=== PATIENT | female | born 1990 | race Caucasian/White ===

== ENCOUNTER 2025-05-03 18:35 | Inpatient (IN) | payer OTHER, MEDICAID, SELFPAY ==
[2025-05-03 18:35] VITALS: BP 118/84; PULSE 99; RESP 18; TEMP 36.9; O2SAT 100; BMI 19.2
--- NOTE | 2025-05-03 19:13 | EX.ED.SAOD ---
HPI History of Present Illness Chief Complaint: Substance Abuse Detail of Chief Complaint: Requesting detox Informant: patient Narrative Narrative: Patient presents to the emergency department requesting detox from opiates. Patient states that she normally goes to a methadone clinic and missed her appointment yesterday. She normally takes 125 mg daily. Patient also over the last several days has been using heroin. Currently feeling chills and sweats. Denies any other complaints. She does not drink alcohol. Patient also states she recently used cocaine. [facility] Medical History (Updated 05/03/25 @ 20:[address] Ángel Smith, DO) Tobacco use Polysubstance abuse Medical History no medical history Allergy/AdvReac Type Severity Reaction Status Date / Time No Known Allergies Allergy Verified 05/03/25 18:38 Surgical History no surgical history Social History Smoking Status: Current every day smoker tobacco type: cigarettes ROS ROS ED Review of Systems ROS Unobtainable: other Constitutional Constitutional ED: Reports chills, lethargy and sweats; Denies fever(s) or weight loss Eyes Eyes: Denies blurry vision, change in vision or diplopia ENT ENT ED: Denies rhinorrhea or sore throat Cardiovascular Cardiovascular: Denies chest pain, orthopnea or racing heartbeat Respiratory/Chest Respiratory/Chest: Denies cough, dyspnea, dyspnea on exertion, orthopnea or sputum Gastrointestinal Gastrointestinal: Denies abdominal pain, diarrhea, nausea or vomiting Genitourinary Genitourinary ED: Denies dysuria, hematuria or urinary frequency Musculoskeletal Musculoskeletal: Denies arthralgias, back pain, myalgias or neck pain Integumentary Denies abscess, Abrasions or rash Neurologic Neurologic: Denies headache(s) or weakness Psychiatric Psychiatric: Denies anxiety, depression or suicidal thoughts Endocrine Endocrinology: Denies polydipsia, polyphagia or polyuria Hematologic/Lymphatic Hematologic/Lymphatic: Denies easy bleeding, easy bruising or lymphadenopathy Allergic/Immunologic Allergic/Immunologic ED: Denies mouth swelling, tongue swelling or urticaria EXAM Physical Exam Const Vital Signs: 05/03/25 18:35 05/03/25 19:35 Temperature 98.4 F Temperature Source Oral Pulse Rate 99 80 Respiratory Rate 18 Blood Pressure 118/84 H 130/87 H Blood Pressure Mean 95 101 Pulse Ox 100 Oxygen Delivery Method Room Air Positive well nourished and well developed General Appearance ED: well developed and NAD HEENT Reports TM's clear and moist mucous membranes normocephalic and atraumatic; Negative for trauma or tenderness Tympanic Membrane ED: Yes TM's clear Eyes PERRL and EOMs intact bilaterally General Eye ED: Negative for pale conjunctiva or scleral icterus Neck no lymphadenopathy, supple and no JVD General: Negative for tenderness Chest Wall inspection of chest normal and palpation of chest normal Chest: Negative for tenderness Resp normal respiratory effort and clear to auscultation bilaterally Effort and Inspection: Negative for respiratory distress or pain with movement Auscultation: Negative for rhonchi, wheezes or diminished lung sounds Cardio regular rate, regular rhythm, S1 normal heart sound, S2 normal heart sound and no murmurs Peripheral Pulses: pulses 2+ throughout GI normal to inspection, nondistended, normoactive bowel sounds, soft to palpation, non-tender, non-distended and no masses Back/Spine no CVA tenderness and no thoracic nor lumbar tenderness Extremity normal to inspection General Extremety ED: Negative for edema General Extremity: Negative for edema Neuro oriented x3, CN's II-XII intact bilaterally, no sensory deficits noted and gait normal Sensorium / Orientation: awake, alert, oriented to person, oriented to place and oriented to time Motor Exam: strength 5/5 throughout and strength abnormal Psych mental status grossly normal Skin no rashes or lesions noted and no wounds MDM MDM MDM Narrative Medical decision making narrative: Patient presents requesting detox from opiates. She has been using methadone from a clinic but also states that she has used heroin. Patient also admits to using cocaine. Patient had basic labs CBC with differential count of 13.0 with hemoglobin 14 and platelet count of 221. Chemistries unremarkable. LFTs were normal. Toxicology screen positive for methadone as well as fentanyl and cocaine. Alcohol was negative. Serum test was negative. Case discussed with hospitalist will evaluate patient for admission Lab Data Attestation: I reviewed the patient's lab results. Labs: Laboratory Results - last 24 hr 05/03/25 19:00 WBC 13.0 H RBC 4.67 Hgb 14.0 Hct 40.6 MCV 86.9 MCH 30.0 MCHC 34.5 RDW Std Deviation 38.2 RDW Coeff of Evangelista 11.9 Plt Count 221 MPV 11.2 Immature Gran % (Auto) 0.300 Neut % (Auto) 87.6 H Lymph % (Auto) 7.7 L [place] % (Auto) 4.1 Eos % (Auto) 0.0 Baso % (Auto) 0.3 Absolute Neuts (auto) 11.4 H Absolute Lymphs (auto) 1.00 Nucleated RBC % 0 Sodium 138 Potassium 3.8 Chloride 103 Carbon Dioxide 19.1 L Anion Gap 15 BUN 8 Creatinine 0.70 Estim Creat Clear Calc 80.83 Est GFR (MDRD) Non-Af 115 BUN/Creatinine Ratio 12.1 Glucose 128 H Calcium 9.9 Total Bilirubin 0.49 AST 21 ALT 18 Alkaline Phosphatase 66 Total Protein 7.6 Albumin 4.6 Globulin 2.9 Albumin/Globulin Ratio 1.6 Serum , Qual NEGATIVE Urine Opiates Screen NEGATIVE U Buprenorphine Qual NEGATIVE Ur Oxycodone Screen NEGATIVE Urine Methadone Screen PRESUMPTIVE POSITIVE Urine Fentanyl Screen PRESUMPTIVE POSITIVE Ur Barbiturates Screen NEGATIVE Ur Phencyclidine Scrn NEGATIVE Ur Amphetamines Screen NEGATIVE U Benzodiazepines Scrn NEGATIVE Urine Cocaine Screen PRESUMPTIVE POSITIVE U Cannabinoids Screen NEGATIVE Ethyl Alcohol < 10.1 Discharge Plan Triage Chief Complaint: Substance Abuse ED Provider: Ángel Smith Dx/Rx/DC Orders Clinical Impression: Opiate withdrawal, Admitted to substance misuse detoxification center Primary Care Provider: Barb Love NP Referrals: Barb Love SUPERVISOR DRAWING, SUPERVISOR DRAWING-C [Primary Care Provider] - Print Language: Cymraes Disposition Disposition: Acute Care Hospital [facility]
[2025-05-03 19:21] LABS: Hematocrit 40.6 % (37-47); Hemoglobin 14.0 g/dL (12.0-15.0); Immature Granulocytes Count 0.040 X10^3/uL (0.0-0.0); Mean Corp Hgb Conc 34.5 g/dL (32-36); Mean Corpuscular Volume 86.9 fL (81-99); Mean Platelet Vol. 11.2 fl (6.2-12.0); NRBC Flagged by Analyzer 0 % (0-5); Platelet Count 221 K/mm3 (150-450); RBC Distribution Width CV 11.9 % (11.6-14.6); RBC Distribution Width SD 38.2 fl (35.1-43.9); Red Blood Count 4.67 M/mm3 (4.2-5.4); White Blood Count 13.0 K/mm3 (4.4-11.0)
--- OUTSIDE RECORDS SUMMARY | 2025-05-03 19:25 | XMS RPT_ITS | CCD ---
Author Organization [facility] Informat [facility] Partnership [facility] Care Team Providers Care Freight Engineer Name Role Phone MARIAJOSE EDMONDSON Admitting Unavailable MARIAJOSE EDMONDSON Attending Unavailable MARIAJOSE EDMONDSON Attending Unavailable No, Physician Primary Care Provider UnavailAlba Still Unavailable NO, PHYSICIAN Primary Care Unavailable DIANNA SANFORD JR. Attending Unav ailable DIANNA SANFORD JR. Admitting Unav ailable NO, PHYSICIAN Primary Care Unavailable ABDI TELLO Attending Un available ABDI TELLO Admitting Un available NO, PHYSICIAN Primary Care Unavailable MICHAEL BROOKS Attending Unavailable MICHAEL BROOKS Admitting Unavailable NO, PHYSICIAN Primary Care Unavailable MARTY APPLE Attending Unavailable NO, PHYSICIAN Primary Care Unavailable ABDI TELLO Attending Un available ABDI TELLO Admitting Un available GONZALO HWANG Admitting Unav ailable GONZALO HWANG Referring Unav ailable NO, PHYSICIAN Primary Care Unavailable Required, No Pcp Unavailable Unavailable Omar Elliott Unavailable [place] garcia Unavailable Unavailable LexiSHEELA Attending SHEELA Garnica Attending Alley valladares NO, PHYSICIAN Primary Care Unavailable Medications Current Medications Medication Drug Class(es) Dates Sig (Normalized) Sig (Original) brompheniramine maleate 0.4 mg/ml / dextromethorphan hydrobromide 2 mg/ml / pseudoephedrine hydrochloride 6 mg/ml oral solution (5 sources) alpha-Adrenergic Agonist, Uncompetitive H-minmrs-K-aspartat e Receptor Antagonist, Sigma-1 Agonist Start: 05-31-2021 take 5 mL by mouth four times daily brompheniramine/p seudoephedrine/de xtromethorphan [id number]-[id number]-[id number]/5 mL oral syrup ; 5 milliliter(s) orally 4 times a day Quantity: 200 Refills: 0 Ordered: 20-Jun-2021 Omar Elliott Start: 20-Jun-2021 Status: Other Generic Substitution Allowed Comments: May cause drowsiness. Alcohol may intensify this effect. Use care when operating dangerous machinery.Obtain medical advice before taking any non-prescription drugs as some may affect the action of this medication. Comment on above: May cause drowsiness . Alcohol may intensify this effect. Use care when operating dangerous machinery.Obtain medical advice before taking any non-prescription drugs as some may affect the action of this medication. buPROPion (4 sources) Aminoketone Wellbutrin Quantity: 0 Refills: 0 Ordered: 31-May-2021 Leigh Tierney Generic Substitution Allowed Wellbutrin Quant ity: 0 Refills: 0 Ordered: 31-May-2021 Leigh Lopez Generic Substitution Allowed cefuroxime 250 mg oral tablet (3 sources) Cephalosporin Antibacterial Start: 10-30-2022 End: 11-05-2022 take 1 tablet by mouth twice daily at mealtime cefuroxime 250 mg oral tablet ; 1 tab(s) orally 2 times a day Quantity: 14 Refills: 0 Ordered: 30-Oct-2022 Omar Elliott Start: 30-Oct-2022 End: 05-Nov-2022 Generic Substitution Allowed Comments: Finish all this medication unless otherwise directed by prescriber.Medication should be taken with plenty of water.Take with food or milk. Start: 06-20-2021 End: 06-26-2021 take 1 tablet by mouth twice daily at mealtime cefuroxime 250 mg oral tablet ; 1 tab(s) orally 2 times a day Quantity: 14 Refills: 0 Ordered: 20-Jun-2021 Omar Elliott Start: 20-Jun-2021 End: 26-Jun-2021 Status: Other Generic Substitution Allowed Comments: Finish all this medication unless otherwise directed by prescriber.Medication should be taken with plenty of water.Take with food or milk. Comment on above: Finish all this medi cation unless otherwise directed by prescriber.Medication should be taken with plenty of water.Take with food or milk. cephalexin 500 mg oral capsule (1 source) Cephalosporin Antibacterial Start: End: take 1 capsule by mouth four times daily cephALEXin (KEFLEX) 500 MG capsule Take 1 (one) capsule (500 mg total) by mouth 4 (four) times a day for 7 days . 28 capsule 0 10/21/2019 10/28/2019 Active gabapentin (4 sources) Anti-epileptic Agent gabapentin Quantity: 0 Refills: 0 Ordered: 31-May-2021 Leigh Tierney Generic Substitution Allowed gabapentin Quant ity: 0 Refills: 0 Ordered: 31-May-2021 Leigh Lopez Generic Substitution Allowed 24 hr nicotine 0.292 mg/hr transdermal system (1 source) Cholinergic Nicotinic Agonist Start: 11-06-2019 End: 12-06-2019 nicotine (NICODERM CQ) 7 mg/[address] 1 (one) patch on the skin daily Do NOT smoke while using this patch . 28 patch 0 11/06/2019 12/06/2019 Active nitrofurantoin, macrocrystals 25 mg / nitrofurantoin, monohydrate 75 mg oral capsule (1 source) Nitrofuran Antibacterial Start: 03-07-2019 End: 03-14-2019 take 1 capsule by mouth twice daily nitrofurantoin, macrocrystal-mon ohydrate, (MACROBID) 100 MG capsule Take 1 (one) capsule (100 mg total) by mouth 2 (two) times a day for 14 doses . 14 capsule 0 03/07/2019 03/14/2019 Active Completed/Discontinued Medications Medication Drug Class(es) Dates Sig (Normalized) Sig (Original) aspirin 325 mg oral tablet (3 sources) Platelet Aggregation Inhibitor, Nonsteroidal Anti-inflammatory Drug Start: 05-31-2021 End: 06-29-2021 take 1 tablet by mouth once daily at bedtime aspirin 325 mg oral tablet ; 1 tab(s) orally once a day (at bedtime) Quantity: 30 Refills: 0 Ordered: 31-May-2021 Omar Elliott Start: 31-May-2021 End: 29-Jun-2021 Status: Other Generic Substitution Allowed Comments: Take with food or milk. Comment on above: Take with food or mi lk. Medrol Dosepak 4 mg oral tablet (3 sources) Start: 05-31-2021 Medrol Dosepak 4 mg oral tablet ; 1 kit orally once a day Quantity: 1 Refills: 0 Ordered: 31-May-2021 Lexi Omar Start: 31-May-2021 Status: Other Generic Substitution Allowed Comments: It is very important that you take or use this exactly as directed. Do not skip doses or discontinue unless directed by your doctor.Obtain medical advice before taking any non-prescription drugs as some may affect the action of this medication.Take with food or milk. Start: 05-31-2021 Medrol Dosepak 4 mg oral tablet ; 1 kit orally once a day Quantity: 1 Refills: 0 Ordered: 31-May-2021 Omar Elliott Start: 31-May-2021 Generic Substitution Allowed Comments: It is very important that you take or use this exactly as directed. Do not skip doses or discontinue unless directed by your doctor.Obtain medical advice before taking any non-prescription drugs as some may affect the action of this medication.Take with food or milk. Comment on above: It is very important that you take or use this exactly as directed. Do not skip doses or discontinue unless directed by your doctor.Obtain medical advice before taking any non-prescription drugs as some may affect the action of this medication.Take with food or milk. phenazopyridine hydrochloride 200 mg oral tablet (2 sources) Start: End: take 1 tablet by mouth three times daily as needed for pain phenazopyridine (PYRIDIUM) 200 MG tablet Take 1 (one) tablet (200 mg total) by mouth 3 (three) times a day as needed for pain . 9 tablet 0 03/07/2019 09/19/2019 Discontinued promethazine hydrochloride 25 mg oral tablet (2 sources) Phenothiazine Start: End: promethazine (PHENERGAN) tablet 25 mg Start: 11-06-2019 End: 11-11-2019 take 25 mg rectal route every six hours as needed promethazine (Phenergan) 25 MG suppository Insert 1 (one) suppository (25 mg total) into the rectum every 6 (six) hours as needed for nausea . 20 each 0 11/06/2019 11/11/2019 Active zinc sulfate 220 mg oral tablet (3 sources) Start: 05-31-2021 End: 06-29-2021 take 1 tablet by mouth once daily at mealtime zinc sulfate 220 mg oral tablet ; 1 tab(s) orally once a day Quantity: 30 Refills: 0 Ordered: 31-May-2021 Omar Elliott Start: 31-May-2021 End: 29-Jun-2021 Status: Other Generic Substitution Allowed Comments: Take with food or milk. Comment on above: Take with food or mi lk. Problems Problem Classification Problem Date Documented Da te Episodic/Chronic Abdominal pain (1 source) Abdominal pain in ; Translations: [Abdominal pain during in first trimester] Episodic Conditions associated with dizziness or vertigo (1 source) Lightheadedness; Translations: [Lightheadedness] Episodic Diseases of white blood cells (1 source) Elevated white blood cell count, unspecified; Translations: [Elevated white blood cell count, unspecified] Onset: 10-12-2018 Chronic Essential hypertension (1 source) Hypertensive disorder; Translations: [Hypertension, unspecified type] Chronic Genitourinary symptoms and ill-defined conditions (2 sources) Dysuria; Translations: [Frequency of micturition] Onset: 10-30-2022 Episodic Immunizations and screening for infectious disease (1 source) Patient encounter status; Translations: [Special screening examination for other specified viral diseases] 07-07-2021 Episodic Inflammatory diseases of female pelvic organs (1 source) Salpingitis and oophoritis, unspecified; Translations: [Salpingitis and oophoritis, unspecified] Onset: 10-13-2018 Episodic Influenza (1 source) Influenza Onset: 06-11-2024 Episodic Nausea and vomiting (2 sources) Nausea and vomiting; Translations: [Nausea] Onset: 10-30-2022 Episodic Noninfectious gastroenteritis (1 source) Gastroenteritis; Translations: [Gastroenteritis] Episodic Other ear and sense organ disorders (1 source) Otalgia, right ear; Translations: [Otalgia, right ear] Onset: 10-06-2022 Episodic Other and delivery including normal (1 source) First trimester ; Translations: [Less than 8 weeks gestation of ] Episodic Other upper respiratory disease (1 source) Nasal congestion; Translations: [Nasal congestion] Onset: 10-06-2022 Episodic Other upper respiratory infections (4 sources) Acute pharyngitis; Translations: [Acute upper respiratory infection] Onset: 10-30-2022 07-07-2021 Episodic Otitis media and related conditions (1 source) Other specified disorders of Eustachian tube, right ear; Translations: [Other specified disorders of Eustachian tube, right ear] Onset: 10-06-2022 Episodic Unclassified (2 sources) MOORE, FEVER 05-31-2021 Comment on above: MOORE, FEVER Unclassified (2 sources) COLD SX 10-30-2022 Comment on above: COLD SX Urinary tract infections (3 sources) Acute urinary tract infection; Translations: [Acute cystitis without hematuria] Onset: 10-30-2022 Episodic Urinary tract infections (2 sources) Urinary tract infections 06-20-2021 Comment on above: SORE THROAT AND POSS IBLE UTI Viral infection (3 sources) Disease caused by 2019-nCoV 07-07-2021 Comment on above: COVID LIKE SX Results Test Name Value Interpretation Reference Range Facility COVID-19/INFLUENZA A,B MOLEC ULARon 06-11-2024 SARS-CoV-2 (COVID-19) Ab IA Ql SARS-COV-2 (KATE) Detected INFLUENZA A (KATE) Not Detected INFLUENZA B (KATE) Not Detected Abnormal Not Detected [facility] Comment on above: Performed By: #### L [id number] #### [facility] [address], [place] [address] Maxi Brian M.D. [id number] Provider Note - ED v3on Provider Note - ED v3 Provider Note: Chart Review: HISTORY OF PRESENTING ILLNESS FELISA is a 32 year old Female and was seen by me at 30-Oct-2022 11:04. Additional Details: 2 complaints: 1) dysuria: Patient has complaints of increased frequency, pain with urination, mild nausea and pelvic abdominal discomfort, she denies any new sexual encounters, denies any back pain, notable fever or vaginal discharge/bleeding. She denies being chance of . 2) URI symptoms: Patient's children are also suffering from similar symptoms, patient denies any fever, she denies any exertional dyspnea, sore throat but she does endorse some mild congestion and subtle NPNB cough. Triage Information: Most recent Vital Sign Value Date PAST MEDICAL HISTORY ALLERGIES/INTOLERANC ES: No Known Allergies HEALTH HISTORY: No documented data. OUTPATIENT MEDICATIONS: Home Medications Review Status for Reconciliation: Complete Med Status: Patient Currently Takes Medications Drug Name: gabapentin Instructions: null Drug Name: Wellbutrin Instructions: null Drug Name: cefuroxime 250 mg oral tablet Instructions: 1 tab(s) orally 2 times a day SIGNIFICANT EVENTS: Past Surgical History Description:OPEN HEART SURGERY. REVIEW OF SYSTEMS CONSTITUTIONAL: Negative for: chills, fever and malaise ENMTNose: POSITIVE for: congestion RESPIRATORY: POSITIVE for: cough GENITOURINARY: POSITIVE for: dysuria, frequency and urgency; PHYSICAL EXAM CONSTITUTIONAL: Well appearing, well nourished, awake, alert, oriented to person, place, time/situation and in no apparent distress. HENMT: Head Examination: atraumatic Face: no signs of abnormality Ear: - BILATERAL TM's CLEAR Nose: INFLAMMATION Mouth: normal mouth inspection Throat: normal pharynx EYES: Clear bilaterally, pupils equal, round and reactive to light. CARDIOVASCULAR: Normal rate, regular rhythm. Heart sounds S1, S2. No murmurs, rubs or gallops. PMI non-displaced. RESPIRATORY: Breath sounds clear and equal bilaterally. GASTROINTESTINAL: Abdominal Exam: soft, nondistended and no organomegaly Masses: no mass on examination Bowel Sounds Detail: Bowel Sounds: normal Abdominal Tenderness: non-tender (Negative McBurney point tenderness, negative psoas sign negative Rovsing sign, negative CVA tenderness.) Abdominal Guarding: no guarding Rebound: no rebound tenderness GENITOURINARY: deferred MUSCULOSKELETAL: Spine appears normal, UE/LE range of motion is not limited, no muscle or joint tenderness. NEUROLOGICAL: Alert and oriented, no focal deficits, no motor or sensory deficits. SKIN: Skin normal color for race, warm, dry and intact. No evidence of trauma. HEME/LYMPH: No adenopathy or splenomegaly. No cervical, supraclavicular or inguinal lymphadenopathy. CRITICAL CARE RESULTS: Recent Lab Results: Nitrate positive [id number] urinalysis will be sent for culture and sensitivity. VITAL SIGNS: T PRBP SpO2O2(LPM) %FiO2 Method 30-Oct-2022 11:15:[id number] /78 95RA MDM MDM/ED COURSE: 1) acute cystitis with nitrate positive urine: Patient be treated empirically with Ceftin will await C&S, and call patient with results when available. Encouraged to push fluids 2) URI symptoms: Patient be treated supportively, encouraged to push fluids take [id number] medications as needed she agrees plan of care she was discharged with note for work.Discussed Findings with: patient Data Reviewed: vital signs Conducted Detailed Discussion with Patient and/or Guardian Regarding: lab results and need for outpatient follow-up DISPOSITION Diagnosis/Annotation : ED Dx Name:Acute cystitis Code:N30.00 Name:URI with cough and congestion Code:J06.9 Disposition: discharged CONSULT CRITICAL CARE TIME Is this a critically ill patient: no Electronic Signatures: Omar Elliott (PAC) (Signed 30-Oct-2022 12:11) Authored: HPI, PMH, ROS, PE, Results/Vital Signs, MDM/ED Course, Clinical Impression, Attestation, Chart Review, Scores Last Updated: 30-Oct-2022 12:11 by Omar Elliott (PAC) [facility] URINE CULTURE,BACTERIALon URINE CULTURE,BACTERIAL PATIENT: FELISA SCHREIBER LOCATION: [facility]#: [id number] : 86 AGE: SEX: F ORDERED BY: OMAR ELLIOTT SOURCE: URINE COLLECTED: 10/30/22 15:39 ANTIBIOTICS AT YOUSIF.: RECEIVED : 10/30/22 23:38 SITE: Clean Catch/Voided R E S U L T S URINE CULTURE,BACTERIAL FINAL 11/01/22 15:17 ISOLATE1 : Escherichia coli >100,000 CFU/ML ____ Organism E coli Antibiotic BP INTRP ____ Ampicillin S Ceftriaxone S Cefazolin S Ciprofloxacin S Nitrofurantoin S Gentamicin S Levofloxacin S Piperc/Tazobact S Trimeth/Sulfa S S=SUSCEPTIBLE I=INTERMEDIATE R=RESISTANT SDD=SUSCEPTIBLE DOSE DEPENDENT NS=NONSUSCEPTIBLE X=REPORTED IN ERROR Normal [facility] Comment on above: Performed By: #### U RIN #### [facility] [id number] [place] [address] Provider Note - ED v3on 09-24 Provider Note - ED v3 Provider Note: Chart Review: HISTORY OF PRESENTING ILLNESS FELISA is a 32 year old Female and was seen by me at 06-Oct-2022 10:13 for a chief complaint of sinus congestion/pain. The historian is the patient. Triage Information: Most recent Vital Sign Value Date Presenting Symptoms: congestion and earache.Located in the right and ear(s) area. Quality is aching and pressure. Context is Unknown. day(s). The timing is gradual onset and constant. Modifying factors: Better with OTC medication.Pertinent history is none related to reason for visit. PAST MEDICAL HISTORY CURRENT OR FORMER SUBSTANCE USE: Tobacco/Nicotine Use: never smoker ALLERGIES/INTOLERANC ES: No Known Allergies HEALTH HISTORY: No documented data. OUTPATIENT MEDICATIONS: Home Medications Review Status for Reconciliation: Complete Med Status: Patient Currently Takes Medications Drug Name: gabapentin Instructions: null Drug Name: Wellbutrin Instructions: null Drug Name: brompheniramine/pseu doephedrine/dextrome thorphan 4gn-[id number]-79fh/5 mL oral syrup Instructions: 5 milliliter(s) orally 4 times a day, As Needed -for congestion - for cough Drug Name: fluticasone 50 mcg/inh nasal spray Instructions: 50 microgram(s) in each nostril once a day SIGNIFICANT EVENTS: Past Surgical History Description:OPEN HEART SURGERY. DIRECTOR DISTRIBUTION: Is : no REVIEW OF SYSTEMS CONSTITUTIONAL: Negative for: chills, fever and malaise ENMTEars: POSITIVE for: pain Nose: POSITIVE for: congestion Throat/Neck: Negative for: throat pain PHYSICAL EXAM CONSTITUTIONAL: Well appearing, well nourished, awake, alert, oriented to person, place, time/situation and in no apparent distress. HENMT: Head Examination: atraumatic Face: no signs of abnormality Ear: - LEFT TM CLEAR - RIGHT TM BULGING Nose: normal inspection Mouth: normal mouth inspection Teeth: no visible abnormalities Throat: normal pharynx EYES: Clear bilaterally, pupils equal, round and reactive to light. CARDIOVASCULAR: Normal rate, regular rhythm. RESPIRATORY: Breath sounds clear and equal bilaterally. MUSCULOSKELETAL: Spine appears normal, range of motion is not limited, no muscle or joint tenderness. SKIN: Skin normal color for race, warm, dry and intact. No evidence of trauma. CRITICAL CARE VITAL SIGNS: T PRBP SpO2O2(LPM) %FiO2 Method 06-Oct-2022 10:01:[id number] /72 96RA [facility] MDM/ED COURSE: 1) URI with cough and congestion, and a eustachian tube dysfunction right sided: Supportive care rendered, discussed Valsalva maneuvers, discussed use of prescription meds and 10 mg Decadron provided in the office, patient agrees plan of care we did provide a note for work she was discharged.Different ial Diagnosis: allergic rhinitis, laryngitis, otitis externa, otitis media, pain and pharyngitis Discussed Findings with: patient Data Reviewed: vital signs Conducted Detailed Discussion with Patient and/or Guardian Regarding: need for outpatient follow-up DISPOSITION Diagnosis/Annotation : ED Dx Name:Dysfunction of right eustachian tube Code:H69.81 Name:URI with cough and congestion Code:J06.9 Disposition: discharged CONSULT CRITICAL CARE TIME Is this a critically ill patient: no Electronic Signatures: Omar Elliott (PAC) (Signed 06-Oct-2022 11:18) Authored: HPI, PMH, ROS, PE, Results/Vital Signs, MDM/ED Course, Clinical Impression, Attestation, Chart Review, Scores Last Updated: 06-Oct-2022 11:18 by Omar Elliott (PAC) Normal [facility] COVID-19, MOLECULARon 2019 SARS-COV-2 RNA (ARCELIA) Not Detected Normal Not Detected [facility] Comment on above: Order Comment: Niesha Hwang [phone] Result Comment: This test was performed under the FDA's Emergency Use Authorization (EUA). Testing was performed using the Brenda SARS-CoV-2 assay on the [employer] Brenda 6800 System. This test has not been approved for use in asymptomatic patients and its performance in this patient population has not been evaluated. Negative results do not rule out the presence of SARS-CoV-2/COVID-19. Fact sheets for this EUA can be found at the following links: For Healthcare Providers: https://www.fda.gov/media/558769/download For Patients: https://www.fda.gov/media/999718/download Performed By: #### L [id number] #### [facility] [address] [place] [address] Russ Olson M.D. [id number] [facility] 11-04-2019 Anion gap [Moles/Vol] 11 mmol/L 10 - 20 mmol/L [facility] Calcium [Mass/Vol] 8.8 mg/dL 8.4 - 10. 2 mg/dL [facility] Chloride [Moles/Vol] 104 mmol/L 98 - 108 mmol/L [facility] Creatinine [Mass/Vol] 0.69 mg/dL 0.40 - 1.10 [facility] GFR/1.73 sq M predicted among non-blacks MDRD (S/P/Bld) [Vol rate/Area] The eGFR should be used for monitoring renal function only and not for medication dosing. [facility] GFR/1.73 sq M.predicted CKD-EPI (S/P/Bld) [Vol rate/Area] 116 >=60 mL/min/1.73 m2 [facility] Glucose [Mass/Vol] 75 mg/dL 65 - 99 mg/dL [facility] HCO3 [Moles/Vol] 24 mmol/L 21 - 32 mmol/L [facility] Potassium [Moles/Vol] 3.3 mmol/L Low 3.5 - 5.1 mmol/L [facility] Sodium [Moles/Vol] 136 mmol/L 135 - 145 mmol/L [facility] Urea nitrogen [Mass/Vol] 10 mg/dL 8 - 25 mg/dL [facility] Urea nitrogen/Creatinine [Mass ratio] 14.5 mg/mg [facility] CBC WITH AUTO DIFFERENTIALon 11-04-2019 Basophils (Bld) [#/Vol] 0.05 10*3/uL [facility] Basophils/100 WBC (Bld) 0.6 % [facility] Eosinophils (Bld) [#/Vol] 0.12 10*3/uL [facility] Eosinophils/100 WBC (Bld) 1.4 % [facility] Erythrocyte distribution width (RBC) [Entitic vol] 13.3 % 11.6 - 14.8 % [facility] Hematocrit (Bld) [Volume fraction] 42.0 % 36 - 46 % [facility] Hemoglobin (Bld) [Mass/Vol] 14.4 g/dL 12 - 16 g/dL [facility] Immature granulocytes (Bld) [#/Vol] 0.03 10*3/uL [facility] Immature granulocytes/100 WBC (Bld) 0.30 % [facility] Comment on above: The IG parameter is the percentage of metamyelocytes, myelocytes, and promyelocytes. Lymphocytes (Bld) [#/Vol] 2.24 10*3/uL [facility] Lymphocytes/100 WBC (Bld) 25.7 % [facility] MCH (RBC) [Entitic mass] 31.8 pg 26 - 34 pg [facility] MCHC (RBC) [Mass/Vol] 34.3 g/dL 31 - 37 g/dL [facility] MCV (RBC) [Entitic vol] 92.7 fL 80 - 100 fL [facility] Monocytes (Bld) [#/Vol] 0.66 10*3/uL [facility] Monocytes/100 WBC (Bld) 7.6 % [facility] Neutrophils (Bld) [#/Vol] 5.63 10*3/uL [facility] Neutrophils/100 WBC (Bld) 64.4 % [facility] Nucleated RBC (Bld) [#/Vol] 0.00 10*3/uL [facility] Nucleated RBC/100 WBC (Bld) [Ratio] 0.0 % [facility] Platelet mean volume (Bld) [Entitic vol] 11.1 fL 9 - 15.5 fL [facility] Platelets (Bld) [#/Vol] 196 10*3/uL [facility] RBC (Bld) [#/Vol] 4.53 10*6/uL [facility] eah WBC (Bld) [#/Vol] 8.73 10*3/uL [facility] HCG (QUANTITATIVE)on 020 Beta HCG ( test) Ql (U) Males and non females: <5 mIU/mL Females during : 3-4 weeks 9-130 mIU/mL 4-5 weeks 75-2600 mIU/mL 5-6 weeks 850-20,800 mIU/mL 6-7 weeks 4000-100,200 mIU/mL 7-12 weeks 11,500-289,000 mIU/mL 12-16 weeks 18,300-137,000 mIU/mL 16-29 weeks 1,400-53,000 mIU/mL 29-41 weeks 940-60,000 mIU/mL [facility] HCG Qn 32 m[IU]/mL High [facility] Otheron 11-04-2019 Interpretation and review of laboratory results Abnormal [facility] POC , Urineon 11-04 HCG ( test) Ql (U) Positive Abnormal Negative [facility] [facility] Interpretation and review of laboratory results Abnormal [facility] HCG ( test) Ql (U) Positive Abnormal Negative [facility] Interpretation and review of laboratory results Abnormal [facility] Urinalysis Dipstick, Aut oon 11-04-2019 Bilirubin Ql (U) Negative Negative [facility] Glucose Ql (U) Negative Negative mg/dL [facility] Hemoglobin Ql (U) Negative Negative [facility] Interpretation and review of laboratory results Normal [facility] Ketones Ql (U) Negative Negative mg/dL [facility] Leukocyte esterase Test strip Ql (U) Negative Negative [facility] Nitrite Ql (U) Negative Negative [facility] pH (U) 6.5 [pH] [facility] Protein Ql (U) Negative Negative mg/dL [facility] Specific gravity (U) [Rel density] 1.020 [facility] Urobilinogen Qn (U) 1.0 mg/dL <2.0 [facility] POC , Urineon 10-21 Beta HCG ( test) Ql (U) Dilute urine specimens, as indicated by a low specific gravity (<1.010) may not contain printing sales representative levels of hCG. If is still suspected, a serum test or repeat urine test using a first morning urine specimen should be considered. [facility] HCG ( test) Ql (U) Negative Negative [facility] Interpretation and review of laboratory results Normal [facility] Urinalysis Dipstick, Aut oon 10-21-2019 Bilirubin Ql (U) Negative Negative [facility] th Glucose Ql (U) Negative Negative mg/dL [facility] Hemoglobin Ql (U) Trace-intact Abnormal Negative [facility] Interpretation and review of laboratory results Abnormal [facility] Ketones Ql (U) Negative Negative mg/dL [facility] Leukocyte esterase Test strip Ql (U) Trace Abnormal Negative [facility] Nitrite Ql (U) Positive Abnormal Negative [facility] pH (U) 6.5 [pH] [facility] Protein Ql (U) Negative Negative mg/dL [facility] Specific gravity (U) [Rel density] 1.025 [facility] Urobilinogen Qn (U) 0.2 mg/dL <2.0 [facility] ECG 12-LEADon 09-19-2019 Abdi Tello MD 09/19/2019 5:50 PM EKG 12-lead Date/Time: 09/19/2019 5:00 PM Performed by: Abdi Tello MD Authorized by: Abdi Tello MD Previous ECG: no previous ECG available Rhythm: sinus rhythm BPM: 82 Conduction: conduction normal ST Segments: ST segments normal QRS axis: normal T Waves: T waves normal Other: no other findings Clinical impression: normal ECG [facility] POC , Urineon 09-19 Beta HCG ( test) Ql (U) Dilute urine specimens, as indicated by a low specific gravity (<1.010) may not contain printing sales representative levels of hCG. If is still suspected, a serum test or repeat urine test using a first morning urine specimen should be considered. [facility] HCG ( test) Ql (U) Negative Negative [facility] Interpretation and review of laboratory results Normal [facility] Rapid Strep Aon 09-19-20 19 Interpretation and review of laboratory results Normal [facility] S. pyogenes Ag Ql (Throat) Negative Negative [facility] POC Urinalysis Dipstick, Aut oon 09-19-2019 Bilirubin Ql (U) Negative Negative [facility] Glucose Ql (U) Negative Negative mg/dL [facility] Hemoglobin Ql (U) Negative Negative [facility] Interpretation and review of laboratory results Normal [facility] Ketones Ql (U) Negative Negative mg/dL [facility] Leukocyte esterase Test strip Ql (U) Negative Negative [facility] Nitrite Ql (U) Negative Negative [facility] pH (U) 5.5 [pH] [facility] Protein Ql (U) Negative Negative mg/dL [facility] Specific gravity (U) [Rel density] 1.020 [facility] Urobilinogen Qn (U) 0.2 mg/dL <2.0 [facility] ealt BMPon 03-07-2019 Anion gap molar conc 12 mmol/L 10 - 20 mmol/L [facility] Calcium mass conc 8.8 mg/dL 8.4 - 10.2 mg/dL [facility] Chloride molar conc 105 mmol/L 98 - 108 mmol/L [facility] Creatinine mass conc 0.86 mg/dL 0.4 - 1.1 mg/dL [facility] GFR/1.73 sq M predicted among non-blacks MDRD vol rate/area (S/P/Bld) The eGFR should be used for monitoring renal function only and not for medication dosing. [facility] GFR/1.73 sq M.predicted CKD-EPI vol rate/area (S/P/Bld) 91 >=60 mL/min/1.73 m2 [facility] Glucose mass conc 83 mg/dL 65 - 99 mg/dL [facility] HCO3 molar conc 25 mmol/L 21 - 32 mmol/L [facility] Potassium molar conc 3.5 mmol/L 3.5 - 5.1 mmol/L [facility] Sodium molar conc 138 mmol/L 135 - 145 mmol/L [facility] Urea nitrogen mass conc 10 mg/dL 8 - 25 mg/dL [facility] Urea nitrogen/Creatinine mass ratio 11.6 mg/mg [facility] CBC WITH AUTO DIFFERENTIALon 03-07-2019 Basophils #/vol (Bld) 0.03 10*3/uL [facility] Basophils/100 WBC (Bld) 0.3 % [facility] Eosinophils #/vol (Bld) 0.03 10*3/uL [facility] Eosinophils/100 WBC (Bld) 0.3 % [facility] Erythrocyte distribution width Entitic volume (RBC) 11.8 % 11.6 - 14.8 % [facility] Hematocrit Volume Fraction (Bld) 37.7 % 36 - 46 % [facility] Hemoglobin mass conc (Bld) 12.8 g/dL 12 - 16 g/dL [facility] Immature granulocytes #/vol (Bld) 0.02 10*3/uL [facility] Immature granulocytes/100 WBC (Bld) 0.20 % [facility] Comment on above: The IG parameter is the percentage of metamyelocytes, myelocytes, and promyelocytes. Interpretation and review of laboratory results Abnormal [facility] Lymphocytes #/vol (Bld) 1.35 10*3/uL [facility] Lymphocytes/100 WBC (Bld) 13.3 % [facility] MCH Entitic mass (RBC) 30.0 pg 26 - 34 pg [facility] MCHC mass conc (RBC) 34.0 g/dL 31 - 37 g/dL [facility] MCV Entitic volume (RBC) 88.5 fL 80 - 100 fL [facility] Monocytes #/vol (Bld) 0.93 10*3/uL High [facility] Monocytes/100 WBC (Bld) 9.1 % [facility] Neutrophils #/vol (Bld) 7.81 10*3/uL High [facility] Neutrophils/100 WBC (Bld) 76.8 % [facility] Platelet mean volume Entitic volume (Bld) 11.0 fL 9 - 15.5 fL [facility] Platelets #/vol (Bld) 231 10*3/uL [facility] RBC #/vol (Bld) 4.26 10*6/uL [facility] WBC #/vol (Bld) 10.17 10*3/uL [facility] alth Hepatic Function Panel (LFT) on 03-07-2019 Albumin mass conc 3.8 g/dL 3.2 - 5.2 g/dL [facility] ALP enzyme act/vol 71 U/L 40 - 140 U/L [facility] ALT enzyme act/vol 16 U/L 14 - 65 U/L [facility] ealt AST enzyme act/vol 14 U/L 0 - 45 U/L [facility] alth Bilirubin mass conc 0.7 mg/dL 0 - 1.3 mg/dL [facility] Bilirubin.conjugate d mass conc 0.1 mg/dL 0 - 0.4 mg/dL [facility] Protein mass conc 8.0 g/dL 6 - 8 g/dL [facility] Otheron 03-07-2019 Interpretation and review of laboratory results Normal [facility] URINALYSISon 03-07-2019 Bacteria Auto Ql (U) Many Abnormal None Seen /hpf [facility] Bilirubin Ql (U) Negative Negative [facility] th Clarity Refractometry automated Nom (U) Cloudy Abnormal Clear [facility] Color Nom (U) Yellow Colorless, Yellow [facility] Epithelial cells.squamous Auto #/area (Urine sed) 3 [facility] Glucose Automated test strip mass conc (U) Negative Negative mg/dL [facility] Hemoglobin Automated test strip Ql (U) Small Abnormal Negative [facility] Interpretation and review of laboratory results Abnormal [facility] Ketones mass conc (U) Negative Negative mg/dL [facility] Leukocyte esterase Automated test strip Ql (U) Small Abnormal Negative [facility] Mucus Auto #/area (Urine sed) Few Abnormal None Seen, Rare /lpf [facility] Nitrite Automated test strip Ql (U) Positive Abnormal Negative [facility] pH (U) 6.0 [pH] [facility] Protein mass conc (U) Negative Negative mg/dL [facility] RBC Auto #/area (Urine sed) 3 [facility] Specific gravity Relative Density (U) 1.015 [facility] Urobilinogen mass conc (U) <2.0 <2.0 mg/dL [facility] WBC Auto #/area (Urine sed) 60 High [facility] Microscopic examination is performed on all urinalysis samples and only positive findings are reported. The test for blood on the chemical analytic portion of urinalysis may also be positive due to hemoglobinuria and myoglobinuria and if red blood cells are present they are quantified by microscopic examination. [facility] Urine Pregnancyon 03-07-2019 HCG ( test) Ql (U) Negative Negative [facility] Interpretation and review of laboratory results Normal [facility] CNOVon 10-29-2018 CNOV Office Visit ([facility]) FELISA SCHREIBER ([id number]) 1990 F Date Time Provider Department 10/29/18 2:30 PM MARIAJOSE EDMONDSON [facility] During your visit today, we recorded the following information about you: Blood pressure Weight Last Period 112/70 64.4 kg 09/30/18 Mariajose Edmondson MD 10/29/2018 2:49 PM Signed Reason for office visit ; follow up from hospital visit with left PID HPI : Felisa Schreiber is a 28 year old female who presents for problem visit : Was admitted in hospital on 10/12/2018 to 10/14/2018 for Left Tubo-ovarian abscess. Was on IV antibiotics followed 12 days course of ral antibiotics. She is done with antibiotics and denies any pain or abnormal vaginal discharge now. Her chlamydia was positive. PAST MEDICAL HISTORY Diagnosis Date - Heart murmur 1990 REAPIRED WHEN SHE WAS 7 MONTHS OLD - Pelvic inflammatory disease (PID) PAST SURGICAL HISTORY Procedure Laterality Date - HEART SURGERY HX 1988 History reviewed. No pertinent family history. Social History Marital status: Single Spouse name: Years of education: Number of children: Social History Main Topics Smoking status: Never Smoker Smokeless tobacco: Never Used Comment: past smoker Alcohol use: No Drug use: Yes Types: Cocaine Comment: past history of cocaine Sexual activity: Yes Partners with: Male control/protection: None Current Outpatient Prescriptions: doxycycline monohydrate 100 mg tablet take 1 tablet by mouth twice a day for 14 days ibuprofen (MOTRIN) 600 mg tablet Take 1 tablet by mouth every 8 hours as needed for Pain. No current facility-administere d medications for this visit. Allergies As of Date: 10/29/2018 (No Known Allergies) Fully Assessed 10/29/2018 REVIEW OF SYSTEMS Abdomen: No bloating, early satiety, indigestion, or increased flatulence. No abdominal pain, nausea, vomiting, diarrhea, or constipation. Bladder: No dysuria, gross hematuria, urinary frequency, urinary urgency, or incontinence. Breast: No breast lumps, nipple d/c, overlying skin changes, redness or skin retraction. Expanded ROS: N/A Allergies and current medication updated:Yes EXAM: BP 112/70 Wt 142 lb (64.4kg) LMP 09/30/2018 GENERAL: pleasant, female in no apparent distress HEENT: Normocephalic, atraumatic, mucus membranes moist and no lesions NECK: Supple, full range of motion, no adenopathy and thyroid normal DERMATOLOGY: Normal, without lesions, non-icteric and non-hirsute CHEST: Normal inspiratory effort ABDOMEN: soft, non-tender and no masses PELVIC: external genitalia normal, normal Bartholin's glands, urethra, [place]'s glands, no vulvar lesions, no cervical lesions, good vaginal support, physiologic discharge present, normal appearing perineal body and perianal region BIMANUAL: uterus normal size, shape and consistency, no adnexal masses and non-tender NEURO: alert and oriented x3,exam grossly non-focal EXTREMITIES: normal ASSESSMENT AND PLAN: S/p Left Tubo-ovarian abscess s/p treatment Positive chlamydia on 10/12/2018 Plan : 1. Will do test of cure chlamydia in 4 weeks 2. Requested Ultrasound to repeat 2 weeks 3. Reassured 4. Will follow up with results and call her. RGYN as needed Total time spent 25 minutes, more than 50% of time was spent talking face to face. Mariajose Edmondson MD Referring Provider: SELF [200] Allergies As of Date: 10/29/2018 (No Known Allergies) Date Reviewed: 10/29/2018 Reviewed by: Mariajose Edmondson - Fully Assessed Reason for Visit: Hospital Follow Up [177] Cmt: PID Visit Diagnoses:Tubo-ovari an abscess [N70.93] Chlamydial female pelvic inflammatory disease [A56.11] Order(s):GC/CHLAMYDI A DNA DET [SQGCCAMP] Order #: [id number] Prescriptions as of 10/29/2018 Sig: DOXYCYCLINE MONOHYDRATE 100 M* take 1 tablet by mouth twice * IBUPROFEN 600 MG TABLET Take 1 tablet by mouth every * Problem List As Of Date 10/29/2018 Noted Resolved Tubo-ovarian abscess [N70.93] INVALID FOR* Disposition: Return in about 4 weeks (around 11/26/2018), or if symptoms worsen or fail to improve. Follow-up and Disposition History Recorded Encounter Status:Closed by MARIAJOSE EDMONDSON MD on 10/29/18 [facility] PROGRESSon 10-29-2018 Protein mass conc HNO ID: [id number] Author: Mariajose Edmondson Service: (none) Author Type: Physician Type: Progress Notes Filed: 10/29/2018 2:49 PM Note Text: Reason for office visit ; follow up from hospital visit with left PID HPI : Felisa Schreiber is a 28 year old female who presents for problem visit : Was admitted in hospital on 10/12/2018 to 10/14/2018 for Left Tubo-ovarian abscess. Was on IV antibiotics followed 12 days course of ral antibiotics. She is done with antibiotics and denies any pain or abnormal vaginal discharge now. Her chlamydia was positive. PAST MEDICAL HISTORY Diagnosis Date - Heart murmur 1988 REAPIRED WHEN SHE WAS 7 MONTHS OLD - Pelvic inflammatory disease (PID) PAST SURGICAL HISTORY Procedure Laterality Date - HEART SURGERY HX 1988 History reviewed. No pertinent family history. Social History Marital status: Single Spouse name: Years of education: Number of children: Social History Main Topics Smoking status: Never Smoker Smokeless tobacco: Never Used Comment: past smoker Alcohol use: No Drug use: Yes Types: Cocaine Comment: past history of cocaine Sexual activity: Yes Partners with: Male control/protection: None Current Outpatient Prescriptions: doxycycline monohydrate 100 mg tablet take 1 tablet by mouth twice a day for 14 days ibuprofen (MOTRIN) 600 mg tablet Take 1 tablet by mouth every 8 hours as needed for Pain. No current facility-administere d medications for this visit. Allergies As of Date: 10/29/2018 (No Known Allergies) Fully Assessed 10/29/2018 REVIEW OF SYSTEMS Abdomen: No bloating, early satiety, indigestion, or increased flatulence. No abdominal pain, nausea, vomiting, diarrhea, or constipation. Bladder: No dysuria, gross hematuria, urinary frequency, urinary urgency, or incontinence. Breast: No breast lumps, nipple d/c, overlying skin changes, redness or skin retraction. Expanded ROS: N/A Allergies and current medication updated:Yes EXAM: BP 112/70 Wt 142 lb (64.4kg) LMP 09/30/2018 GENERAL: pleasant, female in no apparent distress HEENT: Normocephalic, atraumatic, mucus membranes moist and no lesions NECK: Supple, full range of motion, no adenopathy and thyroid normal DERMATOLOGY: Normal, without lesions, non-icteric and non-hirsute CHEST: Normal inspiratory effort ABDOMEN: soft, non-tender and no masses PELVIC: external genitalia normal, normal Bartholin's glands, urethra, [place]'s glands, no vulvar lesions, no cervical lesions, good vaginal support, physiologic discharge present, normal appearing perineal body and perianal region BIMANUAL: uterus normal size, shape and consistency, no adnexal masses and non-tender NEURO: alert and oriented x3,exam grossly non-focal EXTREMITIES: normal ASSESSMENT AND PLAN: S/p Left Tubo-ovarian abscess s/p treatment Positive chlamydia on 10/12/2018 Plan : 1. Will do test of cure chlamydia in 4 weeks 2. Requested Ultrasound to repeat 2 weeks 3. Reassured 4. Will follow up with results and call her. RGYN as needed Total time spent 25 minutes, more than 50% of time was spent talking face to face. Mariajose Edmondson MD Normal [facility] ALLIED HEALTHon 10-14-2018 ALLIED HEALTH HNO ID: [id number] Author: Sr Gonzalez () Arely Service: Spiritual Care Author Type: [employer] Type: Allied Health Filed: 10/14/2018 2:08 PM Note Text: SPIRITUAL CARE ASSESSMENT SERVICE DATE: 10/14/2018 SERVICE TIME: 1354 TYPE OF VISIT: Introductory Visit. Urgency of Visit: Routine. Visit was with: Patient . INITIAL ASSESSMENT VISIT: Additional Notes: Patient is resting and brief pastoral care introduction visit shared with patient. Pastoral care support and presence provided at bedside. Follow-up Notes: Informed patient of [employer] availability.. For immediate or Emergent need call PBX ([phone]), and ask to page for the Chaplains. For non emergent need call [phone] or submit an [facility] consult. SIGNATURE: Chaplain [place] PATIENT NAME: Felisa Schreiber DATE: October 14, 2018 TIME: 2:05 PM PAGER/CONTACT #: [phone] Normal [facility] CBC and Differentialon 10-14 Abs Baso 0.07 k/uL Normal <0.11 [facility] Comment on above: Performed By: #### C BCDIF ####[facility] [facility] [place] [phone] Abs [place] 0.68 k/uL Normal <0.87 [facility] Comment on above: Performed By: #### C BCDIF ####[facility] [facility], [place] [phone] Abs Neut 5.32 k/uL Normal 1.45-7.50 [facility] Comment on above: Performed By: #### C BCDIF ####[address] [place] [phone] Absolute nRBC <0.01 Normal <0.01 [facility] Comment on above: Performed By: #### C BCDIF ####[address] [place] [phone] Basophils/100 WBC (Bld) 0.9 % Normal [facility] Comment on above: Performed By: #### C BCDIF ####[address] [place] [phone] DTYPE Auto Diff Normal [facility] Comment on above: Performed By: #### C BCDIF ####[address] [place] [phone] Eosinophils #/vol (Bld) 0.19 10*3/uL Normal <0.46 [facility] Comment on above: Performed By: #### C BCDIF ####[address] [place] [phone] Eosinophils/100 WBC (Bld) 2.3 % Normal [facility] Comment on above: Performed By: #### C BCDIF ####[phone] Erythrocyte distribution width Ratio (RBC) 12.0 % Normal 11.5-15.0 [facility] Comment on above: Performed By: #### C BCDIF ####[address] [place] [phone] Hematocrit Volume Fraction (Bld) 42.9 % Normal 36.0-46.0 [facility] Comment on above: Performed By: #### C BCDIF ####[address] [place] [phone] Hemoglobin mass conc (Bld) 14.0 g/dL Normal 11.5-15.5 [facility] Comment on above: Performed By: #### C BCDIF ####[address] [phone] Lymphocytes #/vol (Bld) 1.92 10*3/uL Normal 1.00-4.00 [facility] Comment on above: Performed By: #### C BCDIF ####[address] [phone] Lymphocytes/100 WBC (Bld) 23.5 % Normal [facility] Comment on above: Performed By: #### C BCDIF ####[address] [phone] MCH Entitic mass (RBC) 30.2 pG Normal 26.0-34.0 [facility] Comment on above: Performed By: #### C BCDIF ####[address] [phone] MCHC mass conc (RBC) 32.6 g/dL Normal 30.5-36.0 [facility] Comment on above: Performed By: #### C BCDIF ####[address] [phone] MCV Entitic volume (RBC) 92.5 fL Normal 80.0-100.0 [facility] Comment on above: Performed By: #### C BCDIF ####[address] [phone] Monocytes/100 WBC (Bld) 8.3 % Normal [facility] Comment on above: Performed By: #### C BCDIF ####[address] [phone] Neutrophils/100 WBC (Bld) 65.0 % Normal [facility] Comment on above: Performed By: #### C BCDIF ####[address] [place] [phone] NRBCs 0.0 /100 WBC Normal 0 [facility] Comment on above: Performed By: #### C BCDIF ####[address] [place] [phone] Platelet mean volume Entitic volume (Bld) 11.4 fL Normal 9.0-12.7 [facility] Comment on above: Performed By: #### C BCDIF ####[address] [place] [phone] Platelets #/vol (Bld) 294 10*3/uL Normal 150-400 [facility] Comment on above: Performed By: #### C BCDIF ####[address] [phone] RBC #/vol (Bld) 4.64 10*6/uL Normal 3.90-5.20 [facility] Comment on above: Performed By: #### C BCDIF ####[address] [place] [phone] WBC #/vol (Bld) 8.18 10*3/uL Normal 3.70-11.00 [facility] Comment on above: Performed By: #### C BCDIF ####[address] [place] [phone] HISTORY PHYSICALon 9 HISTORY PHYSICAL HNO ID: [id number] Author: Mariajose Edmondson Service: Gynecology Author Type: Physician Type: HANDP Filed: 10/14/2018 7:46 AM Note Text: HEALTH CARE LIAISON H And P SERVICE DATE: 10/14/2018 SERVICE TIME: 7:38 AM Subjective Chief complaint: LLQ pain History of present illness: Felisa Schreiber is a 28 year old P: 3Caucasian female who I am seeing for admission on Sunday through ER for suspected PID. Her pain started 4 days prior to ER visit on Sunday and it was constant. Denies any abnormal vaginal discharge or Urinary or GI problems. She was started triple antibiotics ampicillin + Gentamycin + Clindamycin. Since admission she is only on motrin, her pain is lot better. She also ceftriaxone 250 mg IM x once and Azithromycin in ER. Blood cultures, GC, chlamydia and Urine cultures : pending. WBC : 12 and Transvaginal US : possible Tubo-ovarian abscess. UCG negative. Trichomonas negative. 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 OBH ; 3 X GYNH : Last pap smear : last year normal. No h/o abnormal pap smears. Mammogram : never had. STD's none. Sexually active BC : none PMH: No past medical history on file. PSH: No past surgical history on file., SOCHx: She reports that she uses drugs, including Cocaine. reports that she currently engages in sexual activity and has had male partners. She reports using the following method of control/protection: None. FHx:No family history on file. ROS: General: negative for malaise, significant weight loss, night sweats and fever HEENT: No changes in hearing or vision, no nose bleeds or other nasal problems., No trouble swallowing Respiratory: Negative for cough, wheezing and shortness of breath Cardiovascular: Negative for chest pain, leg swelling, palpitations, orthopnea GI: Negative for abdominal discomfort, hematochezia, melena, hematemesis, change in bowel habits, diarrhea, constipation, nausea or vomiting. : Negative for dysuria, frequency and incontinence HEALTH CARE LIAISON: Negative for abnormal vaginal bleeding, abnormal vaginal discharge or breast symptoms Musculoskeletal: Negative for joint pain or swelling, back pain, and muscle pain. Psych: Negative for sleep disturbance, mood disorder and recent psychosocial stressors. Hematology: Negative for prolonged bleeding, bruising easily, and swollen nodes. Endocrine: Negative for cold or heat intolerance, polyuria, polydipsia and goiter. Neuro: Negative for lightheadedness, dizziness, tremor, gait imbalance, syncope and seizures.. Allergies: Patient has no known allergies. Meds: Current hospital medications: clindamycin iv piggyback 900 mg in D5W 50 mL (CLEOCIN) 900 mg INTRAVENOUS q 8 H ampicillin 2 g in NaCl 0.9% 100 mL MB+ 2 g INTRAVENOUS q 6 H ibuprofen 600 mg tab(s) (MOTRIN) 600 mg ORAL q 6 H PRN Objective PHYSICAL EXAM Patient Vitals for the past 24 hrs: BP Temp Temp src Pulse Resp SpO2 10/14/18 0600 101/56 36.1 ?C (97 ?F) Oral 74 18 100 % 10/13/18 2118 109/59 36.7 ?C (98 ?F) Oral 84 18 99 % 10/13/18 1200 105/60 36.6 ?C (97.9 ?F) Oral 85 16 100 % General: Patient is a well-developed, well-nourished, female in no acute distress. HEENT: Atraumatic and normocephalic. Extraocular muscles intact. Pupils are equal, round, and reactive to light and accommodation. Sclerae are non-injected, non-icteric. Nasal passages are patent. Throat is without exudate, erythema or tonsillar enlargement. Neck: Supple, without adenopathy or thyromegaly. Breasts: Without skin dimpling, nipple discharge or appreciated masses. Abdomen: Benign except for mild LLQ tenderness , no guarding or rigidity , no rebound, no guarding, no hepatosplenomegaly. 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 Continue triple antibiotics ampicillin + gentamycin and clindamycin 2. Will folow up with cultures 3. Repeat CBC today AM 4. Possible discharge today PM SIGNATURE: Mariajose Edmondson MD PATIENT NAME: Felisa Schreiber DATE: October 14, 2018 TIME: 7:37 AM [facility] NURSING PROGon 10-14-2018 Protein mass conc HNO ID: [id number] Author: Carol (Rn) KENIA Gonzalez Service: (none) Author Type: Registered Nurse Type: Nursing Progress Note Filed: 10/14/2018 6:30 PM Note Text: Nursing Progress Note Patient Name: Felisa Schreiber Patient Location: [place] [id number] -045* Daily Note: 0800: Assumed care of pt. AOx3. C/o left lower quad pain, gets Motrin PRN. Assessment as charted. Will continue to monitor. Will continue to monitor. Call light within reach. 1800: IVL removed. Given prescriptions and discharge instructions. 1817: Discharged home ambulatory. Pt escorted by this RN to ED. She called for her ride and will be picked up in ED. This note was completed by: Carol Gonzalez RN [facility] PLAN OF CAREon 10-14-2018 PLAN OF CARE HNO ID: [id number] Author: Babs Lu (Inbound Ingredient Logistics Specialist) Service: (none) Author Type: Ladle Repairer Type: Plan of Care Filed: 10/14/2018 1:23 PM Note Text: HAND EDGER BEDSIDE DELIVERY SURVEY 1. Patient to use [facility] Bedside Delivery - YES 2. If fax, patient would like us to fax prescriptions to Pharmacy of choice a. Pharmacy: b. Location: c. Phone: 3. Insurance card on file - YES 4. Credit card for payment - N/A No prescriptions yet. Please page upon discharge. [facility] CASE MGT INIT [facility]ES[facility]: [id number] Author: Prince (Rn) KENIA Sargent Service: Care Management Author Type: Registered Nurse Type: Care Mgt Initial Assessment Filed: 10/13/2018 9:02 AM Note Text: CARE MANAGEMENT: ASSESSMENT AND DISCHARGE PLAN SERVICE DATE: 10/13/2018 SERVICE TIME: 0845 PRIMARY CARE PHYSICIAN: No primary care provider on file. Phone: None ADMISSION STATUS: Observation Needs Prior to Discharge: None MEDICAL: Patient/Representati ve Stated Goals: To have reduction in symptoms To return home to life as it was Health Insurance: [place] - Health Issues Impacting Discharge Plan: ovarian abcess Last Admission Date: none Is this Within the Past 30 days? No Advance Directive: Current Advance Directive: None Carpenter Attempted to Assist with AD Completion: Yes Action: Patient Unwilling Health Literacy: 1. How often do you need to have someone help you when you read instructions, pamphlets, or other written material from your doctor or pharmacy? Never - 1 2. How confident are you filling out medical forms by yourself? Extremely - 1 If Patient scores > 3 on either question, the following interventions were put into place: Patient did not score > 3 FUNCTIONAL AND COGNITIVE/BEHAVIORAL PRIOR TO ADMISSION: Baseline Mental Status: Alert AND Oriented, Person, Place , Time and Situation Functional Status: Independent Does Patient Currently Receive Any Community Services or Home Care? None Equipment Prior to Admission: None Has the Patient Been in a Retirement Facility in the Past 30 days? No SOCIAL: Living Arrangement: Home Lives With: Mother and however currently residing [facility] Financial Resources: Unemployed Primary Contact: No emergency contact information on file. Supportive: Yes Other Important Patient Contacts: None Caregiver Assessment: Caregiver is ready, willing and able to meet the patient's needs as recommended by the inter-professional team? No Caregiver Needed Patient's transition needs and plan for meeting these needs: return to rehab Does the patient have an acute stroke diagnosis, or has the patient had a stroke during this admission? No Medication Adherence: I am convinced of the importance of my prescription medication: Agree completely - 0 I worry that my prescription medication will do more harm than good to me Disagree completely - 0 I feel financially burdened by my [id number] expenses for my prescription medication: Disagree completely - 0 Patient is categorized as low risk < 2 Are you interested in bedside delivery of your medications? No Food Concerns: In the Last Month, Have You had Trouble Getting Food? No trouble getting food During the Last Month, Have You Worried Whether Your Food Would Run Out Before You Had Enough Money to Buy More? No Is the Patient Psychosocially Complex? Yes, refer to Social Work. ASSESSMENT AND PLAN: Medical Needs: None Psychosocial Needs: cocaine abuse- declined to discuss other than being in tx with [facility] [phone] with plans to return once cleared FREEDOM OF CHOICE EXPLAINED: Yes 10/13/18-pt Preference: return to rehab POTENTIAL TRANSITION PLANS Rehab Facility Met with pt at bedside. 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 From [facility] [phone] with plans to return once cleared . Provided [facility] Choice and [facility] information. Received checklist How to Best Manage Your Health. No concerns expressed at this time. SIGNATURE: Prince Sargent RN PATIENT NAME: Felisa Schreiber DATE: October 13, 2018 TIME: 8:57 AM PAGER/CONTACT #: [phone] [facility] CBCon 10-13-2018 Absolute nRBC <0.01 Normal <0.01 [facility] Comment on above: Performed By: #### C BC, CMP ####[address] [place] [phone] Erythrocyte distribution width Ratio (RBC) 12.0 % Normal 11.5-15.0 [facility] Comment on above: Performed By: #### C BC, CMP ####[address] [place] [phone] Hematocrit Volume Fraction (Bld) 39.9 % Normal 36.0-46.0 [facility] Comment on above: Performed By: #### C BC, CMP ####[address] [place] [phone] Hemoglobin mass conc (Bld) 13.2 g/dL Normal 11.5-15.5 [facility] Comment on above: Performed By: #### C BC, CMP ####[address] [place] [phone] MCH Entitic mass (RBC) 30.2 pG Normal 26.0-34.0 [facility] Comment on above: Performed By: #### C BC, CMP ####[address] [place] [phone] MCHC mass conc (RBC) 33.1 g/dL Normal 30.5-36.0 [facility] Comment on above: Performed By: #### C BC, CMP ####[address] [place] [phone] MCV Entitic volume (RBC) 91.3 fL Normal 80.0-100.0 [facility] Comment on above: Performed By: #### C BC, CMP ####[address] [place]., [place] [phone] Platelet mean volume Entitic volume (Bld) 11.6 fL Normal 9.0-12.7 [facility] Comment on above: Performed By: #### C BC, CMP ####[address] [place]., [place] [phone] Platelets #/vol (Bld) 304 10*3/uL Normal 150-400 [facility] Comment on above: Performed By: #### C BC, CMP ####[address] [place]., [place] [phone] RBC #/vol (Bld) 4.37 10*6/uL Normal 3.90-5.20 [facility] Comment on above: Performed By: #### C BC, CMP ####[address] [place]., [place] [phone] WBC #/vol (Bld) 9.93 10*3/uL Normal 3.70-11.00 [facility] Comment on above: Performed By: #### C BC, CMP ####[address] [place] [phone] Comp Metabolic Panelon 10-13 Albumin mass conc 4.5 g/dL Normal 4.0-4.9 [facility] Comment on above: Performed By: #### C BC, CMP ####[address] [place]., [place] [phone] ALP enzyme act/vol 66 U/L Normal 34-123 [facility] Comment on above: Performed By: #### C BC, CMP ####[address] [place]., [place] [phone] ALT enzyme act/vol 14 U/L Normal 0-33 [facility] Comment on above: Performed By: #### C BC, CMP ####[address] [place]., [place] [phone] Anion gap molar conc 13 mmol/L Normal 0-15 [facility] Comment on above: Performed By: #### C BC, CMP ####[address] [place]., [place] [phone] AST enzyme act/vol 14 U/L Normal 0-32 [facility] Comment on above: Performed By: #### C BC, CMP ####[address] [place]., [place] [phone] Bilirubin mass conc 0.5 mg/dL Normal 0.2-1.3 [facility] Comment on above: Performed By: #### C BC, CMP ####[address] [place]., [place] [phone] Calcium mass conc 9.8 mg/dL Normal 8.5-10.2 [facility] Comment on above: Performed By: #### C BC, CMP ####[address] [place] [phone] Chloride molar conc 103 mmol/L Normal 98-107 [facility] Comment on above: Performed By: #### C BC, CMP ####[address] [place]., [place] [phone] CO2 molar conc 26 mmol/L Normal 22-29 [facility] Comment on above: Performed By: #### C BC, CMP ####[address] [place]., [place] [phone] Creatinine mass conc 0.67 mg/dL Normal 0.51-0.95 [facility] Comment on above: Performed By: #### C BC, CMP ####[address] [place]., [place] [phone] eGFR- Amer. >60 Normal >60 [facility] Comment on above: Performed By: #### C BC, CMP ####[address] [place] [phone] GFR/1.73 sq M predicted among non-blacks MDRD vol rate/area (S/P/Bld) mL/min/{1.73_m2} Normal >60 [facility] Comment on above: Result Comment: eGFR (Estimated GFR) Units of measure: mL/min/1.73 meters squared eGFR is derived from the 4 variable MDRD equation for glomerular filtration rate (GFR) based on a stable serum creatinine, gender, and age. According to KDOQI guidelines, an eGFR <60 mL/min/1.73m2 is sufficient to diagnose a patient with chronic kidney disease. Performed By: #### C BC, CMP ####[address] [place]., [place] [phone] Glucose mass conc 75 mg/dL Normal 74-99 [facility] Comment on above: Performed By: #### C BC, CMP ####[address] [place]., [place] [phone] Potassium molar conc 4.2 mmol/L Normal 3.4-4.5 [facility] Comment on above: Performed By: #### C BC, CMP ####[address] [place]., [place] [phone] Protein mass conc 8.4 g/dL Normal 6.6-8.7 [facility] Comment on above: Performed By: #### C BC, CMP ####[address] [place]., [place] [phone] Sodium molar conc 142 mmol/L Normal 136-144 [facility] Comment on above: Performed By: #### C BC, CMP ####[address] [place]., [place] [phone] Urea nitrogen mass conc 13 mg/dL Normal 6-20 [facility] Comment on above: Performed By: #### C BC, CMP ####[facility] [facility]., [place] [phone] NURSING PROGon 10-13-2018 Protein mass conc HNO ID: [id number] Author: Reina John (Rn) KENIA Encarnacion Service: (none) Author Type: Registered Nurse Type: Nursing Progress Note Filed: 10/14/2018 8:21 AM Note Text: Nursing Progress Note Patient Name: Felisa Schreiber Patient Location: [place] [address]/[address]* Daily Note:1930 Patient resting in bed,alert and oriented x 3. Independent. 2200 Medicated for pain. 0000 Sleeping,no signs of distress. [address] Edmondson.CBC with diff ordered. This note was completed by: Reina Encarnacion RN Normal [facility] Basic Metabolic Panlon 10-12 Anion gap molar conc 12 mmol/L Normal 0-15 [facility] Comment on above: Performed By: #### C BCDIF, BMP ####[facility] [facility]., [place] [phone] Calcium mass conc 10.1 mg/dL Normal 8.5-10.2 [facility] Comment on above: Performed By: #### C BCDIF, BMP ####[facility] [facility]., [place] [phone] Chloride molar conc 103 mmol/L Normal 98-107 [facility] Comment on above: Performed By: #### C BCDIF, BMP ####[facility] [facility]., [place] [phone] CO2 molar conc 24 mmol/L Normal 22-29 [facility] Comment on above: Performed By: #### C BCDIF, BMP ####[address] [place] [phone] Creatinine mass conc 0.70 mg/dL Normal 0.51-0.95 [facility] Comment on above: Performed By: #### C BCDIF, BMP ####[address] [place] [phone] eGFR- Amer. >60 Normal >60 [facility] Comment on above: Performed By: #### C BCDIF, BMP ####[address] [place] [phone] GFR/1.73 sq M predicted among non-blacks MDRD vol rate/area (S/P/Bld) mL/min/{1.73_m2} Normal >60 [facility] Comment on above: Result Comment: eGFR (Estimated GFR) Units of measure: mL/min/1.73 meters squared eGFR is derived from the 4 variable MDRD equation for glomerular filtration rate (GFR) based on a stable serum creatinine, gender, and age. According to KDOQI guidelines, an eGFR <60 mL/min/1.73m2 is sufficient to diagnose a patient with chronic kidney disease. Performed By: #### C BCDIF, BMP ####[address] [place] [phone] Glucose mass conc 85 mg/dL Normal 74-99 [facility] Comment on above: Performed By: #### C BCDIF, BMP ####[address] [place] [phone] Potassium molar conc 4.5 mmol/L Normal 3.4-4.5 [facility] Comment on above: Performed By: #### C BCDIF, BMP ####[address] [place] [phone] Sodium molar conc 139 mmol/L Normal 136-144 [facility] Comment on above: Performed By: #### C BCDIF, BMP ####[address] [place] [phone] Urea nitrogen mass conc 11 mg/dL Normal 6-20 [facility] Comment on above: Performed By: #### C BCDIF, BMP ####[address] [place] [phone] Blood Cultureon 10-12-2018 Bacteria identified Cx Nom (Bld) Sp. Request/Comment: - The blood culture bottles are underfilled. Adding volume lower or higher than the 8 to 10 mL per bottle, which is the manufacturers recommended volume, may adversely affect the recovery and/or detection of organisms. 10.2 CC Culture Result - No growth 5 days Normal [facility] Comment on above: Performed By: #### B LCUL ####[place] [phone] Bacteria identified Cx Nom (Bld) Sp. Request/Comment: - The blood culture bottles are underfilled. Adding volume lower or higher than the 8 to 10 mL per bottle, which is the manufacturers recommended volume, may adversely affect the recovery and/or detection of organisms. 4.7 CC Culture Result - No growth 5 days [facility] Comment on above: Performed By: #### B LCUL ####[place] [phone] CBC and Differentialon 10-12 Abs Baso 0.06 k/uL Normal <0.11 [facility] Comment on above: Performed By: #### C BCDIF, BMP ####[address] [place] [phone] Abs [place] 0.82 k/uL Normal <0.87 [facility] Comment on above: Performed By: #### C BCDIF, BMP ####[address] [place] [phone] Abs Neut 9.83 k/uL High 1.45-7.50 [facility] Comment on above: Performed By: #### C BCCONNER, BMP ####[address] [phone] Absolute nRBC <0.01 Normal <0.01 [facility] Comment on above: Performed By: #### C BCCYRUSF, BMP ####[address] [phone] Basophils/100 WBC (Bld) 0.5 % Normal [facility] Comment on above: Performed By: #### C BCCONNER, BMP ####[address] [phone] DTYPE Auto Diff Normal [facility] Comment on above: Performed By: #### C BCCYRUSF, BMP ####[address] [place] [phone] Eosinophils #/vol (Bld) 0.13 10*3/uL Normal <0.46 [facility] Comment on above: Performed By: #### C BCCONNER, BMP ####[address] [phone] Eosinophils/100 WBC (Bld) 1.0 % Normal [facility] Comment on above: Performed By: #### C BCCYRUSF, BMP ####[address] [phone] Erythrocyte distribution width Ratio (RBC) 11.9 % Normal 11.5-15.0 [facility] Comment on above: Performed By: #### C BCCYRUSF, BMP ####[address] [phone] Hematocrit Volume Fraction (Bld) 40.3 % Normal 36.0-46.0 [facility] Comment on above: Performed By: #### C NATACHADIF, BMP ####[address] [phone] Hemoglobin mass conc (Bld) 13.1 g/dL Normal 11.5-15.5 [facility] Comment on above: Performed By: #### C BCDIF, BMP ####[address] [place] [phone] Lymphocytes #/vol (Bld) 1.82 10*3/uL Normal 1.00-4.00 [facility] Comment on above: Performed By: #### C BCDIF, BMP ####[address] [phone] Lymphocytes/100 WBC (Bld) 14.4 % Normal [facility] Comment on above: Performed By: #### C BCDIF, BMP ####[address] [phone] MCH Entitic mass (RBC) 29.8 pG Normal 26.0-34.0 [facility] Comment on above: Performed By: #### C BCDIF, BMP ####[address] [phone] MCHC mass conc (RBC) 32.5 g/dL Normal 30.5-36.0 [facility] Comment on above: Performed By: #### C BCDIF, BMP ####[address] [phone] MCV Entitic volume (RBC) 91.6 fL Normal 80.0-100.0 [facility] Comment on above: Performed By: #### C BCDIF, BMP ####[address] [phone] Monocytes/100 WBC (Bld) 6.5 % Normal [facility] Comment on above: Performed By: #### C BCDIF, BMP ####[address] [place] [phone] Neutrophils/100 WBC (Bld) 77.6 % Normal [facility] Comment on above: Performed By: #### C BCDIF, BMP ####[address] [place] [phone] NRBCs 0.0 /100 WBC Normal 0 [facility] Comment on above: Performed By: #### C BCCYRUSF, BMP ####[address] [place] [phone] Platelet mean volume Entitic volume (Bld) 12.7 fL Normal 9.0-12.7 [facility] Comment on above: Performed By: #### C BCCYRUSF, BMP ####[address] [phone] Platelets #/vol (Bld) 269 10*3/uL Normal 150-400 [facility] Comment on above: Result Comment[facility] Performed By: #### C JESSICA, BMP ####[address] [place] [phone] RBC #/vol (Bld) 4.40 10*6/uL Normal 3.90-5.20 [facility] Comment on above: Performed By: #### C BCCYRUSF, BMP ####[address] [place] [phone] WBC #/vol (Bld) 12.66 10*3/uL High 3.70-11.00 [facility] Comment on above: Performed By: #### C BCCONNER, BMP ####[address] [place] [phone] ED NOTEon 10-12-2018 ED NOTE HNO ID: [id number] Author: Dahlia SunPeri Montes De Oca RN Service: (none) Author Type: Registered Nurse Type: ED Notes Filed: 10/12/2018 9:11 PM Note Text: Report given to Arash 440-1 [facility] ED NOTE HNO ID: [id number] Author: Dahlia GrullonRnPeri Montes De Oca RN Service: (none) Author Type: Registered Nurse Type: ED Notes Filed: 10/12/2018 9:11 PM Note Text: Pharmacy sent Clindamycin down to the ED and stated to start that first. [facility] ED NOTE HNO ID: [id number] Author: Dahlia GrullonRnPeri Montes De Oca RN Service: (none) Author Type: Registered Nurse Type: ED Notes Filed: 10/12/2018 5:37 PM Note Text: Pt. To ultrasound. [facility] ED NOTE HNO ID: [id number] Author: Dahlia Montes De Oca RN Service: (none) Author Type: Registered Nurse Type: ED Notes Filed: 10/12/2018 5:38 PM Note Text: PA at bedside performing pelvic exam. [facility] ED NOTE HNO ID: [id number] Author: Carey Hernández LPN Service: (none) Author Type: LICENSED NURSE Type: ED Notes Filed: 10/12/2018 4:58 PM Note Text: Annika PALUMBO at bedside assessing pt. [facility] ED NOTE HNO ID: [id number] Author: Carey Hernández LPN Service: (none) Author Type: LICENSED NURSE Type: ED Notes Filed: 10/12/2018 4:58 PM Note Text: Clean catch urine specimen obtained and sent. [facility] ED NOTE HNO ID: [id number] Author: Carey Hernández LPN Service: (none) Author Type: LICENSED NURSE Type: ED Notes Filed: 10/12/2018 4:49 PM Note Text: Pt. Assisted to restroom in attempt to provide urine specimen. Pt. Having unprotected sex, states chance of . [facility] ED NOTE HNO ID: [id number] Author: Carey Hernández LPN Service: (none) Author Type: LICENSED NURSE Type: ED Notes Filed: 10/12/2018 4:50 PM Note Text: Pt. Arrived via EMS from [facility] for Left Lower Quadrant Abdominal Pain that started 10/08. Pt. States feels nauseous at times. Pt. States received ibproufen yesterday at midnight with no relief. States urinating more frequently, pain increases prior to using bathroom and decreases afterwards. Pt. States no vomiting. Pt. Denies SOB, chest pain. Pt. Ambulated from wheelchair to bed. Pt. AXOx3 and cooperative. Plan of care -Monitor Patient's Vital Signs for changes in condition -Monitor patient for changes in pain -Maintain patient safety and privacy -Provide comfort measures -Call light in place Siderails up, bed in locked and low position [facility] ED NOTE HNO ID: [id number] Author: Last (Medic) Mari Service: (none) Author Type: Nocturnist Physician and Ladle Repairer Type: ED Notes Filed: 10/12/2018 4:42 PM Note Text: Bed: ED-20 Expected date: Expected time: Means of arrival: Comments: [facility] ED PROV NOTEon 10-12-2018 Protein mass conc HNO ID: [id number] Author: Tarsha Jim Service: Emergency Medicine Author Type: Physician Software Installer Type: ED Provider Notes Filed: 10/13/2018 3:12 PM Note Text: ED Provider Note Patient Name: Felisa Schreiber SERVICE DATE: 10/12/18 History Patient presents with: Abdominal Pain Patient comes in with complaints of left lower pelvic pain. She states this started 4 days ago. The pain is constant. She says when she has a full bladder this pain seems to be worse. When she urinates the pain is better but still there. She denies any dysuria. She is urinating a full amount. She is having some vaginal discharge for the last few days. She does have unprotected sex with her fiance she's been with for a while, and he's never given her an STD. She denies any nausea vomiting diarrhea. She said she was a little dizzy yesterday no fever or chills. No change in her appetite. Eating does not affect the pain. She says she took some ibuprofen yesterday. She is in drug treatment at [facility]. She has been there since the . His never had pain like this before. Denies any back pain. No family history of kidney stones no history of kidney stones for her. Nothing else makes the pain worse. Her last period was the beginning of September. No past medical history on file. None/ has had 3 vaginal deliveries No past surgical history on file. none No family history on file. Social History Social History Main Topics - Smoking status: Not on file - Smokeless tobacco: Not on file Comment: past smoker - Alcohol use Not on file - Drug use: Yes Types: Cocaine Comment: past history of cocaine - Sexual activity: Yes Partners: Male control/ protection: None ALLERGIES No Known Allergies Review of Systems Constitutional: Negative for appetite change and fever. HENT: Negative. Respiratory: Negative. Cardiovascular: Negative. Gastrointestinal: Positive for abdominal pain. Negative for diarrhea, nausea and vomiting. Genitourinary: Positive for pelvic pain and vaginal discharge. Negative for difficulty urinating and flank pain. Musculoskeletal: Negative. Skin: Negative. Neurological: Negative. Psychiatric/Behavior al: Negative. Physical Exam BP 97/57 Pulse 87 Temp (Src) 97.5 (Oral) Resp 18 Ht 5' 1 (1.55m) Wt 136 lb (61.7kg) SpO2 100% LMP 09/26/2018 BMI 25.71 kg/(m2). Physical Exam Constitutional: She appears well-developed and well-nourished. No distress. Patient appears in no acute distress she does not look toxic HENT: Head: Normocephalic and atraumatic. Mouth/Throat: Oropharynx is clear and moist. Eyes: Pupils are equal, round, and reactive to light. Conjunctivae and EOM are normal. Neck: Normal range of motion. Neck supple. Cardiovascular: Normal rate, regular rhythm and normal heart sounds. Pulmonary/Chest: Effort normal and breath sounds normal. Abdominal: Soft. There is no tenderness. Abdomen is benign on exam Genitourinary: Pelvic exam was performed with patient supine. There is no rash or tenderness on the right labia. There is no rash or tenderness on the left labia. Uterus is tender. Cervix exhibits motion tenderness and discharge. Cervix exhibits no friability. Right adnexum displays no mass, no tenderness and no fullness. Left adnexum displays tenderness. Left adnexum displays no mass and no fullness. Vaginal discharge found. Nursing note and vitals reviewed. Diagnostic Testing Urine test is negative, Trichomonas prep is negative urinalysis bacteria is present otherwise unremarkable gonorrhea chlamydia cultures are sent Pelvic ultrasound read by the radiologist IMPRESSION: No evidence of ovarian torsion. ?Suspect left tubo-ovarian abscess.Left ovary: 3.4 x 1.9 x 1.3 cm ?Normal sonographic appearance. ? Normal blood flow. ?Adjacent to the left ovary there is tubular fluid containing 6.3 x 1.7 x 1.3 centimeter structure. ? ?Although there is no hyperemia the giles are thick and irregular which is concerning for tubo-ovarian abscess. Pelvis free fluid: Small free fluid in the cul-de-sac CBC is reviewed white count elevated 12.66 otherwise within normal limits urine was sent for culture her chemistries are reviewed and within normal limits ED Labs Ordered and Reviewed URINALYSIS WITH MICROSCOPIC (AK,AV,EU,FV,HL,FRANCOIS,M M,SP) - Abnormal; Notable for the following: Result Value Ref Range Clarity Cloudy (*) Clear Bacteria Present (*) 0 /HPF Crystal SEE COMMENT (*) 0 /HPF All other components within normal limits CBC + AUTO DIFF (AK,AV,EU,FV,HL,FRANCOIS,M M,SP) - Abnormal; Notable for the following: WBC 12.66 (*) 3.70 - 11.00 k/uL Abs Neut (ANC) 9.83 (*) 1.45 - 7.50 k/uL All other components within normal limits HCG URINE - ED(POC) - Normal BASIC METABOLIC PANEL (AK,AV,EU,FV,HL,FRANCOIS,M M,SP) RESERVE BLOOD SPECIMEN GC/CHLAMYDIA DNA DETECTION (AK,AV,EU,FV,HL,FRANCOIS,M M,SP) TRICHOMONAS PREP (AK,AV,EU,FV,HL,FRANCOIS,M M,SP) URINE CULTURE (AK,AV,EU,FV,HL,FRANCOIS,M M,SP) Procedures ED Course / Clinical Impression Patient is given Toradol 30 mg IMIs also given a nicotine patch Clinical Impressions as of Oct 13 1509 Tubo-ovarian abscess Leukocytosis, unspecified type MDM / Disposition / Plan As soon as I got the ultrasound report I spoke to Dr. Smith DIRECTOR DISTRIBUTION on-call I discussed the patient and was decided that once her white blood cell count came back I would give her a call back so we can decide if the patient needed inpatient treatment or outpatient treatment the patient does not look toxic her vital signs are normal she is afebrile. In waiting for the CBC did come back the doctor called back and said go ahead and give her Rocephin 250 IM and Zithromax thousand milligrams by mouth and I will call her back on her cell phone as soon as I get the white count I called the physician back to tell her that the white count was 12.66 because it's elevated she decided to admit her should like me to give her gentamicin and ampicillin and clindamycin. I confirmed the dosages with the pharmacist. Patient is comfortable with staying. I relayed to the DIRECTOR DISTRIBUTION that the patient should not be getting narcotics that she is in drug treatment the patient does not want any. Patient states she is more comfortable with the Toradol she received The patient was ADMITTED TO: Regular nursing floor. Condition at time of disposition: stable SIGNATURE: JR Hernandez) Diandra 10/12/18 211 Mitesh Shelton 10/12/18 2241 Tarsha Toro) Diandra 10/13/18 1512 [facility] GC/Chlamydia Amplifon 2018 Chlamydia Amplif Positive Critically [facility] Comment on above: Result Comment: In l ow prevalence populations, the likelihood of a false positive may be higher than a true positive. Retesting by another method may be appropriate for patients who lack risk factors or clinical signs and symptoms consistent with infection. Performed By: #### G CCT ####[address] [phone] [address] [place], [place] [phone] GC Amplification Negative Normal [facility] Comment on above: Performed By: #### G CCT ####[place] [id number] [place], [place] [phone] [address] [place], [place] [phone] GC/Chlam Amp Source Vaginal Normal [facility] Comment on above: Performed By: #### G CCT ####[facility] [place], [place] [phone] County [facility] [place], [place] [phone] Trichomonas Prepon 9 Trichomonas Prep Smear Result - Negative for Trichomonas vaginalis antigen Normal [facility] Comment on above: Performed By: #### T RICHO #### [facility] [address] [facility] [place] [address] US DOPPLER COMPLETEon 2018 US DOPPLER COMPLETE * * *Final Report* * * DATE OF EXAM: Oct 12 2018 6:20PM MMU [id number] - US DOPPLER COMPLETE / PROCEDURE REASON: Torsion of ovary and ovarian pedicle * * * * Physician Interpretation * * * * EXAMINATION: TRANSVAGINAL AND LIMITED TRANSABDOMINAL PELVIC ULTRASOUND CLINICAL HISTORY: Left pelvic pain and vaginal discharge for 4 days. TECHNIQUE: Sonography of the pelvis was performed by transvaginal and transabdominal (limited) techniques. Images were obtained and stored in a permanent archive. MQ: UFP_1 COMPARISON: None RESULT: Uterus size: 8.6 x 3.8 x 6.4 cm -Orientation: Anteverted -Myometrium: Normal sonographic appearance. -Endometrial echo complex: 0.7 cm -Cervix: normal Right ovary: 2.5 x 1.5 x 3.1 cm Normal sonographic appearance. 2 small cystic structures largest of which measures approximately 1 cm are or follicles. The blood flow is normal. Left ovary: 3.4 x 1.9 x 1.3 cm Normal sonographic appearance. Normal blood flow. Adjacent to the left ovary there is tubular fluid containing 6.3 x 1.7 x 1.3 centimeter structure. Although there is no hyperemia the giles are thick and irregular which is concerning for tubo-ovarian abscess. Pelvis free fluid: Small free fluid in the cul-de-sac IMPRESSION: No evidence of ovarian torsion. Suspect left tubo-ovarian abscess. Telegraph And Teletype Operator: CATRACHITA Transcribe Date/Time: Oct 12 2018 6:27P Dictated by : KUN DRUMMOND MD This examination was interpreted and the report reviewed and electronically signed by: KUN DRUMMOND MD on Oct 12 2018 6:46PM EST [id number] CN [facility] US FEMALE PELVIS TRANSABD LT Don 10-12-2018 US FEMALE PELVIS TRANSABD LTD * * *Final Report* * * DATE OF EXAM: Oct 12 2018 6:20PM MMU [id number] - US FEMALE PELVIS TRANSABD LTD / PROCEDURE REASON: Torsion of ovary and ovarian pedicle * * * * Physician Interpretation * * * * EXAMINATION: TRANSVAGINAL AND LIMITED TRANSABDOMINAL PELVIC ULTRASOUND CLINICAL HISTORY: Left pelvic pain and vaginal discharge for 4 days. TECHNIQUE: Sonography of the pelvis was performed by transvaginal and transabdominal (limited) techniques. Images were obtained and stored in a permanent archive. MQ: UFP_1 COMPARISON: None RESULT: Uterus size: 8.6 x 3.8 x 6.4 cm -Orientation: Anteverted -Myometrium: Normal sonographic appearance. -Endometrial echo complex: 0.7 cm -Cervix: normal Right ovary: 2.5 x 1.5 x 3.1 cm Normal sonographic appearance. 2 small cystic structures largest of which measures approximately 1 cm are or follicles. The blood flow is normal. Left ovary: 3.4 x 1.9 x 1.3 cm Normal sonographic appearance. Normal blood flow. Adjacent to the left ovary there is tubular fluid containing 6.3 x 1.7 x 1.3 centimeter structure. Although there is no hyperemia the giles are thick and irregular which is concerning for tubo-ovarian abscess. Pelvis free fluid: Small free fluid in the cul-de-sac IMPRESSION: No evidence of ovarian torsion. Suspect left tubo-ovarian abscess. Telegraph And Teletype Operator: PSCB Transcribe Date/Time: Oct 12 2018 6:27P Dictated by : KUN DRUMMOND MD This examination was interpreted and the report reviewed and electronically signed by: KUN DRUMMOND MD on Oct 12 2018 6:46PM EST [id number] [facility] FEMALE PELVIS TRANSVAGon 10-12-2018 US FEMALE PELVIS TRANSVAG * * *Final Report* * * DATE OF EXAM: Oct 12 2018 6:20PM MMU [id number] - US FEMALE PELVIS TRANSVAG / PROCEDURE REASON: Torsion of ovary and ovarian pedicle * * * * Physician Interpretation * * * * EXAMINATION: TRANSVAGINAL AND LIMITED TRANSABDOMINAL PELVIC ULTRASOUND CLINICAL HISTORY: Left pelvic pain and vaginal discharge for 4 days. TECHNIQUE: Sonography of the pelvis was performed by transvaginal and transabdominal (limited) techniques. Images were obtained and stored in a permanent archive. MQ: UFP_1 COMPARISON: None RESULT: Uterus size: 8.6 x 3.8 x 6.4 cm -Orientation: Anteverted -Myometrium: Normal sonographic appearance. -Endometrial echo complex: 0.7 cm -Cervix: normal Right ovary: 2.5 x 1.5 x 3.1 cm Normal sonographic appearance. 2 small cystic structures largest of which measures approximately 1 cm are or follicles. The blood flow is normal. Left ovary: 3.4 x 1.9 x 1.3 cm Normal sonographic appearance. Normal blood flow. Adjacent to the left ovary there is tubular fluid containing 6.3 x 1.7 x 1.3 centimeter structure. Although there is no hyperemia the giles are thick and irregular which is concerning for tubo-ovarian abscess. Pelvis free fluid: Small free fluid in the cul-de-sac IMPRESSION: No evidence of ovarian torsion. Suspect left tubo-ovarian abscess. Telegraph And Teletype Operator: [facility] Transcribe Date/Time: Oct 12 2018 6:27P Dictated by : KUN DRUMMOND MD This examination was interpreted and the report reviewed and electronically signed by: KUN DRUMMOND MD on Oct 12 2018 6:46PM EST [id number] CN Normal [facility] Urinalysis with Microscopico n 10-12-2018 Bacteria LM.HPF #/area (Urine sed) Present Critically abnormal 0 [facility] Comment on above: Performed By: #### U AWMIC #### [facility] [address] [place] [address] Bilirubin, Urine Negative Normal Negative [facility] Comment on above: Performed By: #### U AWMIC #### [facility] [address] [place] [address] Cast SEE COMMENT Normal 0 [facility] Comment on above: Result Comment: 0 Performed By: #### U AWMIC #### [facility] [id number] [place] [address] [place] [address] Clarity Nom (U) Cloudy Critically abnormal Clear [facility] Comment on above: Performed By: #### U AWMIC #### [address] [place] [address] Color Nom (U) Yellow Normal Yellow [facility] Comment on above: Performed By: #### U AWMIC #### [address] [place] [address] Crystals LM Nom (Urine sed) SEE COMMENT Critically abnormal 0 [facility] Comment on above: Result Comment: Many Amorphous Performed By: #### U AWMIC #### [address] [place] [address] Epithelial cells LM.HPF #/area (Urine sed) SEE COMMENT Normal [facility] Comment on above: Result Comment: Mode rate Performed By: #### U AWMIC #### [address] [place] [address] Glucose Ql (U) Negative Normal [facility] Comment on above: Performed By: #### U AWMIC #### [address] [place] [address] Hemoglobin/Blood,Ur Negative Normal [facility] Comment on above: Performed By: #### U AWMIC #### [address] [place] [address] Ketones Ql (U) Negative Normal Negative [facility] Comment on above: Performed By: #### U AWMIC #### [address] [place] [address] Leukest Negative Normal [facility] Comment on above: Performed By: #### U AWMIC #### [address] [place] [address] Nitrite Ql (U) Negative Normal [facility] Comment on above: Performed By: #### U AWMIC #### [facility] [address] [facility] [address] [place] [address] pH (Bld) 8.0 Normal 4.6-8.0 [facility] Comment on above: Performed By: #### U AWMIC #### [facility] [address] [facility] [address] [place] [address] Protein mass conc (U) Negative Normal Negative [facility] Comment on above: Performed By: #### U AWMIC #### [facility] [address] [place] [address] RBC #/vol (U) 0-3 Normal 0-3 [facility] Comment on above: Performed By: #### U AWMIC #### [facility] [address] [facility] [address] [place] [address] Specific [place], Ur 1.020 Normal 1.001-1.035 [facility] Comment on above: Performed By: #### U AWMIC #### [facility] [address] [facility] [address] [place] [address] Urobilinogen Qn (U) Normal Normal Normal [facility] Comment on above: Performed By: #### U AWMIC #### [facility] [address] [facility] [address] [place] [address] WBC #/vol (Bld) 0-5 Normal 0-5 [facility] Comment on above: Performed By: #### U AWMIC #### [facility] [address] [place] [address] Urine Cultureon 10-12-2018 Bacteria identified Cx Nom (U) Culture Result - 50,000 - <100,000 CFU/ml Escherichia coli --> ABNORMAL ALERT ORGANISM: Escherichia coli METHOD: Minimum inhibitory concentration(Vitek) Antibiotic Interp CLARISSA Status Ampicillin SUSCEPTIBLE 4 F Gentamicin SUSCEPTIBLE <=1 F Trimeth sulfameth SUSCEPTIBLE <=20 F Cefazolin SUSCEPTIBLE <=4 F CLSI breakpoints for therapy of uncomplicated UTI's due to E.coli, K.pneumoniae, and P.mirabilis were applied and may be used to predict the activity of oral agents(cefaclor, cefdinir, cefpodoxime, cefprozil, cefuroxime, cephalexin, loracarbef). Ciprofloxacin SUSCEPTIBLE 1 F Nitrofurantoin SUSCEPTIBLE <=16 F Cefepime SUSCEPTIBLE <=1 F Piperacillin/Tazobac SUSCEPTIBLE <=4 F Ampicillin Sulbact SUSCEPTIBLE <=2 F Ceftriaxone SUSCEPTIBLE <=1 F Meropenem SUSCEPTIBLE <=0.25 F Ertapenem SUSCEPTIBLE <=0.5 F [facility] Comment on above: Performed By: #### U UL ####[facility] [place], [place] [phone] Vital Signs Date Time Vital Sign Value Performing Clinician Facility 10-30-2022 13:15-0500 Body height 154.9 cm No Pcp Required [facility] 10-30-2022 13:15-0500 Body temperature 97.88 [degF] No Pcp Required [facility] 10-30-2022 13:15-0500 Diastolic blood pressure 78 mm[Hg] No Pcp Required [facility] 10-30-2022 13:15-0500 Heart rate 94 /min No Pcp Required [facility] 10-30-2022 13:15-0500 SaO2% (BldA) [Mass fraction] 95 % No Pcp Required [facility] 10-30-2022 13:15-0500 Systolic blood pressure 124 mm[Hg] No Pcp Required [facility] 07-07-2021 13:20-0400 Body height 154.9 cm No Pcp Required [facility] 07-07-2021 13:20-0400 Body temperature 98.06 [degF] No Pcp Required [facility] 07-07-2021 13:20-0400 Diastolic blood pressure 69 mm[Hg] No Pcp Required [facility] 07-07-2021 13:20-0400 Heart rate 82 /min No Pcp Required [facility] 07-07-2021 13:20-0400 Respiratory rate 16 /min No Pcp Required [facility] 07-07-2021 13:20-0400 SaO2% (BldA) [Mass fraction] 100 % No Pcp Required [facility] 07-07-2021 13:20-0400 Systolic blood pressure 109 mm[Hg] No Pcp Required [facility] 06-20-2021 12:56-0400 Body height 154.9 cm No Pcp Required [facility] 06-20-2021 12:56-0400 Body temperature 98.06 [degF] No Pcp Required [facility] 06-20-2021 12:56-0400 Diastolic blood pressure 82 mm[Hg] No Pcp Required [facility] 06-20-2021 12:56-0400 Heart rate 88 /min No Pcp Required [facility] 06-20-2021 12:56-0400 SaO2% (BldA) [Mass fraction] 98 % No Pcp Required [facility] 06-20-2021 12:56-0400 Systolic blood pressure 130 mm[Hg] No Pcp Required [facility] 05-31-2021 16:04-0400 Body height 154.9 cm No Pcp Required [facility] 05-31-2021 16:04-0400 Body temperature 97.7 [degF] No Pcp Required [facility] 05-31-2021 16:04-0400 Diastolic blood pressure 81 mm[Hg] No Pcp Required [facility] 05-31-2021 16:04-0400 Heart rate 79 /min No Pcp Required [facility] 05-31-2021 16:04-0400 Respiratory rate 16 /min No Pcp Required [facility] 05-31-2021 16:04-0400 SaO2% (BldA) [Mass fraction] 98 % No Pcp Required [facility] 05-31-2021 16:04-0400 Systolic blood pressure 123 mm[Hg] No Pcp Required [facility] 11-06-2019 16:59-0500 BMI (Body Mass Index) 26.45 kg/m2 [facility] 11-06-2019 16:59-0500 Body Temperature 97.59 [degF] [facility] 11-06-2019 16:59-0500 Body [facility] 63.5 [facility]-2019 16:59-0500 BP Diastolic 74 mm[Hg] [facility] 11-06-2019 16:59-0500 BP Systolic 114 mm[Hg] [facility] 11-06-2019 16:59-0500 Height 154.9 cm [facility] 11-06-2019 16:59-0500 Pulse (Heart Rate) 96 /min [facility] 11-06-2019 16:59-0500 Pulse Oximetry 100 % [facility] 11-06-2019 16:59-0500 Respiratory Rate 18 /min [facility] 11-04-2019 21:35-0500 Pulse (Heart Rate) 76 /min [facility] 11-04-2019 21:35-0500 Pulse Oximetry 98 % [facility] 11-04-2019 21:34-0500 BP Diastolic 81 mm[Hg] [facility] 11-04-2019 21:34-0500 BP Systolic 116 mm[Hg] [facility] 11-04-2019 18:57-0500 BMI (Body Mass Index) 26.83 kg/m2 [facility] 11-04-2019 18:57-0500 Body Temperature 98.1 [degF] [facility] 11-04-2019 18:57-0500 Body weight 64.41 kg [facility] 11-04-2019 18:57-0500 Height 154.9 cm [facility] 11-04-2019 18:57-0500 Respiratory Rate 16 /min [facility] 11-04-2019 18:12-0500 Pulse Oximetry 99 % Marty Apple [facility] 11-04-2019 18:09-0500 Body Temperature 98.1 [degF] Marty Rings [facility] 11-04-2019 18:09-0500 BP Diastolic 85 mm[Hg] Marty Rings [facility] 11-04-2019 18:09-0500 BP Systolic 129 mm[Hg] Marty Rings [facility] 11-04-2019 18:09-0500 Pulse (Heart Rate) 98 /min Marty Apple [facility] 11-04-2019 18:09-0500 Respiratory Rate 16 /min Marty Apple [facility] 10-21-2019 17:44-0500 BP Diastolic 83 mm[Hg] [facility] 10-21-2019 17:44-0500 BP Systolic 129 mm[Hg] [facility] 10-21-2019 17:41-0500 BMI (Body Mass Index) 26.45 kg/m2 [facility] 10-21-2019 17:41-0500 Body Temperature 98.01 [degF] [facility] 10-21-2019 17:41-0500 Body weight 63.5 kg [facility] 10-21-2019 17:41-0500 Height 154.9 cm [facility] 10-21-2019 17:41-0500 Pulse (Heart Rate) 98 /min [facility] 10-21-2019 17:41-0500 Pulse Oximetry 96 % [facility] 10-21-2019 17:41-0500 Respiratory Rate 16 /min [facility] 09-19-2019 16:06-0500 BMI (Body Mass Index) 26.45 kg/m2 [facility] 09-19-2019 16:06-0500 Body Temperature 97.81 [degF] [facility] 09-19-2019 16:06-0500 Body weight 63.5 kg [facility] 09-19-2019 16:06-0500 BP Diastolic 90 mm[Hg] [facility] 09-19-2019 16:06-0500 BP Systolic 125 mm[Hg] [facility] 09-19-2019 16:06-0500 Height 154.9 cm [facility] 09-19-2019 16:06-0500 Pulse (Heart Rate) 90 /min [facility] 09-19-2019 16:06-0500 Pulse Oximetry 98 % [facility] 09-19-2019 16:06-0500 Respiratory Rate 18 /min [facility] 03-07-2019 11:33-0400 BMI (Body Mass Index) 25.7 kg/m2 [facility] 03-07-2019 11:33-0400 Body Temperature 98.2 [degF] [facility] 03-07-2019 11:33-0400 BP Diastolic 66 mm[Hg] [facility] 03-07-2019 11:33-0400 BP Systolic 123 mm[Hg] [facility] 03-07-2019 11:33-0400 Height 154.9 cm [facility] 03-07-2019 11:33-0400 Pulse (Heart Rate) 94 /min [facility] 03-07-2019 11:33-0400 Pulse Oximetry 98 % [facility] 03-07-2019 11:33-0400 Respiratory Rate 16 /min [facility] 03-07-2019 11:33-0400 Weight 61.69 kg [facility] Encounters Encounter Date Encounter Type Care Provider Facility Start: 06-11-2024 End: 06-12-2024 Emergency department patient visit PHYSICIAN [facility] Start: 10-30-2022 End: 10-30-2022 Emergency department patient visit Omar Elliott [facility] 02 Start: 10-06-2022 End: 10-06-2022 Emergency department patient visit PAC Omar Martinivonne Elliott Facility:[id number] Start: 07-07-2021 End: 07-07-2021 Emergency department patient visit Malathi Aguirre [facility] 05 Start: 06-20-2021 End: 06-20-2021 Emergency department patient visit Omar Elliott [facility] 02 Start: 05-31-2021 End: 05-31-2021 Emergency department patient visit Omar Elliott [facility] 02 Start: 07-05-2020 End: 07-05-2020 Patient encounter procedure GONZALO BOBBY [facility] Start: 11-06-2019 End: 11-06-2019 Emergency department patient visit PHYSICIAN GODWIN [facility] Start: 11-06-2019 End: 11-06-2019 Emergency department patient visit Abdi Tello Work Phone: [facility] Emergency Department Comment on above: Nausea and vomiting, intractability of vomiting not specified, unspecified vomiting type (Primary Dx) Start: 11-04-2019 End: 11-04-2019 Emergency department patient visit Leila Juarez Work Phone: [facility] Emergency Department Comment on above: Less than 8 weeks ge station of (Primary Dx) Start: 11-04-2019 End: 11-04-2019 Emergency department patient visit Marty Apple Work Phone: [facility] Emergency Department Comment on above: Abdominal pain durin g in first trimester (Primary Dx); Gastroenteritis Start: 10-21-2019 End: 10-21-2019 Emergency department patient visit PHYSICIAN NO [facility] Start: 10-21-2019 End: 10-21-2019 Emergency department patient visit Michael Brooks Work Phone: [facility] Emergency Department Comment on above: Acute UTI (Primary D x) Start: 09-19-2019 End: 09-19-2019 Emergency department patient visit PHYSICIAN NO [facility] Start: 09-19-2019 End: 09-19-2019 Emergency department patient visit Abdi Tello Work Phone: [facility] Emergency Department Comment on above: Lightheadedness (Jodi neil Dx); Hypertension, unspecified type; Acute pharyngitis, unspecified etiology Start: 03-07-2019 End: 03-07-2019 Emergency department patient visit PHYSICIAN NO [facility] Start: 03-07-2019 End: 03-07-2019 Emergency department patient visit Dianna Sanford Work Phone: [facility] Emergency Department Comment on above: Acute UTI (Primary D x) Start: 10-29-2018 End: 10-30-2018 Patient encounter procedure MARIAJOSE MIKI [facility] Start: 10-12-2018 End: 10-14-2018 Evaluation and management of inpatient MARIAJOSEKENNETH EDMONDSON [facility] Procedures Date Procedure Procedure Detail Performing Clinician Start: 11-04-2019 Basic metabolic 2000 panel - Serum or Plasma Susi Pena Work Phone: Start: 11-04-2019 Choriogonadotropin [Units/volume] in Serum or Plasma Susi Pena Work Phone: Start: 11-04-2019 Complete blood count with white cell differential, automated Susi Pena Work Phone: Start: 11-04-2019 Complete blood count with white cell differential, manual Susi Pena Work Phone: Start: 11-04-2019 Urnls dip stick/tablet rgnt auto w/o microscopy Marty Apple Work Phone: Start: 11-04-2019 End: 11-04-2019 Choriogonadotropin ( test) [Presence] in Urine Marty Apple Work Phone: Start: 10-21-2019 Choriogonadotropin ( test) [Presence] in Urine [facility] Start: 10-21-2019 Urnls dip stick/tablet rgnt auto w/o microscopy [facility] Start: 09-19-2019 Choriogonadotropin ( test) [Presence] in Urine [facility] Start: 09-19-2019 Iaadiadoo streptococcus group a [facility] Start: 09-19-2019 Urnls dip stick/tablet rgnt auto w/o microscopy [facility] Start: 09-19-2019 12 lead ECG Abdi Tello Work Phone: Start: 03-07-2019 Basic metabolic 2000 panel - Serum or Plasma Dianna Sanford Work Phone: Start: 03-07-2019 Complete blood count with white cell differential, automated Dianna Sanford Work Phone: Start: 03-07-2019 Complete blood count with white cell differential, manual Dianna Sanford Work Phone: Start: 03-07-2019 Hepatic function 2000 panel - Serum or Plasma Dianna Sanford Work Phone: Start: 03-07-2019 Choriogonadotropin ( test) [Presence] in Urine Dianna Sanford Work Phone: Start: 03-07-2019 Urinalysis Dianna castillo Work Phone: Start: 01-27-2019 Adult depression screening assessment Abdi Tello Start: 01-27-2019 Microscopic observation [Identifier] in Cervix by Cyto stain Dianna Sanford Plan of Treatment Date Care Activity Detail Author Start: 01-28-2024 Screening for malign ant neoplasm of cervix PAP SMEAR [facility] Start: 01-28-2020 Depression screening using PHQ-9 (Patient Health Questionnaire 9) score DEPRESSION SCREENING (PHQ9) [facility] Start: 01-28-2020 History and physical examination, annual for health maintenance Wellness Visit [facility] Start: 05-25-2019 Influenza vaccination given [facility] Start: 1990 Depression screening using PHQ-9 (Patient Health Questionnaire 9) score DEPRESSION SCREENING (PHQ9) [facility] Start: 1990 Tetanus vaccination TETANUS EVERY 10 YR [facility] End: 03-07-2019 Bacteria identified Aer cx Nom (Unsp spec) Urine Aerobic Culture Microbiology Routine Once for 1 Occurrences starting 03/07/2019 until 03/07/2019 [facility] Comment on above: Once for 1 Occurrenc es starting 03/07/2019 until 03/07/2019 Bacteria identified Aer cx Nom (Unsp spec) [facility] End: 10-21-2019 Bacteria identified Aer cx Nom (Unsp spec) Urine Aerobic Culture Microbiology Routine Once for 1 Occurrences starting 10/21/2019 until 10/21/2019 [facility] Comment on above: Once for 1 Occurrenc es starting 10/21/2019 until 10/21/2019 End: 11-06-2019 Clostridium difficile toxin assay Clostridium difficile Testing Microbiology Routine Once for 1 Occurrences starting 11/06/2019 until 11/06/2019 [facility] Comment on above: Once for 1 Occurrenc es starting 11/06/2019 until 11/06/2019 End: 09-19-2019 S. pyogenes Org specific cx Ql (Throat) Strep A Culture, Throat Microbiology Routine Once for 1 Occurrences starting 09/19/2019 until 09/19/2019 [facility] Comment on above: Once for 1 Occurrenc es starting 09/19/2019 until 09/19/2019 S. pyogenes Org spec ific cx Ql (Throat) Strep A Culture, Throat Microbiology Routine 09/19/2019 5:39 PM EST [facility] Transvaginal obstetr ic ultrasonography US Obstetric Transvaginal Imaging YONATAN 11/04/2019 9:37 PM EST [facility] Payers Date Payer Category Payer Medicaid [employer] MEDICAID [employer] MEDICAID xxxxxxxxxxx 2018-Present xxxxxxxxxxx [id number] 2018 Medicaid [id number] 2018 Medicaid [id number] 1990 Unknown [id number] 1990 Unknown [id number] 1988 Unknown [id number] 1988 Unknown [id number] 1988 Unknown [id number] 1988 Unknown [id number] 1988 Unknown [id number] 1988 Unknown [id number] 1988 Unknown [id number] Unknown [employer] Social History Date Type Detail Facility Start: 03-07-2019 End: 11-06-2019 Tobacco smoking status ALIS Current every day smoker [facility] History of tobacco use Cigarette Smoker [facility] Start: 03-07-2019 End: 11-06-2019 Cigarettes smoked current (pack per day) - Reported [facility] Sex Assigned At Not on file [facility] Start: 09-19-2019 End: 11-06-2019 Alcohol intake Ex-drinker (finding) [facility] Tobacco smoking consumption unknown [facility] Goals Date Patient Goal Desired Activity /State Comment on above: Mild to moderate exe rcise under the guidance of your physician is usually safe and encouraged. Summary Purpose Family History No Family History Records FoundNo Family History Records FoundNo Family History Records FoundNo Family History Records FoundNo Family History Records FoundNo Family History Records FoundNo Family History Records FoundNo Family History Records Found Advance Directives No Advanced Directives Records FoundDocuments on File Type Date Recorded Patient Casing Blower Expl anation Advance Directives and Livin g Will 03/07/2019 12:03 PM Documents on File Type Date Recorded Patient Casing Blower Expl anation Advance Directives and Livin g Will 09/19/2019 4:53 PM Documents on File Type Date Recorded Patient Casing Blower Expl anation Advance Directives and Livin g Will 10/21/2019 5:40 PM Documents on File Type Date Recorded Patient Casing Blower Expl anation Advance Directives and Livin g Will 11/04/2019 5:07 PM Documents on File Type Date Recorded Patient Casing Blower Expl anation Advance Directives and Livin g Will 11/06/2019 5:00 PM Hospital Course Note HNO ID: [id number] Author: Lauren Edmondson Service: Gynecology Author Type: Physician Type: Discharge Summaries Filed: 10/15/2018 7:17 PM Note Text: DISCHARGE SUMMARY PATIENT NAME: Felisa Schreiber ADMISSION DATE: 10/12/2018 DISCHARGE DATE: 10/14/2018 ATTENDING PHYSICIAN: Mariajose Edmondson Code Status: Not on file Highest Readmission Risk Score: 9 The 30 day readmissions risk score is derived from an internally validated risk model which evaluates patient level characteristics, utilization history, medication orders and lab results up until the day of discharge. Patients with a score of 40 or above are considered highest risk for readmission. Specific patient level drivers will be listed at the bottom of the summary. REASON FOR HOSPITALIZATION: Pelvic inflammatory disease DIAGNOSIS: Pelvic inflammatory disease : Acute Tubo-ovarian abscess Chlamydia positive OPERATIONS DURING HOSPITALIZATION: None PROCEDURES DURING HOSPITALIZATION: No procedures performed HOSPITAL COURSE: 30 y (more content not included)... Discharge Instructions * Attachments The following attachments cannot be sent through Care Everywhere. * UTI (Urinary Tract Infection): Female ([place]er) documented in this encounter* Instructions* Abdi Tello MD - 09/19/2019 If unable to follow-up with the physician/clinic recommended above, please see an Urgent Care Clinic for re-evaluation within the same number of days. Return to the nearest emergency department at any time if there is: any new, returning or worsening symptoms chest discomfort that starts or worsens when you exert yourself, or that is relieved by rest nausea, dizziness or sweating Difficulty breathing Severe sore or swollen throat Severe headache Nausea/vomiting/diarrhea that prevents staying well-hydrated (sunken eyes, dry mouth, decreased urine production) new or changing rash fever > 100.4 (or feeling like there is a high fever if you don't have a thermometer) uncontrollable shaking chills difficulty following up as recommended or any other concerns about your condition or treatment. best regards, Abdi Tello MD * Attachments The following attachments cannot be sent through Care Everywhere. * [place] [facility] PCP ACCEPTING NEW PATIENTS IN [facility] * Lightheadedness or Faintness ([place]er) * Sore Throat ([place]er) * Hypertension ([place]er) documented in this encounter* Attachments The following attachments cannot be sent through Care Everywhere. * UTI (Urinary Tract Infection): Female ([place]er) documented in this encounter* Attachments The following attachments cannot be sent through Care Everywhere. * : Abdominal Pain ([place]er) documented in this encounter* Instructions* Abdi Tello MD - 11/06/2019 If unable to follow-up with the physician/clinic recommended above, please see an Urgent Care Clinic for re-evaluation within the same number of days. Return to the nearest emergency department at any time if there is: any new, returning or worsening symptoms pain that is changing character or location nausea/vomiting/diarrhea that prevents staying well-hydrated (e.g., sunken eyes, dry mouth, decreased urine production) new or changing rash fever > 100.4 (or feeling like there is a high fever if you don't have a thermometer) uncontrollable shaking chills difficulty following up as recommended or any other concerns about your condition or treatment. best regards, Abdi Tello MD * Attachments The following attachments cannot be sent through Care Everywhere. * Nausea and Vomiting ([place] Konger) * : Abdominal Pain ([place]er) documented in this encounter Assessments Diagnosis Acute UTI- Primary Urinary tract infection, site not specified Diagnosis Lightheadedness Dizziness and giddiness Hypertension, unspecified type Acute pharyngitis, unspecified etiology Diagnosis Acute UTI Urinary tract infection, site not specified Diagnosis Abdominal pain during in first trimester Gastroenteritis Other and unspecified noninfectious gastroenteritis and colitis Diagnosis Less than 8 weeks gestation of Diagnosis Nausea and vomiting, intractability of vomiting not specified, unspecified vomiting type Additional Source Comments INFORMATION SOURCE (unrecogn ized section and content) DATE CREATED AUTHOR 10/26/2018 [facility] DATE CREATED AUTHOR AUTHOR'S ORGANIZ ATION 11/12/2018 [facility] DATE CREATED AUTHOR AUTHOR'S ORGANIZ ATION 05/18/2019 [facility] DATE CREATED AUTHOR AUTHOR'S ORGANIZ ATION 11/08/2019 [facility] DATE CREATED AUTHOR AUTHOR'S ORGANIZ ATION 07/05/2020 [facility] DATE CREATED AUTHOR AUTHOR'S ORGANIZ ATION 10/31/2022 [facility] DATE CREATED AUTHOR AUTHOR'S ORGANIZ ATION 11/02/2022 [facility] DATE CREATED AUTHOR AUTHOR'S ORGANIZ ATION 07/05/2024 [facility] Reason for Visit (unrecogniz ed section and content) Reason Comments Back Pain Reason Comments Dizziness Sore Throat Reason Comments Back Pain lower Reason Comments Emesis Reason Comments Abdominal Pain States pain is LLQ Reason Comments Nausea Routine Visit Spotting since . Had w/previous . Natalie Dean RN - 03/07/2019 12:48 PM Dianna Faith Jr., MD - 03/07/2019 11:40 AM Natalie Astorga RN - 03/07/2019 11:37 AM Natalie Astorga RN - 03/07/2019 11:31 AM EDT ED Notes (unrecognized secti on and content) PT ambulates per self to [facility]. Pt alert, oriented and stable at sd. ED PROVIDER NOTE [facility] EMERGENCY DEPARTMENT NAME: Felisa Schreiber AGE: 28 y.o. : 1990 VISIT DATE: 03/07/2019 CSN: [id number] PCP: Physician No Chief Complaint Patient presents with Back Pain Patient states for the past 24 hours she has had back pain, nausea, and chills. She is also had urinary frequency. She states the last time I felt like this, I had an infection in my ovary and had to get admitted to [facility] in [place]. Past Medical History: Diagnosis Date Anxiety Depression Substance abuse (HCC) PAST History reviewed. No pertinent surgical history. Family History Problem Relation Age of Onset Hypertension Maternal Grandmother Hypertension Maternal Grandfather Hypertension Paternal Grandmother Hypertension Paternal Grandfather Social History Socioeconomic History Marital status: Single Spouse name: Not on file Number of children: Not on file Years of education: Not on file Highest education level: Not on file Occupational History Not on file Social Needs Financial resource strain: Not on file Food insecurity: Worry: Not on file Inability: Not on file Transportation needs: Medical: Not on file Non-medical: Not on file Tobacco Use Smoking status: Current Every Day Smoker Packs/day: 0.50 Types: Cigarettes Smokeless tobacco: Never Used Substance and Sexual Activity Alcohol use: Not Currently Drug use: Not Currently Sexual activity: Not Currently Partners: Male control/protection: None Lifestyle Physical activity: Days per week: Not on file Minutes per session: Not on file Stress: Not on file Relationships Social connections: Talks on phone: Not on file Gets together: Not on file Attends [employer] service: Not on file Active member of club or organization: Not on file Attends meetings of clubs or organizations: Not on file Relationship status: Not on file Other Topics Concern Not on file Social History Narrative Not on file No current outpatient medications on file prior to encounter. No Known Allergies Review of Systems Constitutional: Positive for chills. Genitourinary: Positive for frequency. Musculoskeletal: Positive for back pain. All other systems reviewed and are negative. Patient Vitals for the past 24 hrs: BP Temp Temp src Pulse Resp SpO2 Height Weight 03/07/19 1133 123/66 98.2 F (36.8 C) Oral 94 16 98 % 5' 1 61.7 kg (136 lb) Physical Exam Constitutional: She is oriented to person, place, and time. She appears well-developed and well-nourished. HENT: Head: Normocephalic and atraumatic. Right Ear: External ear normal. Left Ear: External ear normal. Nose: Nose normal. Mouth/Throat: Oropharynx is clear and moist. Eyes: Conjunctivae and EOM are normal. Neck: Normal range of motion. Cardiovascular: Normal rate. Pulmonary/Chest: Effort normal. Abdominal: Soft. She exhibits no distension. There is no tenderness. Musculoskeletal: Normal range of motion. Neurological: She is alert and oriented to person, place, and time. No cranial nerve deficit. Skin: Skin is warm and dry. Psychiatric: She has a normal mood and affect. Her behavior is normal. Laboratory & Radiographic Imaging (if done): Results for orders placed or performed during the hospital encounter of 03/07/19 Urinalysis Result Value Ref Range Color, Urine Yellow Colorless, Yellow Clarity, Urine Cloudy (A) Clear Specific [place] 1.015 1.005 - 1.025 pH, Urine 6.0 5.0 - 7.0 Protein, Urine Negative Negative mg/dL Glucose, Urine Negative Negative mg/dL Ketones, Urine Negative Negative mg/dL Bilirubin, Urine Negative Negative Urobilinogen, Urine <2.0 <2.0 mg/dL Blood, Urine Small (A) Negative Nitrite, Urine Positive (A) Negative Leukocyte Esterase, Urine Small (A) Negative WBCs, Urine 60 (H) 0 - 5 /hpf RBCs, Urine 3 0 - 3 /hpf Bacteria, Urine Many (A) None Seen /hpf Squamous Epithelial 3 0 - 4 /hpf Mucus, Urine Few (A) None Seen, Rare /lpf Urine Result Value Ref Range Beta-hCG, Ur, Qual Negative Negative BMP Result Value Ref Range Sodium 138 135 - 145 mmol/L Potassium 3.5 3.5 - 5.1 mmol/L Chloride 105 98 - 108 mmol/L Bicarbonate 25 21 - 32 mmol/L Anion Gap 12 10 - 20 mmol/L Glucose 83 65 - 99 mg/dL BUN 10 8 - 25 mg/dL Creatinine 0.86 0.40 - 1.10 mg/dL eGFR 91 >=60 mL/min/1.73 m2 BUN/Creatinine Ratio 11.6 10.0 - 20.0 Calcium 8.8 8.4 - 10.2 mg/dL Hepatic Function Panel (LFT) Result Value Ref Range Total Protein 8.0 6.0 - 8.0 g/dL Albumin 3.8 3.2 - 5.2 g/dL Total Bilirubin 0.7 0.0 - 1.3 mg/dL Bilirubin, Direct 0.1 0.0 - 0.4 mg/dL Alkaline Phosphatase 71 40 - 140 U/L AST 14 0 - 45 U/L ALT 16 14 - 65 U/L CBC Auto Differential Result Value Ref Range WBC 10.17 4.50 - 11.00 K/mcL RBC 4.26 4.00 - 5.20 M/mcL Hemoglobin 12.8 12.0 - 16.0 g/dL Hematocrit 37.7 36.0 - 46.0 % MCV 88.5 80.0 - 100.0 fL MCH 30.0 26.0 - 34.0 pg MCHC 34.0 31.0 - 37.0 g/dL Platelets 231 150 - 400 K/mcL RDW - CV 11.8 11.6 - 14.8 % MPV 11.0 9.0 - 15.5 fL Neutrophils 76.8 % Lymphocytes 13.3 % Monocytes 9.1 % Eosinophils 0.3 % Basophils 0.3 % IG Percent 0.20 % Neutrophils Abs 7.81 (H) 1.70 - 7.00 K/mcL Lymphocytes Abs 1.35 0.90 - 4.00 K/mcL Monocytes Abs 0.93 (H) 0.30 - 0.90 K/mcL Eosinophils Abs 0.03 0.00 - 0.50 K/mcL Basophils Abs 0.03 0.00 - 0.30 K/mcL IG Absolute 0.02 0.00 - 0.30 K/mcL No orders to display Procedures MDM Number of Diagnoses or Management Options Diagnosis management comments: Pending final urine culture, patient will be treated with antibiotics and symptom relief with Pyridium. Rest, clear oral fluids, and acetaminophen and/or ibuprofen for fever or discomfort should be used also. Recommending primary care follow-up within 48 to 72 hours or return for reevaluation if there is change worsening or new concern that arises. The patient has been informed that they may have pre-hypertension or hypertension based on a blood pressure reading in the Emergency Department. I recommend that the patient call the primary care provider listed on their discharge instructions or a physician of their choice as soon as possible to arrange follow-up in the next 4 weeks for further evaluation of possible pre-hypertension or hypertension. . Clinical Impression: SNOMED CT(R) 1. Acute UTI ACUTE URINARY TRACT INFECTION ED Disposition ED Disposition Condition Comment Discharge Stable Felisa Schreiber discharged to home/self care in stable condition. Follow-up Information 1. Milo Mojica CNP. Specialties: Family Medicine, Nurse Practitioner Why: YONATAN to schedule appointment in 1-3 days [address] [facility] [id number] Contact information for after-discharge care Follow-up information has not been specified. New Prescriptions nitrofurantoin, macrocrystal-monohydrate, (MACROBID) 100 MG capsule Take 1 (one) capsule (100 mg total) by mouth 2 (two) times a day for 14 doses . phenazopyridine (PYRIDIUM) 200 MG tablet Take 1 (one) tablet (200 mg total) by mouth 3 (three) times a day as needed for pain . Dianna Sanford Jr., MD 03/07/19 1244 Physician at bedside. Pt states that she thinks she has an infection stating that last night she felt hot to touch but freezing, lower back pain and vomiting last night. documented in this encounter Associated Order(s): EKG 12-lead ED PROVIDER NOTE [facility] EMERGENCY DEPARTMENT NAME: Felisa Schreiber AGE: 29 y.o. : 1990 VISIT DATE: 09/19/2019 CSN: [id number] PCP: Physician No Chief Complaint Patient presents with Dizziness Sore Throat HPI HPI: 29-year-old female with history of untreated hypertension, now presenting for lightheadedness and sore throat. Patient reports that she has had a sore throat for a few days, and her kids were all diagnosed with strep throat recently. She had diarrhea yesterday and today. Yesterday at work she became lightheaded, and today she had multiple episodes of lightheadedness along with a feeling of generalized tremor. Patient does not have nasal congestion or cough or fever or any GI symptoms other than the already mentioned diarrhea. No trauma. No chest discomfort or palpitations or dyspnea. Severity: Moderate Location: as above* Radiating to: only as above; otherwise none* Exacerbated by: only as above; otherwise none* Relieved by: only as above; otherwise none* Associated with: only as above; otherwise none* Historian(s) deny any other concerns. ROS negative except as above. I have reviewed and agree with the available nursing notes except as otherwise reported. I have reviewed available medical records. REVIEW OF SYSTEMS: Const: No fever Eyes: No vision change ENT: No congestion sore throat CV: No chest discomfort No syncope No edema Resp: No cough No SOB GI: No Abdo pain No nausea No vomiting diarrhea No constipation : No dysuria No hematuria MSK: Negative except as noted in HPI Skin: No rash Neuro: Nl mental status No MOORE Hem: No bleeding/clotting problems Psych: Nl behavior except as otherwise noted PHYSICAL EXAM: Patient Vitals for the past 24 hrs: BP Temp Temp src Pulse Resp SpO2 Height Weight 09/19/19 1606 (!) 125/90 97.8 F (36.6 C) Oral 90 18 98 % 5' 1 63.5 kg (140 lb) VS Reviewed. The Pulse ox is Normal* Constitutional: Non-toxic Head: Normocephalic Atraumatic Eyes: PERRL EOMi ENT: Mucus membranes moist No pharyngeal injection Neck: Nl ROM trachea midline No JVD No carotid bruits Cardiovascular: RRR Nl heart sounds Nl symmetric UE & LE pulses Nl color & cap refill peripherally Respiratory: No resp distress No overlying signs of trauma Nl symmetric chest movement CTAB Not diminished or absent NTTP Gastrointestinal: Non-distended Nl bowel sounds Soft NTTP No guarding No rebound No pulsatile mass Genitourinary: Deferred Back Nl inspection Tenderness Midline: NTTP Parasp: NTTP Lateral: NTTP CVA: NTTP Upper Extremities: Nl inspection Nl peripheral pulses Lower Extremities: Nl inspection No edema NTTP No cording Neurologic: Alert answers questions appropriately no focal deficits Psych: Appropriate Skin: Warm Dry Nl color No acute/emergency findings unless otherwise specified Past Medical History: Diagnosis Date Anxiety Depression Substance abuse (HCC) PAST History reviewed. No pertinent surgical history. Family History Problem Relation Age of Onset Hypertension Maternal Grandmother Hypertension Maternal Grandfather Hypertension Paternal Grandmother Hypertension Paternal Grandfather Social History Socioeconomic History Marital status: Single Spouse name: Not on file Number of children: Not on file Years of education: Not on file Highest education level: Not on file Occupational History Not on file Social Needs Financial resource strain: Not on file Food insecurity Worry: Not on file Inability: Not on file Transportation needs Medical: Not on file Non-medical: Not on file Tobacco Use Smoking status: Current Every Day Smoker Packs/day: 0.50 Types: Cigarettes Smokeless tobacco: Never Used Substance and Sexual Activity Alcohol use: Not Currently Drug use: Not Currently Sexual activity: Not Currently Partners: Male control/protection: None Lifestyle Physical activity Days per week: Not on file Minutes per session: Not on file Stress: Not on file Relationships Social connections Talks on phone: Not on file Gets together: Not on file Attends pres[employer] service: Not on file Active member of club or organization: Not on file Attends meetings of clubs or organizations: Not on file Relationship status: Not on file Other Topics Concern Not on file Social History Narrative Not on file Previous Medications Medication Sig [DISCONTINUED] phenazopyridine (PYRIDIUM) 200 MG tablet Take 1 (one) tablet (200 mg total) by mouth 3 (three) times a day as needed for pain . No Known Allergies Review of Systems Patient Vitals for the past 24 hrs: BP Temp Temp src Pulse Resp SpO2 Height Weight 09/19/19 1606 (!) 125/90 97.8 F (36.6 C) Oral 90 18 98 % 5' 1 63.5 kg (140 lb) Physical Exam Laboratory & Radiographic Imaging (if done): Results for orders placed or performed during the hospital encounter of 09/19/19 POC Rapid Strep A Result Value Ref Range Strep A Screen Negative Negative POC Urinalysis Dipstick, Auto Result Value Ref Range Spec Grav, UA 1.020 1.005 - 1.025 pH, UA 5.5 5.0 - 7.0 Protein, UA Negative Negative mg/dL Glucose, UA Negative Negative mg/dL Ketones, UA Negative Negative mg/dL Bilirubin, UA Negative Negative Urobilinogen, UA 0.2 <2.0 mg/dL Blood, UA Negative Negative Nitrite, UA Negative Negative Leukocyte Esterase, UA Negative Negative POC , Urine Result Value Ref Range POC Preg Test, Ur Negative Negative No orders to display EKG 12-lead Date/Time: 09/19/2019 5:00 PM Performed by: Abdi Tello MD Authorized by: Abdi Tello MD Previous ECG: no previous ECG available Rhythm: sinus rhythm BPM: 82 Conduction: conduction normal ST Segments: ST segments normal QRS axis: normal T Waves: T waves normal Other: no other findings Clinical impression: normal ECG MDM DDx (including but not limited to): ? Strep pharyngitis ? Uri ? Lytes/Dehydration ? ? uti ? Unlikely primary cardiac etiology such as dysrhythmia No indication of: ? ACS ? PE ED Course as of Sep 19 1749SunSep 19, 2019 174 Patient is clinically stable. Negative screen. Negative urinalysis, negative strep screen. [GN] ED Course User Index [GN] Abdi Tello MD The patient has been informed that they may have pre-hypertension or hypertension based on a blood pressure reading in the Emergency Department. I recommend that the patient call the primary care provider listed on their discharge instructions or a physician of their choice as soon as possible to arrange follow-up in the next 4 weeks for further evaluation of possible pre-hypertension or hypertension. . Considered appropriately wide DDx. At this time, acutely dangerous emergency conditions found to be unlikely based on history, exam, vitals and any testing, except as otherwise specified, and patient is appropriate for outpatient management. They understand, are appreciative and comfortable with outpatient plan (outlined below) including follow-up and return ED recommendations as discussed. Pt appears nontoxic, well-hydrated and comfortable. Clinical Impression: 1. Lightheadedness 2. Hypertension, unspecified type 3. Acute pharyngitis, unspecified etiology ED Disposition ED Disposition Condition Comment Discharge Stable Felisa Schreiber discharged to home/self care in stable condition. Follow-up Information 1. your regular primary care provider, or a primary care (or urgent care) clinic of your choice. Why: For recheck, to make sure that you are improving Contact information for after-discharge care Follow-up information has not been specified. Discontinued Medications Disp Refills Start End phenazopyridine (PYRIDIUM) 200 MG tablet 9 tablet 0 03/07/2019 09/19/2019 Sig: Take 1 (one) tablet (200 mg total) by mouth 3 (three) times a day as needed for pain . Class: Print Route: Oral Abdi Tello MD 09/19/19 8215 PRESENTS TO THE ED FOR DIZZINESS, LIGHT-HEADED, SORE THROAT, AND COUGH SINCE YESTERDAY. documented in this encounter Presents to ED c/o bilateral lower back pain x3 days. ED PROVIDER NOTE [facility] EM[facility]GENCY DE[facility] NAME: Felisa Schreiber AGE: 29 y.o. : 1990 VISIT DATE: 10/21/2019 CSN: [id number] PCP: Physician No Chief Complaint Patient presents with Back Pain lower 29-year-old female presents to the emergency department for evaluation of lower back spasms. Onset approximately 3 days ago. 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 Pain is worsened with rotation of the trunk. No fall. Pain does not radiate into the extremities. No incontinence. No groin or saddle anesthesia. No motor or sensory deficits. No fever or chills. No vaginal bleeding or discharge. States that she may have had some minimal dysuria. No other associated symptoms or complaints Past Medical History: Diagnosis Date Anxiety Depression Substance abuse (HCC) PAST History reviewed. No pertinent surgical history. Family History Problem Relation Age of Onset Hypertension Maternal Grandmother Hypertension Maternal Grandfather Hypertension Paternal Grandmother Hypertension Paternal Grandfather Social History Socioeconomic History Marital status: Single Spouse name: Not on file Number of children: Not on file Years of education: Not on file Highest education level: Not on file Occupational History Not on file Social Needs Financial resource strain: Not on file Food insecurity Worry: Not on file Inability: Not on file Transportation needs Medical: Not on file Non-medical: Not on file Tobacco Use Smoking status: Current Every Day Smoker Packs/day: 0.50 Types: Cigarettes Smokeless tobacco: Never Used Substance and Sexual Activity Alcohol use: Not Currently Drug use: Not Currently Sexual activity: Not Currently Partners: Male control/protection: None Lifestyle Physical activity Days per week: Not on file Minutes per session: Not on file Stress: Not on file Relationships Social connections Talks on phone: Not on file Gets together: Not on file Attends [employer] service: Not on file Active member of club or organization: Not on file Attends meetings of clubs or organizations: Not on file Relationship status: Not on file Other Topics Concern Not on file Social History Narrative Not on file No current outpatient medications on file prior to encounter. No Known Allergies Review of Systems Genitourinary: As per HPI Musculoskeletal: As per HPI All other systems reviewed and are negative. Patient Vitals for the past 24 hrs: BP Temp Temp src Pulse Resp SpO2 Height Weight 10/21/19 1744 129/83 10/21/19 1741 (!) 144/84 98 F (36.7 C) Oral 98 16 96 % 5' 1 63.5 kg (140 lb) Physical Exam Vitals signs and nursing note reviewed. Constitutional: General: She is not in acute distress. Appearance: Normal appearance. She is not ill-appearing, toxic-appearing or diaphoretic. HENT: Head: Normocephalic and atraumatic. Eyes: Conjunctiva/sclera: Conjunctivae normal. Neck: Musculoskeletal: Normal range of motion and neck supple. No muscular tenderness. Cardiovascular: Rate and Rhythm: Normal rate and regular rhythm. Pulses: Normal pulses. Heart sounds: Normal heart sounds. Pulmonary: Effort: Pulmonary effort is normal. Breath sounds: Normal breath sounds. Abdominal: General: Abdomen is flat. Palpations: Abdomen is soft. Tenderness: There is no abdominal tenderness. Musculoskeletal: General: No swelling or tenderness. Right lower leg: No edema. Left lower leg: No edema. Comments: Patient has reproducible tenderness to palpation in the lumbar musculature with reproduction of pain with rotation of the trunk. No CVA tenderness Skin: General: Skin is warm and dry. Findings: No rash. Neurological: General: No focal deficit present. Mental Status: She is alert and oriented to person, place, and time. Sensory: No sensory deficit. Motor: No weakness. Gait: Gait normal. Deep Tendon Reflexes: Reflexes normal. Psychiatric: Mood and Affect: Mood normal. Behavior: Behavior normal. Laboratory & Radiographic Imaging (if done): Results for orders placed or performed during the hospital encounter of 10/21/19 POC Urinalysis Dipstick, Auto Result Value Ref Range Spec Grav, UA 1.025 1.005 - 1.025 pH, UA 6.5 5.0 - 7.0 Protein, UA Negative Negative mg/dL Glucose, UA Negative Negative mg/dL Ketones, UA Negative Negative mg/dL Bilirubin, UA Negative Negative Urobilinogen, UA 0.2 <2.0 mg/dL Blood, UA Trace-intact (A) Negative Nitrite, UA Positive (A) Negative Leukocyte Esterase, UA Trace (A) Negative POC , Urine Result Value Ref Range POC Preg Test, Ur Negative Negative No orders to display Procedures MDM The patient has been informed that they may have pre-hypertension or hypertension based on a blood pressure reading in the Emergency Department. I recommend that the patient call the primary care provider listed on their discharge instructions or a physician of their choice as soon as possible to arrange follow-up in the next 4 weeks for further evaluation of possible pre-hypertension or hypertension. . Clinical Impression: 1. Acute UTI ED Disposition ED Disposition Condition Comment Discharge Good Felisa Schreiber discharged to home/self care in stable condition. Follow-up Information 1. Primary care provider of your choosing from provided list. Contact information for after-discharge care Follow-up information has not been specified. New Prescriptions cephALEXin (KEFLEX) 500 MG capsule Take 1 (one) capsule (500 mg total) by mouth 4 (four) times a day for 7 days . Michael Brooks DO 10/21/19 1758 documented in this encounter Pt. Transferred to [facility]. Pt. To transfer to [facility] via private auto. Pt. Arrives with nausea and pain in left lower quad of abdomin. Pt. Believes she has a tubal and wants checked for . documented in this encounter Pt back from ultrasound [facility] ED Provider Note: NAME: Felisa Schreiber 29 y.o. CSN: [id number] PCP: Physician No History: Chief Complaint: Abdominal Pain (States pain is LLQ) HPI: The history was obtained from the patient. She is a 29 y.o. female who presents with a chief complaint of Abdominal Pain (States pain is LLQ). Patient states she was sent over from the [facility] emergency room for a possible ectopic . She had a positive test here today and left lower abdominal pain. She states is been going on on and off for the last week or 2 but getting worse. States she is also very nauseous the last 3 days with a lot of vomiting. She states she has had an ectopic in the past no tubal ligations in the past PMHx: Past Medical History: Diagnosis Date Anxiety Depression Substance abuse (HCC) PAST PMSx: Past Surgical History: Procedure Laterality Date ECTOPIC SURGERY FAM. Hx: Family History Problem Relation Age of Onset Hypertension Maternal Grandmother Hypertension Maternal Grandfather Hypertension Paternal Grandmother Hypertension Paternal Grandfather SOC. Hx: Social History Socioeconomic History Marital status: Single Spouse name: Not on file Number of children: Not on file Years of education: Not on file Highest education level: Not on file Occupational History Not on file Social Needs Financial resource strain: Not on file Food insecurity Worry: Not on file Inability: Not on file Transportation needs Medical: Not on file Non-medical: Not on file Tobacco Use Smoking status: Current Every Day Smoker Packs/day: 0.50 Types: Cigarettes Smokeless tobacco: Never Used Substance and Sexual Activity Alcohol use: Not Currently Drug use: Not Currently Sexual activity: Not Currently Partners: Male control/protection: None Lifestyle Physical activity Days per week: Not on file Minutes per session: Not on file Stress: Not on file Relationships Social connections Talks on phone: Not on file Gets together: Not on file Attends [employer] service: Not on file Active member of club or organization: Not on file Attends meetings of clubs or organizations: Not on file Relationship status: Not on file Other Topics Concern Not on file Social History Narrative Not on file MEDs: No current outpatient medications on file prior to encounter. ALL: No Known Allergies ROS: Positives and pertinent negatives as per HPI. All other systems were reviewed and are negative. Physical Exam: Patient Vitals for the past 24 hrs: BP Temp Temp src Pulse Resp SpO2 Height Weight 11/04/19 2135 76 98 % 11/04/19 2134 116/81 11/04/19 1901 98 % 11/04/19 1857 128/79 98.1 F (36.7 C) Oral (!) 100 16 98 % 5' 1 64.4 kg (142 lb) Physical Exam Vitals signs and nursing note reviewed. Constitutional: General: She is not in acute distress. Appearance: She is well-developed. She is not ill-appearing. HENT: Head: Normocephalic and atraumatic. Eyes: Conjunctiva/sclera: Conjunctivae normal. Neck: Musculoskeletal: Normal range of motion and neck supple. Cardiovascular: Rate and Rhythm: Normal rate and regular rhythm. Pulmonary: Effort: Pulmonary effort is normal. No respiratory distress. Breath sounds: Normal breath sounds. No wheezing. Abdominal: General: There is no distension. Palpations: Abdomen is soft. Tenderness: There is abdominal tenderness. Comments: Patient has mild to moderate left lower abdominal tenderness Musculoskeletal: Normal range of motion. General: No swelling, tenderness, deformity or signs of injury. Skin: General: Skin is warm. Findings: No rash. Neurological: General: No focal deficit present. Mental Status: She is alert and oriented to person, place, and time. Cranial Nerves: No cranial nerve deficit. Sensory: No sensory deficit. Motor: No weakness or abnormal muscle tone. Coordination: Coordination normal. Psychiatric: Behavior: Behavior normal. Thought Content: Thought content normal. Judgment: Judgment normal. Laboratory & Radiological Imaging (if done): Labs Reviewed BASIC METABOLIC PANEL - Abnormal; Notable for the following components: Result Value Potassium 3.3 (*) All other components within normal limits Narrative: The eGFR should be used for monitoring renal function only and not for medication dosing. HCG, BLOOD, QUANTITATIVE - Abnormal; Notable for the following components: hCG Quant 32 (*) All other components within normal limits Narrative: Males and non females: <5 mIU/mL Females during : 3-4 weeks 9-130 mIU/mL 4-5 weeks 75-2600 mIU/mL 5-6 weeks 850-20,800 mIU/mL 6-7 weeks 4000-100,200 mIU/mL 7-12 weeks 11,500-289,000 mIU/mL 12-16 weeks 18,300-137,000 mIU/mL 16-29 weeks 1,400-53,000 mIU/mL 29-41 weeks 940-60,000 mIU/mL CBC AND DIFFERENTIAL Narrative: The following orders were created for panel order CBC w/ Diff. Procedure Abnormality Status --------- ------ CBC Auto Differential[[id number]] Final result Please view results for these tests on the individual orders. CBC WITH AUTO DIFFERENTIAL US Obstetric Transvaginal Preliminary Result The uterus and left ovary are of normal size and normal echotexture. The right ovary is not visualized which may be secondary to technical factors and or body habitus. Trace endocervical fluid and pelvic fluid is noted, which is nonspecific. Although no intrauterine is identified, in the setting of a positive beta-hCG early should be considered, and continued follow-up with serial beta hCG and repeat ultrasound is recommended to demonstrate normal progression and ensure that there is no occult ectopic. [facility] Workstation ID: [id number] Procedures: Procedures ED Course / Medical Decision Making: Patient's ultrasound did not show anything that looked specifically like an ectopic I think this is just a very early . She will need to be followed by her DIRECTOR DISTRIBUTION doctor for serial quant's and a repeat ultrasound. She was comfortable with this plan and was discharged in stable condition to follow-up with them. If she has any worsening symptoms any vaginal bleeding or pain she is to return to the emergency room for reevaluation . Clinical Impression: 1. Less than 8 weeks gestation of Disposition: Patient is being discharged to home Susi Pena PA-C [employer] [facility] Emergency Department Susi Pena PA-C 11/04/192221 Bed: 33 Expected date: Expected time: Means of arrival: Comments: closed Sent form [facility] with c/o LLQ pain. States has taken 4 preg tests, a;; negative but has not had period yet this month. Describes pain as as pulling. documented in this encounter Patient given specimen container w/sticker to take home to obtain specimen. Will drop-off at [facility]. Presents to the ED c/o nausea and requesting phenergan. Patient was seen here 2 days ago and sent to [facility] for an ultrasound. She was discharge from the ED there. [facility] patient was to follow-up with OB, but has not contacted at this time. Patient would like to be seen for the nausea and requesting a note for work. documented in this encounter ED Attestation Note - Leila Juarez MD - 11/04/2019 10:06 PM EST Miscellaneous Notes (unrecog nized section and content) ED Attestation: I did not see this patient. However, I was personally available for consult in the ED for this patient, if the Advanced Practice Provider (THAO) needed any assistance. The THAO evaluated the patient independently for a complaint of Abdominal Pain (States pain is LLQ), and completed their own examination, documentation, and discharge. documented in this encounter <item><item><item><item> Privacy Markings (unrecogniz ed section and content) Section Author: Deysi Wood PROHIBITION ON REDISCLOSURE OF CONFIDENTIAL INFORMATION This notice accompanies a disclosure of information concerning a client made to you with the consent of such client. Section Author: Deysi Wood PROHIBITION ON REDISCLOSURE OF CONFIDENTIAL INFORMATION This notice accompanies a disclosure of information concerning a client made to you with the consent of such client. Section Author: Deysi Wood PROHIBITION ON REDISCLOSURE OF CONFIDENTIAL INFORMATION This notice accompanies a disclosure of information concerning a client made to you with the consent of such client. Section Author: Deysi Wood PROHIBITION ON REDISCLOSURE OF CONFIDENTIAL INFORMATION This notice accompanies a disclosure of information concerning a client made to you with the consent of such client. FOR RECORDS PERTAINING TO PATIENTS WHO ARE OR HAVE BEEN ENROLLED IN A CHEMICAL DEPENDENCY/SUBSTANCEABUSE PROGRAM, SOME INFORMATION MAY BE OMITTED. This clinical summary was aggregated from multiple sources. Caution should be exercised in using it in the provision of clinical care. This summary normalizes information from multiple sources, and as a consequence, information in this document may materially change the coding, format and clinical context of patient data. In addition, data may be omitted in some cases. CLINICAL DECISIONS SHOULD BE BASED ON THE PRIMARY CLINICAL RECORDS. [employer] [facility]. provides no warranty or guarantee of the accuracy or completeness of information in this document.
[2025-05-03 19:35] VITALS: BP 130/87; PULSE 80
[2025-05-03 19:40] LABS: Internal QC Validated? YES +Cl - CLEAR BKGD; Pregnancy, Serum, hCG Quali. NEGATIVE Negative; Record Kit Lot#, Serum Preg. 0000962302
[2025-05-03 19:41] LABS: Alcohol, Blood (Medical)-Serum < 10.1 mg/dL (<=10.0)
[2025-05-03 19:42] LABS: AST(SGOT) 21 U/L (<=31); Alanine Aminotransfer ALT/SGPT 18 U/L (<=34); Albumin, Serum 4.6 g/dL (3.5-5.0); Alkaline Phosphatase 66 U/L (35-104); Anion Gap 15 (5-15); BUN 8 mg/dL (4-19); BUN/Creat Ratio 12.1 RATIO (10-20); Calcium,Total 9.9 mg/dL (7.6-11.0); Carbon Dioxide 19.1 mmol/L (21.0-32.0); Chloride 103 mmol/L (98-108); Estimated Creatinine Clearance 80.83 ml/min (50-250); Globulin 2.9 g/dL (2.2-4.2); Glucose 128 mg/dL (70-99); Potassium 3.8 mmol/L (3.3-5.1)
[2025-05-03 20:00] VITALS: BP 132/72; PULSE 80; O2SAT 100
[2025-05-03 20:14] LABS: Barbiturate Urine NEGATIVE (< 200 ng/mL); Benzodiazepine Urine NEGATIVE (< 200 ng/mL); PCP Urine NEGATIVE (< 25 ng/mL); THC Urine NEGATIVE (< 50 ng/mL)
--- NOTE | 2025-05-03 20:16 | HP.PCM.HOS_ITS ---
HPI - General General Date of Admission: 05/03/25 Date of Service: 05/03/25 Chief Complaint: Acute Opiate Withdrawal HPI Narrative The patient is a 34 y/o F w/ PMHx: Tobacco use, Anxiety and Depression previously on Wellbutrin but not currently on any medication, Opiate abuse and from review of external records patient had previously been on buprenorphine however last fill was noted 06/10/2024 and this was only a short course via [facility] then transition to methadone noting that she normally goes to the methadone however she has been missing her appointments including the day prior normally taking 125 mg daily in addition to the fact that over the last several days she has been using heroin as well as recent cocaine presenting for opiate detoxification request. She reports lethargy/fatigue, diaphoresis, chills/piloerection. Last usage of heroin the day prior, last usage of cocaine the day prior which she specifically reports that she snorts only. Workup in the ED included T98.4, heart 99, BP 118/84, respiratory rate 18, 100% room air, CBC with WBC 13, hemoglobin 14, platelet 221 with left shift, CMP with carbon [id number], BUN/creatinine 8/0.70, GFR 115, glucose 128, hepatic profile unremarkable, serum testing negative, UDS pending upon requested evaluation of patient, ethyl alcohol less than 10.1. [facility] Medical History Anxiety and depression Tobacco use Polysubstance abuse Medical History no medical history Allergy/AdvReac Type Severity Reaction Status Date / Time No Known Allergies Allergy Verified 05/03/25 18:38 Family History (Updated 05/03/25 @ 21:[address] Hui Berry MD) Mother No problems noted. Father , of overdose. Polysubstance abuse Anxiety and depression Surgical History (Updated 05/03/25 @ 21:[address] Hui Berry MD) History of tonsillectomy and adenoidectomy History of heart surgery Surgical History no surgical history Social History (Updated 05/03/25 @ 21:[address] Hui Berry MD) household members: children and other details: Has 4 children at home with her, age 19->4 years old. Smoking Status: Current every day smoker tobacco type: cigarettes Smoking packs per day: 0.5 Smoking cigarettes per day: 10.0 alcohol intake: never substance use type: crack/cocaine, heroin and opiates ROS ROS Narrative Admission Review of Systems: CONSTITUTIONAL: No weight loss, fever, + piloerection/chills, weakness or fatigue. HEENT: Eyes: No visual loss, blurred vision, double vision or yellow sclerae. Ears, Nose, Throat: No hearing loss, sneezing, congestion, runny nose or sore throat. SKIN: No rash or itching, lesions, wounds. CARDIOVASCULAR: No chest pain, chest pressure or chest discomfort, palpitations, edema, orthopnea, syncopal events. RESPIRATORY: No shortness of breath, cough or sputum, wheezing, hemoptysis. GASTROINTESTINAL: + Mild anorexia. No nausea, vomiting or diarrhea, abdominal pain, melena, BRBPR. GENITOURINARY: No dysuria, frequency, urgency or retention. NEUROLOGICAL: No headache, dizziness, syncope, paralysis, ataxia, numbness or tingling in the extremities, focal weakness, change in bowel or bladder control, seizure. MUSCULOSKELETAL: + muscle, back pain, joint pain or stiffness. HEMATOLOGIC: No anemia, bleeding or bruising. LYMPHATICS: No enlarged nodes. No history of splenectomy. PSYCHIATRIC: + History of anxiety and depression. ENDOCRINOLOGIC: + Diaphoresis, cold or heat intolerance. No polyuria or polydipsia. ALLERGIES: No history of asthma, hives, eczema or rhinitis. Vital Signs Vital Signs Vital Signs: 05/03/25 18:35 05/03/25 19:35 Temperature 98.4 F Temperature Source Oral Pulse Rate 99 80 Respiratory Rate 18 Blood Pressure 118/84 H 130/87 H Blood Pressure Mean 95 101 Pulse Ox 100 Oxygen Delivery Method Room Air Weight Weight: 101 lb 9.6 oz Body Mass Index (BMI) 19.2 Physical Exam Narrative Physical Examination: General: Awake, alert, oriented x 3 and cooperative, laying in ED bed, fatigued appearing, frequently yawning. Skin: Normal color, normal turgor, no icterus, no cyanosis except occasional stage ecchymoses, abrasion, tattoos present. HEENT: AT/NC, EOMI, PERRLA, moderately dry MM, no carotid bruits or JVD noted. Lungs: Mildly diminished, greater bases, appropriate effort, no rales, ronchi or wheezing. Heart: Regular rate and rhythm; no gallop, rub audible. Abdomen: Soft, NTTP, ND, hyperactive BS, no appreciated HSM. Extremities: No cyanosis, clubbing, or edema, see skin. Neurological: Patient awake, alert, oriented as noted cognitive function intact; pupils equally reactive to light and accommodation, cranial nerves grossly normal, moving all 4 extremities, no focal deficits, strength moderately globally decreased secondary to acute presentation complaints. Psychiatric: Affect appears fatigued, mildly uncomfortable, no acute evidence of depressive or anxiety feelings but does have underlying history. Results Lab / Micro Data 05/03/25 19:00 05/03/25 19:00 Labs: Laboratory Results - last 24 hr 05/03/25 19:00: WBC 13.0 H, RBC 4.67, Hgb 14.0, Hct 40.6, MCV 86.9, MCH 30.0, MCHC 34.5, RDW Std Deviation 38.2, RDW Coeff of Evangelista 11.9, Plt Count 221, MPV 11.2, Immature Gran % (Auto) 0.300, Neut % (Auto) 87.6 H, Lymph % (Auto) 7.7 L, Foard % (Auto) 4.1, Eos % (Auto) 0.0, Baso % (Auto) 0.3, Absolute Neuts (auto) 11.4 H, Absolute Lymphs (auto) 1.00, Nucleated RBC % 0, Sodium 138, Potassium 3.8, Chloride 103, Carbon Dioxide 19.1 L, Anion Gap 15, BUN 8, Creatinine 0.70, Estim Creat Clear Calc 80.83, Est GFR (MDRD) Non-Af 115, BUN/Creatinine Ratio 12.1, Glucose 128 H, Calcium 9.9, Total Bilirubin 0.49, AST 21, ALT 18, Alkaline Phosphatase 66, Total Protein 7.6, Albumin 4.6, Globulin 2.9, Albumin/Globulin Ratio 1.6, Serum , Qual NEGATIVE, Urine Opiates Screen NEGATIVE, U Buprenorphine Qual NEGATIVE, Ur Oxycodone Screen NEGATIVE, Urine Methadone Screen PRESUMPTIVE POSITIVE, Urine Fentanyl Screen PRESUMPTIVE POSITIVE, Ur Barbiturates Screen NEGATIVE, Ur Phencyclidine Scrn NEGATIVE, Ur Amphetamines Screen NEGATIVE, U Benzodiazepines Scrn NEGATIVE, Urine Cocaine Screen PRESUMPTIVE POSITIVE, U Cannabinoids Screen NEGATIVE, Ethyl Alcohol < 10.1 Assessment & Plan Assessment/Plan (1) Opiate withdrawal: PLAN: Plan The patient is a 34 y/o F w/ PMHx: Tobacco use, Anxiety and Depression previously on Wellbutrin but not currently on any medication, Opiate abuse and from review of external records patient had previously been on buprenorphine however last fill was noted 06/10/2024 and this was only a short course via [facility] then transition to methadone noting that she normally goes to the methadone however she has been missing her appointments including the day prior normally taking 125 mg daily in addition to the fact that over the last several days she has been using heroin as well as recent cocaine presenting for opiate detoxification request. #1. Acute Opiate Withdrawal: Will admit to [facility], routine labs including CBC, CMP, urine for drug screen obtained in the ED as noted, will initiate and continue on protocol with tapering course of Subutex, as needed tylenol, ibuprofen, bowel regimen, gabapentin, Bentyl, Vistaril, methocarbamol, clonidine, PRN nightly trazodone for insomnia, IV fluids, IV antiemetics. Once patient clinically improved and completion of taper nearing will plan consultation with case management for transition to next level of rehabilitation care. #2. Polysubstance Abuse: Given polysubstance abuse will obtain HIV, hepatitis and syphilis panel to be cautious, encourage clean status. #3. Tobacco Abuse: Encouraged cessation, inpatient consultation per RT, NR if desired. #4. DVT prophylaxis: Low risk for type of presentation, encourage ambulation. Charges/Coding Visit Charges Inpatient E&M: 78387 Init Hosp L2
[2025-05-03 20:31] VITALS: BP 132/72; PULSE 80; RESP 18; TEMP 36.8; O2SAT 100
[2025-05-03 21:00] VITALS: BP 132/89; PULSE 80; O2SAT 100
--- OUTSIDE RECORDS SUMMARY | 2025-05-03 21:42 | XMS RPT_ITS | CCD ---
Author Organization [facility] Care Team Providers Care Lease Operator Name Role Phone MARIAJOSE EDMONDSON Admitting Unavailable KOLLIKONDA, MARIAJOSE Attending Unavailable KOLBURTON TALAVERAAPNA Attending Unavailable No, Physician Primary Care Provider UnavailAlba Still Unavailable NO, PHYSICIAN Primary Care Unavailable DIANNA SANFORD JR. Attending Unav ailable JUVENAL KAPLAN, DIANNA WHEATLEY Admitting Unav ailable NO, PHYSICIAN Primary Care Unavailable ABDI TELLO Attending Un available TENAABDI SANCHEZ Admitting Un available NO, PHYSICIAN Primary Care Unavailable MICHAEL BROOKS Attending Unavailable MICHAEL BROOKS Admitting Unavailable NO, PHYSICIAN Primary Care Unavailable MARTY APPLE Attending Unavailable NO, PHYSICIAN Primary Care Unavailable ABDI TELLO Attending Un available ABDI TELLO Admitting Un available GONZALO HWANG Admitting Unav ailable GONZALO HWANG Referring Unav ailable NO, PHYSICIAN Primary Care Unavailable Required, No Pcp Unavailable Unavailable Lexi, Omar Unavailable TimothyAndrescy Unavailable Unavailable Lexi, PAC Omar Petr Attending Unavai lable Lexi, PAC Omar Humphreys Attending Unavai lable NO, PHYSICIAN Primary Care Unavailable Dr. Ángel Smith DO Referring Provider Dr. Ángel Smith DO Emergency Provider Ivan BYPRODUCTS OPERATOR-CBarb Primary Care Provider Kristi MCGOWAN, Dr. Hui John Admit Provider Dr. Hui Berry MD Attending Provider Medications Current Medications Medication Drug Class(es) Dates Sig (Normalized) Sig (Original) brompheniramine maleate 0.4 mg/ml / dextromethorphan hydrobromide 2 mg/ml / pseudoephedrine hydrochloride 6 mg/ml oral solution (5 sources) alpha-Adrenergic Agonist, Uncompetitive O-uccceb-Q-aspartat e Receptor Antagonist, Sigma-1 Agonist Start: 05-31-2021 take 5 mL by mouth four times daily brompheniramine/p seudoephedrine/de xtromethorphan 2wm-42pt-65ve/5 mL oral syrup ; 5 milliliter(s) orally [...] 0 Ordered: 31-May-2021 Omar Elliott Start: 31-May-2021 Status: Other Generic Substitution Allowed [...] Eustachian tube, right ear] Onset: 10-06-2022 Episodic Residual codes; unclassified (1 source) Admitted to substance misuse detoxification center; Translations: [Other specified health status] 05-03-2025 Episodic Substance-related disorders (1 source) Opioid withdrawal; Translations: [Opioid use, unspecified with withdrawal] 05-03-2025 Episodic Unclassified (2 sources) MOORE, FEVER 05-31-2021 [...] Test Name Value Interpretation Reference Range Facility Absolute lymphocyte countOrd ered By: Ángel Smith on 05-03-2025 Lymphocytes Auto (Unsp spec) [#/Vol] 1.00 10*3/uL 0.83-4.51 [facility] Absolute neutrophil countOrd ered By: Ángel Smith on 05-03-2025 Neutrophils (Bld) [#/Vol] 11.4 10*3/uL High 2.0-7.7 [facility] Amphetamine detection with 1 000 ng/mL as cutoffOrdered By: Ángel Smith on 05-03-2025 Amphetamines Screen method >1000 ng/mL Ql (U) Negative < 200 ng/mL [facility] Anion gap in Serum or Plasma Ordered By: Ángel Smith on 05-03-2025 Anion gap [Moles/Vol] 15 mmol/L 5-15 [facility] Automated lymphocyte count a s percentage of total leukocytesOrdered By: Ángel Smith on 05-03-2025 Lymphocytes/100 WBC Auto (Unsp spec) 7.7 % Low 19-41 [facility] BUN/creatinine ratioOrdered By: Ángel Ungveronica on 05-03-2025 Urea nitrogen/Creatinine [Mass ratio] 12.1 mg/mg 10-20 [facility] Basophil percentageOrdered B y: Ángel Smith on 05-03-2025 Basophils/100 WBC (Bld) 0.3 % 0-1 [facility] Bilirubin, totalOrdered By: Ángel Smith on 05-03-2025 Bilirubin [Mass/Vol] 0.49 mg/dL 0.00-1.30 [facility] Carbon dioxide, total [Moles /volume] in Central venous bloodOrdered By: Ángel Smith on 05-03-2025 CO2 [Moles/Vol] 19.1 mmol/L Low 21.0-32.0 [facility] Chloride assayOrdered By: Serena Smith on 05-03-2025 Chloride [Moles/Vol] 103 mmol/L 98-108 [facility] Eosinophil percentageOrdered By: Ángel Smith on 05-03-2025 Eosinophils/100 WBC (Bld) 0.0 % 0-5 [facility] Erythrocyte distribution wid th ratioOrdered By: Ángel Smith on 05-03-2025 Erythrocyte distribution width (RBC) [Ratio] 11.9 % 11.6-14.6 [facility] Erythrocyte distribution wid th standard deviationOrdered By: Ángel Ungveornica on 05-03-2025 Erythrocyte distribution width (RBC) [Ratio] 38.2 fl 35.1-43.9 [facility] Glomerular filtration rate ( GFR) estimation/1.73 sq m using serum, plasma, or whole bOrdered By: Ángel Smith on 05-03-2025 GFR/1.73 sq M.predicted among non-blacks MDRD (S/P/Bld) [Vol rate/Area] 115 mL/min/{1.73_m2} >60 [facility] Comment on above: mL/min/1.73m2 CKD-EP I Creatinine Equation (2020) Hematocrit Auto (Bld) [Volum e fraction]Ordered By: Ángel Smith on 05-03-2025 Hematocrit (Bld) [Volume fraction] 40.6 % 37-47 [facility] Hemoglobin measurementOrdere d By: Ángel Smith on 05-03-2025 Hemoglobin (Bld) [Mass/Vol] 14.0 g/dL 12.0-15.0 [facility] Immature granulocytes/100 WB C Auto (Bld)Ordered By: Ángel Smith on 05-03-2025 Immature granulocytes/100 WBC (Bld) 0.300 % 0.0-0.9 [facility] Comment on above: IG% - Immature Granu locytes (promyelocytes, myelocytes and metamyelocytes) > 1% indicates that a LEFT SHIFT is Present. Laboratory - Chemistry and C hemistry - challengeOrdered By: Ángel Smith on 05-03-2025 AST [Catalytic activity/Vol] 21 U/L <32 [facility] MCV (mean corpuscular volume ) determinationOrdered By: Ángel Smith on 05-03-2025 MCV (RBC) [Entitic vol] 86.9 fL 81-99 [facility] Mean corpuscular hemoglobin (MCH) determinationOrdered By: Ángel Smith on 05-03-2025 MCH (RBC) [Entitic mass] 30.0 pg 27.0-32.0 [facility] Mean corpuscular hemoglobin concentration (MCHC) determinationOrdered By: Ángel Smith on 05-03-2025 MCHC (RBC) [Mass/Vol] 34.5 g/dL 32-36 [facility] Mean platelet volume determi nationOrdered By: Ángel Smith on 05-03-2025 Platelet mean volume (Bld) [Entitic vol] 11.2 fL 6.2-12.0 [facility] Monocyte percentageOrdered B y: Ángel Smith on 05-03-2025 Monocytes/100 WBC (Bld) 4.1 % 0-10 [facility] Neutrophil percentageOrdered By: Ángel Smith on 05-03-2025 Neutrophils/100 WBC (Bld) 87.6 % High 47-70 [facility] No Panel InformationOrdered By: Ángel Smith on 05-03-2025 Urine Buprenorphine Qualitative Negative < 200 ng/mL [facility] Urine Oxycodone Screen Negative < 100 ng/mL [facility] Nucleated red blood cell per centageOrdered By: Ángel Smith on 05-03-2025 Nucleated RBC/100 WBC (Bld) [Ratio] 0 % 0-5 [facility] Platelet countOrdered By: Serena Smith on 05-03-2025 Platelets (Bld) [#/Vol] 221 10*3/uL 150-450 [facility] Potassium measurement (mass/ volume)Ordered By: Ángel Smith on 05-03-2025 Potassium (Unsp spec) [Mass/Vol] 3.8 mmol/L 3.3-5.1 [facility] Quantitative urine opiates m easurementOrdered By: Ángel Smith on 05-03-2025 Opiates Ql (U) Negative < 300 ng/mL [facility] RBC Auto (Bld) [#/Vol]Ordere d By: Ángel Smith on 05-03-2025 RBC (Bld) [#/Vol] 4.67 10*6/uL 4.2-5.4 [facility] Screening urine fentanyl wendy surementOrdered By: Ángel Smith on 05-03-2025 fentaNYL Screen Ql (U) Positive [facility] Comment on above: If confirmation test ing is needed, a separate order will be required to send out testing to the reference laboratory. Serum beta-hCG test, qualita tiveOrdered By: Ángel Smith on 05-03-2025 Beta HCG ( test) Ql Negative [facility] Serum creatinine measurement (mass/volume)Ordered By: Ángel Smith on 05-03-2025 Creatinine [Mass/Vol] 0.70 mg/dL 0.70-1.20 [facility] Serum globulin measurementOr dered By: Ángel Smith on 05-03-2025 Globulin (S) [Mass/Vol] 2.9 g/dL 2.2-4.2 [facility] Serum glucose measurement (m ass/volume)Ordered By: Remus Smith on 05-03-2025 Glucose [Mass/Vol] 128 mg/dL High 70-99 [facility] Serum or plasma alanine tian otransferase (ALT) measurementOrdered By: Remus Ungveronica on 05-03-2025 ALT [Catalytic activity/Vol] 18 U/L <35 [facility] Serum or plasma albumin preeti urement (mass/volume)Ordered By: Remus Ungur on 05-03-2025 Albumin [Mass/Vol] 4.6 g/dL 3.5-5.0 [facility] Serum or plasma albumin/glob ulin mass ratioOrdered By: Remus Ungveronica on 05-03-2025 Albumin/Globulin [Mass ratio] 1.6 {ratio} 0.9-2.4 [facility] Serum or plasma alkaline bobbi sphatase measurementOrdered By: Remus Ungveronica on 05-03-2025 ALP [Catalytic activity/Vol] 66 U/L 35-104 [facility] Serum or plasma calcium preeti urement (mass/volume)Ordered By: Remus Ungveronica on 05-03-2025 Calcium [Mass/Vol] 9.9 mg/dL 7.6-11.0 [facility] Serum or plasma ethanol preeti urement (mass/volume)Ordered By: Remus Ungveronica on 05-03-2025 Ethanol [Mass/Vol] mg/dL <10.1 [facility] Comment on above: This test is for med ical purposes only. The legal definition of intoxication varies according to local law. Serum or plasma urea nitroge n measurement (mass/volume)Ordered By: Remus Luis on 05-03-2025 Urea nitrogen [Mass/Vol] 8 mg/dL 4-19 [facility] Sodium levelOrdered By: Remu s Luis on 05-03-2025 Sodium [Moles/Vol] 138 mmol/L 133-145 [facility] Total proteinOrdered By: Rem us Ungur on 05-03-2025 Protein [Mass/Vol] 7.6 g/dL 5.9-8.4 [facility] Urine benzodiazepine levelOr dered By: Remus Ungveronica on 05-03-2025 Benzodiazepines Ql (U) Negative < 200 ng/mL [facility] Urine cocaine levelOrdered B y: Remus Ungur on 05-03-2025 Cocaine Ql (U) Positive < 300 ng/mL [facility] Comment on above: If confirmation test ing is needed, a separate order will be required to send out testing to the reference laboratory. Urine rgkbs-2-wagbfpaofktvhk abinol (THC) measurementOrdered By: Remus Ungur on 05-03-2025 Cannabinoids Screen Ql (U) Negative < 50 ng/mL [facility] Urine phencyclidine (PCP) de tectionOrdered By: Remus Ungur on 05-03-2025 Phencyclidine Ql (U) Negative < 25 ng/mL [facility] White blood cell (WBC) count Ordered By: Remus Ungveronica on 05-03-2025 WBC (Bld) [#/Vol] 13.0 10*3/uL High 4.4-11.0 [facility] COVID-19/INFLUENZA A,B MOLEC ULARon 06-11-2024 SARS-CoV-2 (COVID-19) Ab IA Ql SARS-COV-2 (KATE) Detected INFLUENZA A (KATE) Not Detected INFLUENZA B (KATE) Not Detected Abnormal Not Detected [facility] Comment on above: Performed By: #### L [id number] #### [facility] [address] [address] Maxi Brian M.D. [id number] Provider Note - ED v3on 02-0 Provider Note - ED v3 Provider Note: [...] Vital Sign Value Date PAST MEDICAL HISTORY ALLERGIES/INTOLERAN DAVID: No Known Allergies HEALTH HISTORY: No documented [...] CARE RESULTS: Recent Lab Results: Nitrate positive tnrhb-ng-[id number] urinalysis will be sent for culture and sensitivity. VITAL SIGNS: T PRBP SpO2O2(LPM) %FiO2 Method 30-Oct-2022 11:15:[id number] 95RA [facility] MDM/ED COURSE: 1) acute cystitis with nitrate positive urine: Patient be treated empirically with Ceftin will await C&S, and call patient with results when available. Encouraged to push fluids 2) URI symptoms: Patient be treated supportively, encouraged to push fluids take tofp-mev-frrnuxh medications as needed she agrees plan of care she was discharged with note for work.Discussed Findings with: patient Data Reviewed: vital signs Conducted Detailed Discussion with Patient and/or Guardian Regarding: lab results and need for outpatient follow-up DISPOSITION Diagnosis/Annotatio n: ED Dx Name:Acute cystitis Code:N30.00 Name:URI with cough and congestion Code:J06.9 Disposition: discharged CONSULT CRITICAL CARE TIME Is this a critically ill patient: no Electronic Signatures: Omar Elliott (PAC) (Signed 30-Oct-2022 12:11) Authored: HPI, PMH, ROS, PE, Results/Vital Signs, MDM/ED Course, Clinical Impression, Attestation, Chart Review, Scores Last Updated: 30-Oct-2022 12:11 by Omar Elliott (PAC) [facility] URINE CULTURE,BACTERIALon URINE CULTURE,BACTERIAL PATIENT: FELISA SCHREIBER LOCATION: [facility]#: [id number] : 86 AGE: SEX: F ORDERED BY: OMAR ELLIOTT SOURCE: URINE COLLECTED: 10/30/22 15:39 ANTIBIOTICS AT YOUSIF.: RECEIVED : 10/30/22 23:38 SITE: Clean Catch/Voided R E S U L T S URINE CULTURE,BACTERIAL FINAL 11/01/22 15:17 ISOLATE1 : Escherichia coli >100,000 CFU/ML Organism E coli Antibiotic BP INTRP Ampicillin S Ceftriaxone S Cefazolin S Ciprofloxacin S Nitrofurantoin S Gentamicin S Levofloxacin S Piperc/Tazobact S Trimeth/Sulfa S __ S=SUSCEPTIBLE I=INTERMEDIATE R=RESISTANT SDD=SUSCEPTIBLE DOSE DEPENDENT NS=NONSUSCEPTIBLE X=REPORTED IN ERROR __ Normal [facility] Comment on above: Performed By: #### U [facility] #### [facility] [address] [place] [address] Provider Note - ED v3on 09-24 Provider [...] and constant. Modifying factors: Better with OTC medication.Pertinen t history is none related to reason for visit. PAST MEDICAL HISTORY CURRENT OR FORMER SUBSTANCE USE: Tobacco/Nicotine Use: never smoker ALLERGIES/INTOLERAN DAVID: No Known Allergies HEALTH HISTORY: No documented data. OUTPATIENT MEDICATIONS: Home Medications Review Status for Reconciliation: Complete Med Status: Patient Currently Takes Medications Drug Name: gabapentin Instructions: null Drug Name: Wellbutrin Instructions: null Drug Name: brompheniramine/pse udoephedrine/dextro methorphan 0ma-81dt-80uk/5 mL oral syrup Instructions: 5 milliliter(s) orally 4 times a day, As Needed -for congestion - for cough Drug Name: fluticasone 50 mcg/inh nasal spray Instructions: 50 microgram(s) in each nostril once a day SIGNIFICANT EVENTS: Past Surgical History Description:OPEN HEART SURGERY. 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 REVIEW OF SYSTEMS CONSTITUTIONAL: [...] SIGNS: T PRBP SpO2O2(LPM) %FiO2 Method 06-Oct-2022 10:01:[id number] 96RA MDM MDM/ED COURSE: 1) URI with cough and congestion, and a eustachian tube dysfunction right sided: Supportive care rendered, discussed Valsalva maneuvers, discussed use of prescription meds and 10 mg Decadron provided in the office, patient agrees plan of care we did provide a note for work she was discharged.Leandro stuart Diagnosis: allergic rhinitis, laryngitis, otitis externa, otitis media, pain and pharyngitis Discussed Findings with: patient Data Reviewed: vital signs Conducted Detailed Discussion with Patient and/or Guardian Regarding: need for outpatient follow-up DISPOSITION Diagnosis/Annotatio n: ED Dx Name:Dysfunction of right eustachian tube Code:H69.81 Name:URI with cough and congestion Code:J06.9 Disposition: discharged CONSULT CRITICAL CARE TIME Is this a critically ill patient: no Electronic Signatures: Omar Elliott (PAC) (Signed 06-Oct-2022 11:18) Authored: HPI, PMH, ROS, PE, Results/Vital Signs, MDM/ED Course, Clinical Impression, Attestation, Chart Review, Scores Last Updated: 06-Oct-2022 11:18 by Omar Elliott ([facility]) Normal [facility] COVID-19, MOLECULARon 2019 SARS-COV-2 RNA (ARCELIA) Not Detected Normal Not Detecte d [facility] Comment on above: Order Comment: Niesha Hwang [phone] Result Comment: This test was performed under [...] at the following links: For Healthcare Providers: https://www.fda.gov/media/516642/download For Patients: https://www.fda.gov/media/642271/download Performed By: #### L [id number] #### [facility] [address] [place] [address] Russ Olson M.D. [id number] [facility] 11-04-2019 Anion gap [Moles/Vol] 11 mmol/L 10 - 2 0 mmol/L [facility] Calcium [Mass/Vol] 8.8 mg/dL 8.4 - 10. 2 mg/dL [facility] Chloride [Moles/Vol] 104 mmol/L 98 - 10 8 mmol/L [facility] Creatinine [Mass/Vol] 0.69 mg/dL 0.40 - 1.10 [facility] GFR/1.73 sq M predicted among non-blacks MDRD (S/P/Bld) [Vol rate/Area] The eGFR should be used for monitoring renal function only and not for medication dosing. [facility] GFR/1.73 sq M.predicted CKD-EPI (S/P/Bld) [Vol rate/Area] 116 >=60 mL/min/1.73 m2 [facility] Glucose [Mass/Vol] 75 mg/dL 65 - 99 mg/dL [facility] HCO3 [Moles/Vol] 24 mmol/L 21 - 32 mmol/L [facility] Potassium [Moles/Vol] 3.3 mmol/L Low 3.5 - 5.1 mmol/L [facility] Sodium [Moles/Vol] 136 mmol/L 135 - 145 mmol/L [facility] Urea nitrogen [Mass/Vol] 10 mg/dL 8 - 25 mg/d L [facility] Urea nitrogen/Creatinine [Mass ratio] 14.5 mg/mg [facility] CBC WITH AUTO DIFFERENTIALon 11-04-2019 Basophils (Bld) [#/Vol] 0.05 10*3/uL [facility] Basophils/100 WBC (Bld) 0.6 % [facility] Eosinophils (Bld) [#/Vol] 0.12 10*3/uL [facility] Eosinophils/100 WBC (Bld) 1.4 % [facility] Erythrocyte distribution width (RBC) [Entitic vol] 13.3 % 11.6 - 14.8 % [facility] Hematocrit (Bld) [Volume fraction] 42.0 % 36 - 46 % [facility] Hemoglobin (Bld) [Mass/Vol] 14.4 g/dL 12 - 16 g/dL [facility] Immature granulocytes (Bld) [#/Vol] 0.03 10*3/uL [facility] Immature granulocytes/100 WBC (Bld) 0.30 % [facility] Comment on above: The IG parameter is the percentage of metamyelocytes, myelocytes, and promyelocytes. Lymphocytes (Bld) [#/Vol] 2.24 10*3/uL [facility] Lymphocytes/100 WBC (Bld) 25.7 % [facility] MCH (RBC) [Entitic mass] 31.8 pg 26 - 34 pg [facility] MCHC (RBC) [Mass/Vol] 34.3 g/dL 31 - 37 g/dL [facility] MCV (RBC) [Entitic vol] 92.7 fL 80 - 100 fL [facility] Monocytes (Bld) [#/Vol] 0.66 10*3/uL [facility] Monocytes/100 WBC (Bld) 7.6 % [facility] Neutrophils (Bld) [#/Vol] 5.63 10*3/uL [facility] Neutrophils/100 WBC (Bld) 64.4 % [facility] Nucleated RBC (Bld) [#/Vol] 0.00 10*3/uL [facility] Nucleated RBC/100 WBC (Bld) [Ratio] 0.0 % [facility] Platelet mean volume (Bld) [Entitic vol] 11.1 fL 9 - 15.5 fL [facility] Platelets (Bld) [#/Vol] 196 10*3/uL [facility] RBC (Bld) [#/Vol] 4.53 10*6/uL [facility] WBC (Bld) [#/Vol] 8.73 10*3/uL [facility] HCG (QUANTITATIVE)on 020 Beta HCG ( test) Ql (U) Males and non females: <5 mIU/mL Females during : 3-4 weeks 9-130 mIU/mL 4-5 weeks 75-2600 mIU/mL 5-6 weeks 850-20,800 mIU/mL 6-7 weeks 4000-100,200 mIU/mL 7-12 weeks 11,500-289,000 mIU/mL 12-16 weeks 18,300-137,000 mIU/mL 16-29 weeks 1,400-53,000 mIU/mL 29-41 weeks 940-60,000 mIU/mL [facility] HCG Qn 32 m[IU]/mL High [facility] Otheron 11-04-2019 Interpretation and review of laboratory results Abnormal [facility] POC , Urineon 11-04 HCG ( test) Ql (U) Positive Abnormal Negative [facility] Interpretation and review of laboratory results Abnormal [facility] HCG ( test) Ql (U) Positive Abnormal Negative [facility] Interpretation and review of laboratory results Abnormal [facility] Urinalysis Dipstick, Aut oon 11-04-2019 Bilirubin Ql (U) Negative Negative [facility] Glucose Ql (U) Negative Negative mg/dL [facility] Hemoglobin Ql (U) Negative Negative [facility] Interpretation and review of laboratory results Normal [facility] Ketones Ql (U) Negative Negative mg/dL [facility] Leukocyte esterase Test strip Ql (U) Negative Negative [facility] Nitrite Ql (U) Negative Negative [facility] pH (U) 6.5 [pH] [facility] Protein Ql (U) Negative Negative mg/dL [facility] Specific gravity (U) [Rel density] 1.020 [facility] Urobilinogen Qn (U) 1.0 mg/dL <2.0 [facility] POC , Urineon 10-21 Beta HCG ( test) Ql (U) Dilute urine specimens, as indicated by a low specific gravity (<1.010) may not contain inventory representative levels of hCG. If is still suspected, a serum test or repeat urine test using a first morning urine specimen should be considered. [facility] HCG ( test) Ql (U) Negative Negative [facility] Interpretation and review of laboratory results Normal [facility] POC Urinalysis Dipstick, Aut oon 10-21-2019 Bilirubin Ql (U) Negative Negative [facility] Glucose Ql (U) Negative Negative mg/dL [facility] Hemoglobin Ql (U) Trace-intact Abnormal Negative [facility] Interpretation and review of laboratory results Abnormal [facility] Ketones Ql (U) Negative Negative mg/dL [facility] Leukocyte esterase Test strip Ql (U) Trace Abnormal Negative [facility] Nitrite Ql (U) Positive Abnormal Negative [facility] pH (U) 6.5 [pH] [facility] Protein Ql (U) Negative Negative mg/dL [facility] Specific gravity (U) [Rel density] 1.025 [facility] Urobilinogen Qn (U) 0.2 mg/dL <2.0 [facility] ECG 12-LEADon 09-19-2019 Abdi Tello MD 09/19/2019 5:50 PM EKG 12-lead Date/Time: 09/19/2019 5:00 PM Performed by: Abdi Tello MD Authorized by: Abdi Tello MD Previous ECG: no previous ECG available Rhythm: sinus rhythm BPM: 82 Conduction: conduction normal ST Segments: ST segments normal QRS axis: normal T Waves: T waves normal Other: no other findings Clinical impression: normal ECG [facility] POC , Urineon 09-19 Beta HCG ( test) Ql (U) Dilute urine specimens, as indicated by a low specific gravity (<1.010) may not contain inventory representative levels of hCG. If is still suspected, a serum test or repeat urine test using a first morning urine specimen should be considered. [facility] HCG ( test) Ql (U) Negative Negative [facility] Interpretation and review of laboratory results Normal [facility] POC Rapid Strep Aon 09-19-20 19 Interpretation and review of laboratory results Normal [facility] S. pyogenes Ag Ql (Throat) Negative Negative [facility] POC Urinalysis Dipstick, Aut oon 09-19-2019 Bilirubin Ql (U) Negative Negative [facility] Glucose Ql (U) Negative Negative mg/dL [facility] Hemoglobin Ql (U) Negative Negative [facility] Interpretation and review of laboratory results Normal [facility] Ketones Ql (U) Negative Negative mg/dL [facility] Leukocyte esterase Test strip Ql (U) Negative Negative [facility] Nitrite Ql (U) Negative Negative [facility] pH (U) 5.5 [pH] [facility] Protein Ql (U) Negative Negative mg/dL [facility] Specific gravity (U) [Rel density] 1.020 [facility] Urobilinogen Qn (U) 0.2 mg/dL <2.0 [facility] ealt BMPon 03-07-2019 Anion gap molar conc 12 mmol/L 10 - 20 mmol/L [facility] Calcium mass conc 8.8 mg/dL 8.4 - 10.2 mg/dL [facility] Chloride molar conc 105 mmol/L 98 - 108 mmol/L [facility] Creatinine mass conc 0.86 mg/dL 0.4 - 1 .1 mg/dL [facility] GFR/1.73 sq M predicted among non-blacks MDRD vol rate/area (S/P/Bld) The eGFR should be used for monitoring renal function only and not for medication dosing. [facility] GFR/1.73 sq M.predicted CKD-EPI vol rate/area (S/P/Bld) 91 >=60 mL/min/1.73 m2 [facility] Glucose mass conc 83 mg/dL 65 - 99 mg/dL [facility] [place] [facility] molar conc 25 mmol/L 21 - 32 mmol/L [facility] Potassium molar conc 3.5 mmol/L 3.5 - 5 .1 mmol/L [facility] Sodium molar conc 138 mmol/L 135 - 145 mmol/L [facility] Urea nitrogen mass conc 10 mg/dL 8 - 25 mg/dL [facility] Urea nitrogen/Creatinine mass ratio 11.6 mg/mg [facility] CBC WITH AUTO DIFFERENTIALon 03-07-2019 Basophils #/vol (Bld) 0.03 10*3/uL [facility] Basophils/100 WBC (Bld) 0.3 % [facility] Eosinophils #/vol (Bld) 0.03 10*3/uL [facility] Eosinophils/100 WBC (Bld) 0.3 % [facility] Erythrocyte distribution width Entitic volume (RBC) 11.8 % 11.6 - 14.8 % [facility] Hematocrit Volume Fraction (Bld) 37.7 % 36 - 46 % [facility] Hemoglobin mass conc (Bld) 12.8 g/dL 12 - 16 g/dL [facility] Immature granulocytes #/vol (Bld) 0.02 10*3/uL [facility] Immature granulocytes/100 WBC (Bld) 0.20 % [facility] Comment on above: The IG parameter is the percentage of metamyelocytes, myelocytes, and promyelocytes. Interpretation and review of laboratory results Abnormal [facility] Lymphocytes #/vol (Bld) 1.35 10*3/uL [facility] Lymphocytes/100 WBC (Bld) 13.3 % [facility] MCH Entitic mass (RBC) 30.0 pg 26 - 34 pg [facility] MCHC mass conc (RBC) 34.0 g/dL 31 - 37 g/dL [facility] MCV Entitic volume (RBC) 88.5 fL 80 - 100 fL [facility] Monocytes #/vol (Bld) 0.93 10*3/uL [facility] Monocytes/100 WBC (Bld) 9.1 % [facility] Neutrophils #/vol (Bld) 7.81 10*3/uL High [facility] Neutrophils/100 WBC (Bld) 76.8 % [facility] Platelet mean volume Entitic volume (Bld) 11.0 fL 9 - 15.5 fL [facility] Platelets #/vol (Bld) 231 10*3/uL [facility] RBC #/vol (Bld) 4.26 10*6/uL [facility] WBC #/vol (Bld) 10.17 10*3/uL [facility] Hepatic Function Panel (LFT) on 03-07-2019 Albumin mass conc 3.8 g/dL 3.2 - 5.2 g/dL [facility] ALP enzyme act/vol 71 U/L 40 - 140 U/L [facility] ALT enzyme act/vol 16 U/L 14 - 65 U/L [facility] ealt AST enzyme act/vol 14 U/L 0 - 45 U/L [facility] Bilirubin mass conc 0.7 mg/dL 0 - 1.3 mg/dL [facility] Bilirubin.conjugated mass conc 0.1 mg/dL 0 - 0.4 mg/dL [facility] Protein mass conc 8.0 g/dL 6 - 8 g/dL [facility] Otheron 03-07-2019 Interpretation and review of laboratory results Normal [facility] URINALYSISon 03-07-2019 Bacteria Auto Ql (U) Many Abnormal None Se en /hpf [facility] Bilirubin Ql (U) Negative Negative [facility] th Clarity Refractometry automated Nom (U) Cloudy Abnormal Clear [facility] Color Nom (U) Yellow Colorless, Yellow [facility] Epithelial cells.squamous Auto #/area (Urine sed) 3 [facility] Glucose Automated test strip mass conc (U) Negative Negative mg/dL [facility] Hemoglobin Automated test strip Ql (U) Small Abnormal Negative [facility] Interpretation and review of laboratory results Abnormal [facility] Ketones mass conc (U) Negative Negati ve mg/dL [facility] Leukocyte esterase Automated test strip Ql (U) Small Abnormal Negative [facility] Mucus Auto #/area (Urine sed) Few Abnormal None Seen, Rare /lpf [facility] Nitrite Automated test strip Ql (U) Positive Abnormal Negative [facility] pH (U) 6.0 [pH] [facility] Protein mass conc (U) Negative Negati ve mg/dL [facility] RBC Auto #/area (Urine sed) 3 [facility] Specific gravity Relative Density (U) 1.015 [facility] Urobilinogen mass conc (U) <2.0 <2.0 mg/dL [facility] WBC Auto #/area (Urine sed) 60 High [facility] Microscopic examination is performed on all urinalysis samples and only positive findings are reported. The test for blood on the chemical analytic portion of urinalysis may also be positive due to hemoglobinuria and myoglobinuria and if red blood cells are present they are quantified by microscopic examination. [facility] Urine Pregnancyon 03-07-2019 HCG ( test) Ql (U) Negative Negative [facility] Interpretation and review of laboratory results Normal [facility] CNOVon 10-29-2018 CNOV Office Visit ([facility]) ---- FELISA SCHREIBER ([id number]) 1990 F Date Time Provider Department 10/29/18 2:30 PM MARIAJOSE EDMONDSON [facility] During your visit today, we recorded [...] hours as needed for Pain. No current facility-administer ed medications for this visit. 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 No current facility-administer ed medications for this visit. Allergies As of [...] external genitalia normal, normal Bartholin's glands, urethra, [place]'s glands, no vulvar lesions, no cervical lesions, [...] talking face to face. Mariajose Edmondson MD [facility] HEALTH 10-14-2018 ALLIED HEALTH HNO ID: [id number] Author: Sr Lisa Mcgee (Chaplain) Service: Spiritual Care Author Type: Asphalt Blender Type: Allied Health Filed: 10/14/2018 2:08 PM Note Text: SPIRITUAL CARE ASSESSMENT SERVICE DATE: 10/14/2018 SERVICE TIME: 1353 TYPE OF VISIT: Introductory Visit. Urgency of Visit: Routine. Visit was with: Patient . INITIAL ASSESSMENT VISIT: Additional Notes: Patient is resting and brief pastoral care introduction visit shared with patient. Pastoral care support and presence provided at bedside. Follow-up Notes: Informed patient of Asphalt Blender availability.. For immediate or Emergent need call PBX ([phone]), and ask to page for the Chaplains. For non emergent need call [phone] or submit an epic consult. SIGNATURE: Chaplain Jonatan PATIENT NAME: Felisa Schreiber DATE: October 14, 2018 TIME: 2:05 PM PAGER/CONTACT #: [phone] [facility] CBC and Differentialon 10-14 Abs Baso 0.07 k/uL Normal <0.11 [facility] Comment on above: Performed By: #### C BCDIF ####[facility] [facility]., [place] [phone] Abs Johnston 0.68 k/uL Normal <0.87 [facility] Comment on above: Performed By: #### C BCDIF ####[facility] [facility]., [place] [phone] Abs Neut 5.32 k/uL Normal 1.45-7.50 [facility] Comment on above: Performed By: #### C BCDIF ####[address] [place] [phone] Absolute nRBC <0.01 Normal <0.01 [facility] Comment on above: Performed By: #### C BCDIF ####[address] [place] [phone] Basophils/100 WBC (Bld) 0.9 % Normal [facility] Comment on above: Performed By: #### C BCDIF ####[address] [place] [phone] DTYPE Auto Diff Normal [facility] Comment on above: Performed By: #### C BCDIF ####[address] [place] [phone] Eosinophils #/vol (Bld) 0.19 10*3/uL Normal <0.46 [facility] Comment on above: Performed By: #### C BCDIF ####[address] [place] [phone] Eosinophils/100 WBC (Bld) 2.3 % Normal [facility] Comment on above: Performed By: #### C BCDIF ####[address] [phone] Erythrocyte distribution width Ratio (RBC) 12.0 % Normal 11.5-15.0 [facility] Comment on above: Performed By: #### C BCDIF ####[address] [place] [phone] Hematocrit Volume Fraction (Bld) 42.9 % Normal 36.0-46.0 [facility] Comment on above: Performed By: #### C BCDIF ####[address] [place] [phone] Hemoglobin mass conc (Bld) 14.0 g/dL Normal 11.5-15.5 [facility] Comment on above: Performed By: #### C BCDIF ####[address] [place] [phone] Lymphocytes #/vol (Bld) 1.92 10*3/uL Normal 1.00-4.00 [facility] Comment on above: Performed By: #### C BCDIF ####[address] [place] [phone] Lymphocytes/100 WBC (Bld) 23.5 % Normal [facility] Comment on above: Performed By: #### C BCDIF ####[address] [place] [phone] MCH Entitic mass (RBC) 30.2 pG Normal 26.0-34.0 [facility] Comment on above: Performed By: #### C BCDIF ####[address] [place] [phone] MCHC mass conc (RBC) 32.6 g/dL Normal 30.5-36.0 [facility] Comment on above: Performed By: #### C BCDIF ####[address] [place] [phone] MCV Entitic volume (RBC) 92.5 fL Normal 80.0-100.0 [facility] Comment on above: Performed By: #### C BCDIF ####[address] [place] [phone] Monocytes/100 WBC (Bld) 8.3 % Normal [facility] Comment on above: Performed By: #### C BCDIF ####[address] [place]., [place] [phone] Neutrophils/100 WBC (Bld) 65.0 % Normal [facility] Comment on above: Performed By: #### C BCDIF ####[address] [place] [phone] NRBCs 0.0 /100 WBC Normal 0 [facility] Comment on above: Performed By: #### C BCDIF ####[address] [place]., [place] [phone] Platelet mean volume Entitic volume (Bld) 11.4 fL Normal 9.0-12.7 [facility] Comment on above: Performed By: #### C BCDIF ####[address] [place] [phone] Platelets #/vol (Bld) 294 10*3/uL Normal 150-400 [facility] Comment on above: Performed By: #### C BCDIF ####[address] [place]., [place] [phone] RBC #/vol (Bld) 4.64 10*6/uL Normal 3.90-5.20 [facility] Comment on above: Performed By: #### C BCDIF ####[address] [place] [phone] WBC #/vol (Bld) 8.18 10*3/uL Normal 3.70-11.00 [facility] Comment on above: Performed By: #### C BCDIF ####[address] [place]., [place] [phone] HISTORY PHYSICALon 9 HISTORY PHYSICAL HNO ID: [id number] Author: Mariajose Edmondson Service: Gynecology Author Type: Physician Type: HANDP Filed: 10/14/2018 7:46 AM Note Text: MIX MILL TENDER H And P SERVICE DATE: 10/14/2018 SERVICE [...] : Negative for dysuria, frequency and incontinence MIX MILL TENDER: Negative for abnormal vaginal bleeding, abnormal vaginal [...] in ED Rectovaginal: deferred Extremities: No edema PROSTHETICS LAB TECHNICIAN: Ao x 3 Impression/Recommen dations 28 year old G 3 P 3 with LLQ pain suspected PID PLAN: 1. Continue triple antibiotics ampicillin + gentamycin and clindamycin 2. Will folow up with cultures 3. Repeat CBC today AM 4. Possible discharge today PM SIGNATURE: Mariajose Edmondson MD PATIENT NAME: Felisa Schreiber DATE: October 14, 2018 TIME: 7:[address] [facility] NURSING PROGon 10-14-2018 Protein mass conc HNO ID: [id number] Author: Carol (Rn) KENIA Gonzalez Service: (none) Author Type: Registered Nurse Type: Nursing Progress Note Filed: 10/14/2018 6:30 PM Note Text: Nursing Progress Note Patient Name: Felisa Schreiber Patient Location: [place] [address] [address]* Daily Note: 0800: Assumed care of pt. [...] note was completed by: Carol Gonzalez RN [facility] PLAN OF CAREon 10-14-2018 PLAN OF CARE HNO ID: [id number] Author: Babs Lu (Dye Line Operator) Service: (none) Author Type: Stewardess Supervisor Type: Plan of Care Filed: 10/14/2018 1:23 PM Note Text: DENTAL OFFICE RECEPTIONIST BEDSIDE DELIVERY SURVEY 1. Patient to use [facility] Bedside Delivery - YES 2. If fax, patient would like us to fax prescriptions to Pharmacy of choice a. Pharmacy: b. Location: c. Phone: 3. Insurance card on file - YES 4. Credit card for payment - N/A No prescriptions yet. Please page upon discharge. [facility] CASE MGT INIT ASSESon 2018 CASE MGT INIT [place] HNO ID: [id number] Author: Prince (Rn) KNEIA Sargent Service: Care Management Author Type: Registered Nurse Type: Care Mgt Initial Assessment Filed: 10/13/2018 9:02 AM Note Text: CARE MANAGEMENT: ASSESSMENT AND DISCHARGE PLAN SERVICE DATE: 10/13/2018 SERVICE TIME: 0845 PRIMARY CARE PHYSICIAN: No primary care provider on file. Phone: None ADMISSION STATUS: Observation Needs Prior to Discharge: None MEDICAL: Patient/Representat margie Stated Goals: To have reduction in symptoms To return home to life as it was Health Insurance: [place] - Health Issues Impacting Discharge Plan: ovarian abcess Last Admission Date: none Is this Within the Past 30 days? No Advance Directive: Current Advance Directive: None Engine Generator Assembler Attempted to Assist with AD Completion: Yes [...] did not score > 3 FUNCTIONAL AND COGNITIVE/BEHAVIORA L PRIOR TO ADMISSION: Baseline Mental Status: Alert AND Oriented, Person, Place , Time and Situation Functional Status: Independent Does Patient Currently Receive Any Community Services or Home Care? None Equipment Prior to Admission: None Has the Patient Been in a Usp Facility in the Past 30 days? No [...] 0 I feel financially burdened by my atv-ce-odoiil expenses for my prescription medication: Disagree completely [...] other than being in tx with [facility] [phone] with plans to return once cleared FREEDOM OF CHOICE EXPLAINED: Yes 10/13/18-pt Preference: return to rehab POTENTIAL TRANSITION PLANS Rehab Facility Met with pt at bedside. Discussed needs PROCESSING CLERK and any anticipated upon dc. From [facility] [phone] with plans to return once cleared . Provided [place] [facility] Choice and [facility] information. Received checklist How to Best Manage Your Health. No concerns expressed at this time. SIGNATURE: Prince Sargent RN PATIENT NAME: Felisa Schreiber DATE: October 13, 2018 TIME: 8:57 AM PAGER/CONTACT #: [phone] Normal [facility] CBCon 10-13-2018 Absolute nRBC <0.01 Normal <0.01 [facility] Comment on above: Performed By: #### C BC, CMP ####[address] [place] [phone] Erythrocyte distribution width Ratio (RBC) 12.0 % Normal 11.5-15.0 [facility] Comment on above: Performed By: #### C BC, CMP ####[address] [place] [phone] Hematocrit Volume Fraction (Bld) 39.9 % Normal 36.0-46.0 [facility] Comment on above: Performed By: #### C BC, CMP ####[address] [place] [phone] Hemoglobin mass conc (Bld) 13.2 g/dL Normal 11.5-15.5 [facility] Comment on above: Performed By: #### C BC, CMP ####[address] [place] [phone] MCH Entitic mass (RBC) 30.2 pG Normal 26.0-34.0 [facility] Comment on above: Performed By: #### C BC, CMP ####[address] [place] [phone] MCHC mass conc (RBC) 33.1 g/dL Normal 30.5-36.0 [facility] Comment on above: Performed By: #### C BC, CMP ####[address] [place] [phone] MCV Entitic volume (RBC) 91.3 fL Normal 80.0-100.0 [facility] Comment on above: Performed By: #### C BC, CMP ####[address] [place]., [place] [phone] Platelet mean volume Entitic volume (Bld) 11.6 fL Normal 9.0-12.7 [facility] Comment on above: Performed By: #### C BC, CMP ####[address] [place]., [place] [phone] Platelets #/vol (Bld) 304 10*3/uL Normal 150-400 [facility] Comment on above: Performed By: #### C BC, CMP ####[address] [place]., [place] [phone] RBC #/vol (Bld) 4.37 10*6/uL Normal 3.90-5.20 [facility] Comment on above: Performed By: #### C BC, CMP ####[address] [place]., [place] [phone] WBC #/vol (Bld) 9.93 10*3/uL Normal 3.70-11.00 [facility] Comment on above: Performed By: #### C BC, CMP ####[address] [place]., [place] [phone] Comp Metabolic Panelon 10-13 Albumin mass conc 4.5 g/dL Normal 4.0-4.9 [facility] Comment on above: Performed By: #### C BC, CMP ####[address] [place]., [place] [phone] ALP enzyme act/vol 66 U/L Normal 34-123 [facility] Comment on above: Performed By: #### C BC, CMP ####[address] [place]., [place] [phone] ALT enzyme act/vol 14 U/L Normal 0-33 [facility] Comment on above: Performed By: #### C BC, CMP ####[address] [place]., [place] [phone] Anion gap molar conc 13 mmol/L Normal 0-15 [facility] Comment on above: Performed By: #### C BC, CMP ####[address] [place]., [place] [phone] AST enzyme act/vol 14 U/L Normal 0-32 [facility] Comment on above: Performed By: #### C BC, CMP ####[address] [place]., [place] [phone] Bilirubin mass conc 0.5 mg/dL Normal 0.2-1.3 [facility] Comment on above: Performed By: #### C BC, CMP ####[address] [place]., [place] [phone] Calcium mass conc 9.8 mg/dL Normal 8.5-10.2 [facility] Comment on above: Performed By: #### C BC, CMP ####[address] [place]., [place] [phone] Chloride molar conc 103 mmol/L Normal 98-107 [facility] Comment on above: Performed By: #### C BC, CMP ####[address] [place]., [place] [phone] CO2 molar conc 26 mmol/L Normal 22-29 [facility] Comment on above: Performed By: #### C BC, CMP ####[address] [place]., [place] [phone] Creatinine mass conc 0.67 mg/dL Normal 0.51-0.95 [facility] Comment on above: Performed By: #### C BC, CMP ####[facility] [place] [address] [place] [phone] eGFR- Amer. >60 Normal >60 [facility] Comment on above: Performed By: #### C BC, CMP ####[address] [place] [phone] GFR/1.73 sq M predicted among non-blacks MDRD vol rate/area (S/P/Bld) mL/min/{1.73_m2} Normal >60 [facility] Comment on above: Result Comment: eGFR (Estimated GFR) Units of measure: mL/min/1.73 meters squared eGFR is derived from the 4 variable MDRD equation for glomerular filtration rate (GFR) based on a stable serum creatinine, gender, and age. According to KDOQI guidelines, an eGFR <60 mL/min/1.73m2 is sufficient to diagnose a patient with chronic kidney disease. Performed By: #### C BC, CMP ####[address] [place]., [place] [phone] Glucose mass conc 75 mg/dL Normal 74-99 [facility] Comment on above: Performed By: #### C BC, CMP ####[address] [place]., [place] [phone] Potassium molar conc 4.2 mmol/L Normal 3.4-4.5 [facility] Comment on above: Performed By: #### C BC, CMP ####[address] [place] [phone] Protein mass conc 8.4 g/dL Normal 6.6-8.7 [facility] Comment on above: Performed By: #### C BC, CMP ####[address] [place] [phone] Sodium molar conc 142 mmol/L Normal 136-144 [facility] Comment on above: Performed By: #### C BC, CMP ####[address] [place]., [place] [phone] Urea nitrogen mass conc 13 mg/dL Normal 6-20 [facility] Comment on above: Performed By: #### C BC, CMP ####[facility] [facility]., [place] [phone] NURSING PROGon 10-13-2018 Protein mass conc HNO ID: [id number] Author: Reina John (Rn) KENIA Encarnacion Service: (none) Author Type: Registered Nurse Type: Nursing Progress Note Filed: 10/14/2018 8:21 AM Note Text: Nursing Progress Note Patient Name: Felisa Schreiber Patient Location: [id number]/[facility] [place] U-045* Daily Note:1930 Patient resting in bed,alert and oriented x 3. Independent. 2200 Medicated for pain. 0000 Sleeping,no signs of distress. [address] Edmondson.CBC with diff ordered. This note was completed by: Reina Encarnacion RN Normal [facility] Basic Metabolic Panlon 10-12 Anion gap molar conc 12 mmol/L Normal 0-15 [facility] Comment on above: Performed By: #### C BCDIF, BMP ####[facility] [facility]., [place] [phone] Calcium mass conc 10.1 mg/dL Normal 8.5-10.2 [facility] Comment on above: Performed By: #### C BCDIF, BMP ####[facility] [facility]., [place] [phone] Chloride molar conc 103 mmol/L Normal 98-107 [facility] Comment on above: Performed By: #### C BCDIF, BMP ####[facility] [facility] [place]., [place] [phone] CO2 molar conc 24 mmol/L Normal 22-29 [facility] Comment on above: Performed By: #### C BCDIF, BMP ####[address] [place] [phone] Creatinine mass conc 0.70 mg/dL Normal 0.51-0.95 [facility] Comment on above: Performed By: #### C BCDIF, BMP ####[address] [place] [phone] eGFR- Amer. >60 Normal >60 [facility] Comment on above: Performed By: #### C BCDIF, BMP ####[address] [place] [phone] GFR/1.73 sq M predicted among non-blacks MDRD vol rate/area (S/P/Bld) mL/min/{1.73_m2} Normal >60 [facility] Comment on above: Result Comment: eGFR (Estimated GFR) Units of measure: mL/min/1.73 meters squared eGFR is derived from the 4 variable MDRD equation for glomerular filtration rate (GFR) based on a stable serum creatinine, gender, and age. According to KDOQI guidelines, an eGFR <60 mL/min/1.73m2 is sufficient to diagnose a patient with chronic kidney disease. Performed By: #### C BCDIF, BMP ####[address] [place] [phone] Glucose mass conc 85 mg/dL Normal 74-99 [facility] Comment on above: Performed By: #### C BCDIF, BMP ####[address] [place] [phone] Potassium molar conc 4.5 mmol/L Normal 3.4-4.5 [facility] Comment on above: Performed By: #### C BCDIF, BMP ####[address] [place] [phone] Sodium molar conc 139 mmol/L Normal 136-144 [facility] Comment on above: Performed By: #### C BCDIF, BMP ####[facility] [facility]., [place] [phone] Urea nitrogen mass conc 11 mg/dL Normal 6-20 [facility] Comment on above: Performed By: #### C BCDIF, BMP ####[facility] [facility]., [place] [phone] Blood Cultureon 10-12-2018 Bacteria identified Cx Nom (Bld) Sp. Request/Comment: - The blood culture bottles are underfilled. Adding volume lower or higher than the 8 to 10 mL per bottle, which is the manufacturers recommended volume, may adversely affect the recovery and/or detection of organisms. 10.2 CC Culture Result - No growth [address] [facility] Comment on above: Performed By: #### B LCUL ####[place] [address] [place] [phone] Bacteria identified Cx Nom (Bld) Sp. Request/Comment: - The blood culture bottles are underfilled. Adding volume lower or higher than the 8 to 10 mL per bottle, which is the manufacturers recommended volume, may adversely affect the recovery and/or detection of organisms. 4.7 CC Culture Result - No growth [address] [facility] Comment on above: Performed By: #### B LCUL ####[facility] [place], [place] [phone] CBC and Differentialon 10-12 Abs Baso 0.06 k/uL Normal <0.11 [facility] Comment on above: Performed By: #### C BCDIF, BMP ####[facility] [facility]., [place] [phone] Abs Johnston 0.82 k/uL Normal <0.87 [facility] Comment on above: Performed By: #### C BCDIF, BMP ####[facility] [facility]., [place] [phone] Abs Neut 9.83 k/uL High 1.45-7.50 [facility] Comment on above: Performed By: #### C BCDIF, BMP ####[address] [place] [phone] Absolute nRBC <0.01 Normal <0.01 [facility] Comment on above: Performed By: #### C BCDIF, BMP ####[address] [place] [phone] Basophils/100 WBC (Bld) 0.5 % Normal [facility] Comment on above: Performed By: #### C BCDIF, BMP ####[address] [phone] DTYPE Auto Diff Normal [facility] Comment on above: Performed By: #### C BCDIF, BMP ####[address] [place] [phone] Eosinophils #/vol (Bld) 0.13 10*3/uL Normal <0.46 [facility] Comment on above: Performed By: #### C BCDIF, BMP ####[address] [place] [phone] Eosinophils/100 WBC (Bld) 1.0 % Normal [facility] Comment on above: Performed By: #### C BCDIF, BMP ####[address] [place] [phone] Erythrocyte distribution width Ratio (RBC) 11.9 % Normal 11.5-15.0 [facility] Comment on above: Performed By: #### C BCDIF, BMP ####[address] [phone] Hematocrit Volume Fraction (Bld) 40.3 % Normal 36.0-46.0 [facility] Comment on above: Performed By: #### C BCDIF, BMP ####[address] [place] [phone] Hemoglobin mass conc (Bld) 13.1 g/dL Normal 11.5-15.5 [facility] Comment on above: Performed By: #### C BCDIF, BMP ####[address] [place] [phone] Lymphocytes #/vol (Bld) 1.82 10*3/uL Normal 1.00-4.00 [facility] Comment on above: Performed By: #### C BCDIF, BMP ####[address] [phone] Lymphocytes/100 WBC (Bld) 14.4 % Normal [facility] Comment on above: Performed By: #### C BCDIF, BMP ####[address] [place] [phone] MCH Entitic mass (RBC) 29.8 pG Normal 26.0-34.0 [facility] Comment on above: Performed By: #### C BCDIF, BMP ####[address] [place] [phone] MCHC mass conc (RBC) 32.5 g/dL Normal 30.5-36.0 [facility] Comment on above: Performed By: #### C BCDIF, BMP ####[address] [place] [phone] MCV Entitic volume (RBC) 91.6 fL Normal 80.0-100.0 [facility] Comment on above: Performed By: #### C BCDIF, BMP ####[address] [place] [phone] Monocytes/100 WBC (Bld) 6.5 % Normal [facility] Comment on above: Performed By: #### C BCDIF, BMP ####[address] [place] [phone] Neutrophils/100 WBC (Bld) 77.6 % Normal [facility] Comment on above: Performed By: #### C BCDIF, BMP ####[address] [place]., [place] [phone] NRBCs 0.0 /100 WBC Normal 0 [facility] Comment on above: Performed By: #### C BCDIF, BMP ####[address] [place]., [place] [phone] Platelet mean volume Entitic volume (Bld) 12.7 fL Normal 9.0-12.7 [facility] Comment on above: Performed By: #### C BCDIF, BMP ####[address] [place] [phone] Platelets #/vol (Bld) 269 10*3/uL Normal 150-400 [facility] Comment on above: Result Comment: [facility] le checked for a clot. Performed By: #### C BCCYRUSF, BMP ####[address] [place] [phone] RBC #/vol (Bld) 4.40 10*6/uL Normal 3.90-5.20 [facility] Comment on above: Performed By: #### C BCDIF, BMP ####[address] [place]., [place] [phone] WBC #/vol (Bld) 12.66 10*3/uL High 3.70-11.00 [facility] Comment on above: Performed By: #### C BCDIF, BMP ####[address] [place]., [place] [phone] ED NOTEon 10-12-2018 ED NOTE HNO ID: [id number] Author: Dahlia Sun) KENIA Montes De [place]ca Service: (none) Author Type: Registered Nurse Type: ED Notes Filed: 10/12/2018 9:11 PM Note Text: Report given to Arash 440-1 [facility] ED NOTE HNO ID: [id number] Author: Dahlia Sun) KENIA [place] Service: (none) Author Type: Registered Nurse Type: ED Notes Filed: 10/12/2018 9:11 PM Note Text: Pharmacy sent Clindamycin down to the ED and stated to start that first. [facility] ED NOTE HNO ID: [id number] Author: Dahlia GrullonRn) KENIA Montes DeO ca Service: (none) Author Type: Registered Nurse Type: ED Notes Filed: 10/12/2018 5:37 PM Note Text: Pt. To ultrasound. [facility] ED NOTE HNO ID: [id number] Author: Dahlia Montes De [place]ca RN Service: (none) Author Type: Registered Nurse Type: ED Notes Filed: 10/12/2018 5:38 PM Note Text: PA at bedside performing pelvic exam. [facility] ED NOTE HNO ID: [id number] Author: Carey Hernández LPN Service: (none) Author Type: LICENSED NURSE Type: ED Notes Filed: 10/12/2018 4:58 PM Note Text: Annika PALUMBO at bedside assessing pt. [facility] ED NOTE HNO ID: [id number] Author: Carey Hernández LPN Service: (none) Author Type: LICENSED NURSE Type: ED Notes Filed: 10/12/2018 4:58 PM Note Text: Clean catch urine specimen obtained and sent. [facility] ED NOTE HNO ID: [id number] Author: Carey Hernández LPN Service: (none) Author Type: LICENSED NURSE Type: ED Notes Filed: 10/12/2018 4:49 PM Note Text: Pt. Assisted to restroom in attempt to provide urine specimen. Pt. Having unprotected sex, states chance of . [facility] ED NOTE HNO ID: [id number] Author: Carey Hernández LPN Service: (none) Author Type: LICENSED NURSE Type: ED Notes Filed: 10/12/2018 4:50 PM Note Text: Pt. Arrived via EMS from [facility] for Left Lower Quadrant Abdominal Pain that [...] up, bed in locked and low position [facility] ED NOTE HNO ID: [id number] Author: Last (Medic) Mari Service: (none) Author Type: Informal Waiter/Waitress and Stewardess Supervisor Type: ED Notes Filed: 10/12/2018 4:42 PM Note Text: Bed: ED-20 Expected date: Expected time: Means of arrival: Comments: [facility] ED PROV NOTEon 10-12-2018 Protein mass conc HNO ID: [id number] Author: Tarsha Jim Service: Emergency Medicine Author Type: Physician Sliding Joint Maker Type: ED Provider Notes Filed: 10/13/2018 3:12 [...] yesterday. She is in drug treatment at [facility]. She has been there since the . [...] pain. Musculoskeletal: Negative. Skin: Negative. Neurological: Negative. Psychiatric/Behavio ral: Negative. Physical Exam BP 97/57 Pulse 87 [...] Labs Ordered and Reviewed URINALYSIS WITH MICROSCOPIC (AK,AV,EU,FV,HL,FRANCOIS, MM,SP) - Abnormal; Notable for the following: Result Value Ref Range Clarity Cloudy (*) Clear Bacteria Present (*) 0 /HPF Crystal SEE COMMENT (*) 0 /HPF All other components within normal limits CBC + AUTO DIFF (AK,AV,EU,FV,HL,FRANCOIS, MM,SP) - Abnormal; Notable for the following: WBC 12.66 (*) 3.70 - 11.00 k/uL Abs Neut (ANC) 9.83 (*) 1.45 - 7.50 k/uL All other components within normal limits HCG URINE - ED(POC) - Normal BASIC METABOLIC PANEL (AK,AV,EU,FV,HL,FRANCOIS, MM,SP) RESERVE BLOOD SPECIMEN GC/CHLAMYDIA DNA DETECTION (AK,AV,EU,FV,HL,FRANCOIS, MM,SP) TRICHOMONAS PREP (AK,AV,EU,FV,HL,FRANCOIS, MM,SP) URINE CULTURE (AK,AV,EU,FV,HL,FRANCOIS, MM,SP) Procedures ED Course / Clinical Impression Patient is given Toradol 30 mg IMIs also given a nicotine patch Clinical Impressions as of Oct 13 1509 Tubo-ovarian abscess Leukocytosis, unspecified type MDM / Disposition / Plan As soon as I got the ultrasound report I spoke to Dr. Smith FIBER TECHNICIAN on-call I discussed the patient and was [...] comfortable with staying. I relayed to the FIBER TECHNICIAN that the patient should not be getting narcotics that she is in drug treatment the patient does not want any. Patient states she is more comfortable with the Toradol she received The patient was ADMITTED TO: Regular nursing floor. Condition at time of disposition: stable SIGNATURE: JR Hernandez) Diandra 10/12/182118 Mitesh Shelton 10/12/18 2241 Tarsha Toro) Jim 10/13/[address] [facility] GC/Chlamydia Amplifon 2018 Chlamydia Amplif Positive Critically abnormal [facility] Comment on above: Result Comment: In l ow prevalence populations, the likelihood of a false positive may be higher than a true positive. Retesting by another method may be appropriate for patients who lack risk factors or clinical signs and symptoms consistent with infection. Performed By: #### G CCT ####[place] [address] [place], [place] [phone] [phone] GC Amplification Negative Normal [facility] Comment on above: Performed By: #### G CCT ####[address] [phone] [phone] GC/Chlam Amp Source Vaginal Normal [facility] Comment on above: Performed By: #### G CCT ####[address] [place]., [place] [phone] Health Institute[address] [place], [place] [phone] Trichomonas Prepon 9 Trichomonas Prep Smear Result - Negative for Trichomonas vaginalis antigen Normal [facility] Comment on above: Performed By: #### T MIRLANDE #### [facility] [address] [place] [address] US DOPPLER COMPLETEon 2018 US DOPPLER COMPLETE [...] of ovarian torsion. Suspect left tubo-ovarian abscess. Talent Assistant: CATRACHITA Transcribe Date/Time: Oct 12 2018 6:27P Dictated by : KUN DRUMMOND MD This examination was interpreted and the report reviewed and electronically signed by: KUN DRUMMOND MD on Oct 12 2018 6:46PM EST [id number] [facility] US FEMALE PELVIS TRANSABD LT Don [...] of ovarian torsion. Suspect left tubo-ovarian abscess. Talent Assistant: CATRACHITA Transcribe Date/Time: Oct 12 2018 6:27P Dictated by : KUN DRUMMOND MD This examination was interpreted and the report reviewed and electronically signed by: KUN DRUMMOND MD on Oct 12 2018 6:46PM EST [id number] [facility] US FEMALE PELVIS TRANSVAGon 10-12-2018 US FEMALE PELVIS [...] structure. Although there is no hyperemia the gilse are thick and irregular which is concerning for tubo-ovarian abscess. Pelvis free fluid: Small free fluid in the cul-de-sac IMPRESSION: No evidence of ovarian torsion. Suspect left tubo-ovarian abscess. Talent Assistant: [facility] Transcribe Date/Time: Oct 12 2018 6:27P Dictated by : KUN DRUMMOND MD This examination was interpreted and the report reviewed and electronically signed by: KUN DRUMMOND MD on Oct 12 2018 6:46PM EST [id number] Normal [facility] Urinalysis with Microscopico n 10-12-2018 Bacteria LM.HPF #/area (Urine sed) Present Critically abnormal 0 [facility] Comment on above: Performed By: #### U AWMIC #### [facility] [address] [facility] [place] [address] Bilirubin, Urine Negative Normal Negative [facility] Comment on above: Performed By: #### U AWMIC #### [place] [id number] [facility] [place] [address] Cast SEE COMMENT Normal 0 [facility] Comment on above: Result Comment: 0 Performed By: #### U AWMIC #### [facility] [address] [facility] [place] [address] Clarity Nom (U) Cloudy Critically abnormal Clear [facility] Comment on above: Performed By: #### U AWMIC #### [address] [place] [address] Color Nom (U) Yellow Normal Yellow [facility] Comment on above: Performed By: #### U AWMIC #### [address] [place] [address] Crystals LM Nom (Urine sed) SEE COMMENT Critically abnormal 0 [facility] Comment on above: Result Comment: Many Amorphous Performed By: #### U AWMIC #### [address] [place] [address] Epithelial cells LM.HPF #/area (Urine sed) SEE COMMENT Normal [facility] Comment on above: Result Comment: Mode rate Performed By: #### U AWMIC #### [address] [place] [address] Glucose Ql (U) Negative Normal Negative [facility] Comment on above: Performed By: #### U AWMIC #### [address] [place] [address] Hemoglobin/Blood,Ur Negative Normal Negative [facility] Comment on above: Performed By: #### U AWMIC #### [address] [place] [address] Ketones Ql (U) Negative Normal Negative [facility] Comment on above: Performed By: #### U AWMIC #### [address] [place] [address] Leukest Negative Normal Negative [facility] Comment on above: Performed By: #### U AWMIC #### [address] [place] [address] Nitrite Ql (U) Negative Normal Negative [facility] Comment on above: Performed By: #### U AWMIC #### [facility] [address] [facility] [place] [address] pH (Bld) 8.0 Normal 4.6-8.0 [facility] Comment on above: Performed By: #### U AWMIC #### [facility] [address] [facility] [place] [address] Protein mass conc (U) Negative Normal Negative [facility] Comment on above: Performed By: #### U AWMIC #### [facility] [address] [facility] [place] [address] RBC #/vol (U) 0-3 Normal 0-3 [facility] Comment on above: Performed By: #### U AWMIC #### [facility] [address] [facility] [place] [address] Specific [place], Ur 1.020 Normal 1.001-1.035 [facility] Comment on above: Performed By: #### U AWMIC #### [facility] [address] [facility] [place] [address] Urobilinogen Qn (U) Normal Normal Normal [facility] Comment on above: Performed By: #### U AWMIC #### [facility] [address] [facility] [place] [address] WBC #/vol (Bld) 0-5 Normal 0-5 [facility] Comment on above: Performed By: #### U AWMIC #### [facility] [address] [facility] [place] [address] Urine Cultureon 10-12-2018 Bacteria identified Cx Nom (U) Culture Result - 50,000 - <100,000 CFU/ml Escherichia coli --> ABNORMAL ALERT ORGANISM: Escherichia coli METHOD: Minimum inhibitory concentration(Vitek ) Antibiotic Interp CLARISSA Status Ampicillin SUSCEPTIBLE 4 [...] SUSCEPTIBLE <=16 F Cefepime SUSCEPTIBLE <=1 F Piperacillin/Tazoba c SUSCEPTIBLE <=4 F Ampicillin Sulbact SUSCEPTIBLE <=2 F Ceftriaxone SUSCEPTIBLE <=1 F Meropenem SUSCEPTIBLE <=0.25 F Ertapenem SUSCEPTIBLE <=0.5 F Critically [facility] Comment on above: Performed By: #### U RCUL ####[facility] [place], [place] [phone] Vital Signs Date Time Vital Sign Value Performing Clinician Facility 05-03-2025 21:00-0400 Diastolic blood pressure 89 mm[Hg] Dr. Ángel Smith DO Work Phone: [phone] [place] [address] 05-03-2025 21:00-0400 Heart rate 80 /min Dr. Ángel Smith DO Work Phone: [phone] [place] [address] 05-03-2025 21:00-0400 SaO2% (BldA) [Mass fraction] 100 % Dr. Ángel Smith DO Work Phone: [facility] [place] [facility] 05-03-2025 21:00-0400 Systolic blood pressure 132 mm[Hg] Dr. Ángel Smith DO Work Phone: [phone] [place] [address] 05-03-2025 20:31-0400 Body temperature 98.3 [degF] Dr. Ángel Smith DO Work Phone: [phone] [place] [address] 05-03-2025 20:31-0400 Respiratory rate 18 /min Dr. Ángel Smith DO Work Phone: [phone] [place] [address] 05-03-2025 18:35-0400 Body height 154.[address] Ángel Smith DO Work Phone: [phone] [place] [address] 05-03-2025 18:35-0400 Body mass index (BMI) [Ratio] 19.2 kg/m2 Dr. Ángel Smith DO Work Phone: [facility] [place] [facility] 05-03-2025 18:35-0400 Body weight 46.[address] Ángel Smith DO Work Phone: [facility] [place] [facility] 10-30-2022 13:15-0500 Body height 154.9 cm No Pcp Required [facility] 10-30-2022 13:15-0500 Body temperature 97.88 [degF] No Pcp Required [facility] 10-30-2022 13:15-0500 Diastolic blood pressure 78 mm[Hg] No Pcp Required [facility] 10-30-2022 13:15-0500 Heart rate 94 /min No Pcp Required [facility] 10-30-2022 13:15-0500 SaO2% (BldA) [Mass fraction] 95 % No Pcp Required [facility] 10-30-2022 13:15-0500 Systolic blood pressure 124 mm[Hg] No Pcp Required [facility] 07-07-2021 13:20-0400 Body height 154.9 cm No Pcp Required [facility] 07-07-2021 13:20-0400 Body temperature 98.06 [degF] No Pcp Required [facility] 07-07-2021 13:20-0400 Diastolic blood pressure 69 mm[Hg] No Pcp Required [facility] 07-07-2021 13:20-0400 Heart rate 82 /min No Pcp Required [facility] 07-07-2021 13:20-0400 Respiratory rate 16 /min No Pcp Required [facility] 07-07-2021 13:20-0400 SaO2% (BldA) [Mass fraction] 100 % No Pcp Required [facility] 07-07-2021 13:20-0400 Systolic blood pressure 109 mm[Hg] No Pcp Required [facility] 06-20-2021 12:56-0400 Body height 154.9 cm No Pcp Required [facility] 06-20-2021 12:56-0400 Body temperature 98.06 [degF] No Pcp Required [facility] 06-20-2021 12:56-0400 Diastolic blood pressure 82 mm[Hg] No Pcp Required [facility] 06-20-2021 12:56-0400 Heart rate 88 /min No Pcp Required [facility] 06-20-2021 12:56-0400 SaO2% (BldA) [Mass fraction] 98 % No Pcp Required [facility] 06-20-2021 12:56-0400 Systolic blood pressure 130 mm[Hg] No Pcp Required [facility] 05-31-2021 16:04-0400 Body height 154.9 cm No Pcp Required [facility] 05-31-2021 16:04-0400 Body temperature 97.7 [degF] No Pcp Required [facility] 05-31-2021 16:04-0400 Diastolic blood pressure 81 mm[Hg] No Pcp Required [facility] 05-31-2021 16:04-0400 Heart rate 79 /min No Pcp Required [facility] 05-31-2021 16:04-0400 Respiratory rate 16 /min No Pcp Required [facility] 05-31-2021 16:04-0400 SaO2% (BldA) [Mass fraction] 98 % No Pcp Required [facility] 05-31-2021 16:04-0400 Systolic blood pressure 123 mm[Hg] No Pcp Required [facility] 11-06-2019 16:59-0500 BMI (Body Mass Index) 26.45 kg/m2 [facility] 11-06-2019 16:59-0500 Body Temperature 97.59 [degF] [facility] 11-06-2019 16:59-0500 Body weight 63.5 kg [facility] 11-06-2019 16:59-0500 BP Diastolic 74 mm[Hg] [facility] 11-06-2019 16:59-0500 BP Systolic 114 mm[Hg] [facility] 11-06-2019 16:59-0500 Height 154.9 cm [facility] 11-06-2019 16:59-0500 Pulse (Heart Rate) 96 /min [facility] 11-06-2019 16:59-0500 Pulse Oximetry 100 % Abdi Tello [facility] 11-06-2019 16:59-0500 Respiratory Rate 18 /min Abdi Tello [facility] 11-04-2019 21:35-0500 Pulse (Heart Rate) 76 /min Leila [facility] 11-04-2019 21:35-0500 Pulse Oximetry 98 % [facility] 11-04-2019 21:34-0500 BP Diastolic 81 mm[Hg] [facility] 11-04-2019 21:34-0500 BP Systolic 116 mm[Hg] [facility] 11-04-2019 18:57-0500 BMI (Body Mass Index) 26.83 kg/m2 [facility] 11-04-2019 18:57-0500 Body Temperature 98.1 [degF] [facility] 11-04-2019 18:57-0500 Body weight 64.41 kg [facility] 11-04-2019 18:57-0500 Height 154.9 cm [facility] 11-04-2019 18:57-0500 Respiratory Rate 16 /min [facility] 11-04-2019 18:12-0500 Pulse Oximetry 99 % Marty Apple [facility] 11-04-2019 18:09-0500 Body Temperature 98.1 [degF] Marty Apple [facility] 11-04-2019 18:09-0500 BP Diastolic 85 mm[Hg] Marty Apple [facility] 11-04-2019 18:09-0500 BP Systolic 129 mm[Hg] Marty Apple [facility] 11-04-2019 18:09-0500 Pulse (Heart Rate) 98 /min Marty Apple [facility] 11-04-2019 18:09-0500 Respiratory Rate 16 /min Marty Apple [facility] 10-21-2019 17:44-0500 BP Diastolic 83 mm[Hg] [facility] 10-21-2019 17:44-0500 BP Systolic 129 mm[Hg] [facility] 10-21-2019 17:41-0500 BMI (Body Mass Index) 26.45 kg/m2 [facility] 10-21-2019 17:41-0500 Body Temperature 98.01 [degF] [facility] 10-21-2019 17:41-0500 Body weight 63.5 kg [facility] 10-21-2019 17:41-0500 Height 154.9 cm [facility] 10-21-2019 17:41-0500 Pulse (Heart Rate) 98 /min [facility] 10-21-2019 17:41-0500 Pulse Oximetry 96 % [facility] 10-21-2019 17:41-0500 Respiratory Rate 16 /min [facility] 09-19-2019 16:06-0500 BMI (Body Mass Index) 26.45 kg/m2 [facility] 09-19-2019 16:06-0500 Body Temperature 97.81 [degF] [facility] 09-19-2019 16:06-0500 Body weight 63.5 kg [facility] 09-19-2019 16:06-0500 BP Diastolic 90 mm[Hg] [facility] 09-19-2019 16:06-0500 BP Systolic 125 mm[Hg] [facility] 09-19-2019 16:06-0500 Height 154.9 cm [facility] 09-19-2019 16:06-0500 Pulse (Heart Rate) 90 /min [facility] 09-19-2019 16:06-0500 Pulse Oximetry 98 % [facility] 09-19-2019 16:06-0500 Respiratory Rate 18 /min [facility] 03-07-2019 11:33-0400 BMI (Body Mass Index) 25.7 kg/m2 Dianna [facility] 03-07-2019 11:33-0400 Body Temperature 98.2 [degF] Dianna [facility] 03-07-2019 11:33-0400 BP Diastolic 66 mm[Hg] Dianna [facility] 03-07-2019 11:33-0400 BP Systolic 123 mm[Hg] Dianna [facility] 03-07-2019 11:33-0400 Height 154.9 cm Dianna [facility] 03-07-2019 11:33-0400 Pulse (Heart Rate) 94 /min [facility] 03-07-2019 11:33-0400 Pulse Oximetry 98 % Dianna [facility] 03-07-2019 11:33-0400 Respiratory Rate 16 /min Dianna Sanford [facility] 03-07-2019 11:33-0400 Weight 61.69 kg Dianna [facility] Encounters Encounter Date Encounter Type Care Provider Facility Start: 05-03-2025 Evaluation and manag ement of inpatient Dr. Hui Berry MD -Medical Surgical 3 Work Phone: Start: 06-11-2024 End: 06-12-2024 Emergency department patient visit PHYSICIAN GODWIN [facility] Start: 10-30-2022 End: 10-30-2022 Emergency department patient visit Omar Elliott [facility] Start: 10-06-2022 End: 10-06-2022 Emergency department patient visit PAC Omar Humphreys [facility] Facility:[id number] Start: 07-07-2021 End: 07-07-2021 Emergency department patient visit Malathi Aguirre [facility] [facility] 05 Start: 06-20-2021 End: 06-20-2021 Emergency department patient visit Omar Elliott [facility] Start: 05-31-2021 End: 05-31-2021 Emergency department patient visit Omar Elliott [facility] 02 Start: 07-05-2020 End: 07-05-2020 Patient encounter procedure GONZALO BOBBY [facility] Start: 11-06-2019 End: 11-06-2019 Emergency department patient visit PHYSICIAN GODWIN [facility] Start: 11-06-2019 End: 11-06-2019 Emergency department patient visit Abdi Tello Work Phone: [facility] Emergency Department Comment on above: Nausea and vomiting, intractability of vomiting not specified, unspecified vomiting type (Primary Dx) Start: 11-04-2019 End: 11-04-2019 Emergency department patient visit Leila Juarez Work Phone: [facility] Emergency Department Comment on above: Less than 8 weeks ge station of (Primary Dx) Start: 11-04-2019 End: 11-04-2019 Emergency department patient visit Marty Apple Work Phone: [facility] Emergency Department Comment on above: Abdominal pain mamadouin g in first trimester (Primary Dx); Gastroenteritis Start: 10-21-2019 End: 10-21-2019 Emergency department patient visit PHYSICIAN NO [facility] Start: 10-21-2019 End: 10-21-2019 Emergency department patient visit Michael FriedmanChani Cecilia Work Phone: [facility] Emergency Department Comment on above: Acute UTI (Primary D x) Start: 09-19-2019 End: 09-19-2019 Emergency department patient visit PHYSICIAN NO [facility] Start: 09-19-2019 End: 09-19-2019 Emergency department patient visit Abdi Ghoshn Adam Baervell Work Phone: [facility] Emergency Department Comment on above: Lightheadedness (Jodi neil Dx); Hypertension, unspecified type; Acute pharyngitis, unspecified etiology Start: 03-07-2019 End: 03-07-2019 Emergency department patient visit PHYSICIAN NO [facility] Start: 03-07-2019 End: 03-07-2019 Emergency department patient visit Dianna Sanford Work Phone: [facility] Emergency Department Comment on above: Acute UTI (Primary D x) Start: 10-29-2018 End: 10-30-2018 [facility] Start: 10-12-2018 End: 10-14-2018 Evaluation and management of inpatient [facility] Procedures Date Procedure Procedure Detail Performing Clinician Start: 05-03-[address] Ángel Smith DO Work Phone: Start: 05-03-2025 Methadone measurement, urine Dr. Ángel Smith DO Work Phone: Comment on above: If confirmation test ing is needed, a separate order will be required to send out testing to the reference laboratory. Start: 11-04-2019 Basic metabolic 2000 panel - Serum or Plasma Susi Maryse Pena Work Phone: Start: 11-04-2019 Choriogonadotropin [Units/volume] in Serum or Plasma Susi Maryse Pena Work Phone: Start: 11-04-2019 Complete blood count with white cell differential, automated Susi Pena Work Phone: Start: 11-04-2019 Complete blood count with white cell differential, manual Susi Pena Work Phone: Start: 11-04-2019 Urnls dip stick/tabl et rgnt auto w/o microscopy Marty Apple Work Phone: Start: 11-04-2019 End: 11-04-2019 Choriogonadotropin ( test) [Presence] in Urine Marty Apple Work Phone: Start: 10-21-2019 Choriogonadotropin ( test) [Presence] in Urine [facility] Start: 10-21-2019 Urnls dip stick/tabl et rgnt auto w/o microscopy [facility] Start: 09-19-2019 Choriogonadotropin ( test) [Presence] in Urine [facility] Start: 09-19-2019 Iaadiadoo streptococ cus group a [facility] Start: 09-19-2019 Urnls dip stick/tabl et rgnt auto w/o microscopy [facility] Start: 09-19-2019 12 lead ECG Abdi Vargas Work Phone: Start: 03-07-2019 Basic metabolic 2000 panel - Serum or Plasma Dianna Sanford Work Phone: Start: 03-07-2019 Complete blood count with white cell differential, automated Dianna Sanford Work Phone: Start: 03-07-2019 Complete blood count with white cell differential, manual Dianna Sanford Work Phone: Start: 03-07-2019 Hepatic function 200 0 panel - Serum or Plasma Dianna Sanford Work Phone: Start: 03-07-2019 Choriogonadotropin ( test) [Presence] in Urine Dianna Sanford Work Phone: Start: 03-07-2019 Urinalysis Dianna Sanford Work Phone: Start: 01-27-2019 Adult depression scr eening assessment Abdi Tello Start: 01-27-2019 Microscopic observat ion [Identifier] in Cervix by Cyto stain Dianna Sanford Plan of Treatment Date Care Activity Detail Author Start: 05-03-2025 Serologic test for syphilis [facility] Start: 05-03-2025 [facility] Start: 05-03-2025 Admission procedure [facility] Start: 05-03-2025 Verification routine [facility] Start: 05-03-2025 Hospital admission, emergency, from emergency room, medical nature [facility] Start: 01-28-2024 Screening for malign ant neoplasm of cervix PAP SMEAR [facility] Start: 01-28-2020 Depression screening using PHQ-9 (Patient Health Questionnaire 9) score DEPRESSION SCREENING (PHQ9) [facility] Start: 01-28-2020 History and physical examination, annual for health maintenance Wellness Visit [facility] Start: 05-25-2019 Influenza vaccinatio n given [facility] Start: 1990 Depression screening using PHQ-9 (Patient Health Questionnaire 9) score DEPRESSION SCREENING (PHQ9) [facility] Start: 1990 Tetanus vaccination TETANUS EVERY 10 YR [facility] End: 03-07-2019 Bacteria identified Aer cx Nom (Unsp spec) Urine Aerobic Culture Microbiology Routine Once for 1 Occurrences starting 03/07/2019 until 03/07/2019 [facility] Comment on above: Once for 1 Occurrenc es starting 03/07/2019 until 03/07/2019 Bacteria identified Aer cx Nom (Unsp spec) [facility] End: 10-21-2019 Bacteria identified Aer cx Nom (Unsp spec) Urine Aerobic Culture Microbiology Routine Once for 1 Occurrences starting 10/21/2019 until 10/21/2019 [facility] Comment on above: Once for 1 Occurrenc es starting 10/21/2019 until 10/21/2019 End: 11-06-2019 Clostridium difficile toxin assay Clostridium difficile Testing Microbiology Routine Once for 1 Occurrences starting 11/06/2019 until 11/06/2019 [facility] Comment on above: Once for 1 Occurrenc es starting 11/06/2019 until 11/06/2019 End: 09-19-2019 S. pyogenes Org specific cx Ql (Throat) Strep A Culture, Throat Microbiology Routine Once for 1 Occurrences starting 09/19/2019 until 09/19/2019 [facility] Comment on above: Once for 1 Occurrenc es starting 09/19/2019 until 09/19/2019 S. pyogenes Org spec ific cx Ql (Throat) Strep A Culture, Throat Microbiology Routine 09/19/2019 5:39 PM EST [facility] Transvaginal obstetr ic ultrasonography US Obstetric Transvaginal Imaging YONATAN 11/04/2019 9:37 PM EST [facility] Payers Date Payer Category Payer Medicaid [employer] MEDICAID [employer] MEDICAID xxxxxxxxxxx 2018-Present xxxxxxxxxxx [id number] 2018 Medicaid [id number] 2018 Medicaid [id number] 1990 Unknown [id number] 1988 Unknown [id number] 1988 Unknown [id number] 1988 Unknown [id number] 1988 Unknown [id number] 1988 Unknown [id number] 1988 Unknown [id number] 1988 Unknown [id number] 1988 Unknown [id number] Unknown [employer] Social History Date Type Detail Facility Start: 03-07-2019 End: 05-03-2025 Tobacco smoking status TXIS Current every day smoker [facility] History of tobacco use Cigarette Sm[facility] Start: 03-07-2019 End: 11-06-2019 Cigarettes smoked current (pack per day) - Reported [facility] Sex Assigned At Not on file [facility] Start: 09-19-2019 End: 11-06-2019 Alcohol intake Ex-drinker (finding) [facility] Tobacco smoking consumption unknown [facility] Start: 1990 Sex Assigned At Female [facility] Goals Date Patient Goal Desired Activity /State Comment on above: Mild to moderate exe rcise under the guidance of your physician is usually safe and encouraged. Evaluation note Note Date & Type Note Facility Evaluation note No assessment information availa ble [facility] Work Phone: Reason for referral (narrative) Note Date & Type Note Facility Reason for referral (narrative) No reason for referral information available [facility] Work Phone: Summary Purpose Family History No Family History Records FoundNo Family History Records FoundNo Family History Records FoundNo Family History Records FoundNo Family History Records FoundNo Family History Records FoundNo Family History Records FoundNo Family History Records Found Advance Directives Documents on File Type Date Recorded 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 Advance Directives and Livin g Will 03/07/2019 12:03 PM Documents on File Type Date Recorded 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 No May 03, 2025 7:19pm Hospital Course Note HNO ID: [id number] Author: Lauren Edmondson Service: Gynecology Author Type: [...] Everywhere. * UTI (Urinary Tract Infection): Female (Swiss) documented in this encounter* Instructions* Abdi Tello [...] cannot be sent through Care Everywhere. * [place] ED PCP ACCEPTING NEW PATIENTS IN [facility] * Lightheadedness or Faintness (Swiss) * Sore Throat (Swiss) * Hypertension (Swiss) documented in this encounter* Attachments The following attachments cannot be sent through Care Everywhere. * UTI (Urinary Tract Infection): Female (Swiss) documented in this encounter* Attachments The following attachments cannot be sent through Care Everywhere. * : Abdominal Pain (Swiss) documented in this encounter* Instructions* Abdi Tello [...] through Care Everywhere. * Nausea and Vomiting (Swiss) * : Abdominal Pain (Swiss) documented in this encounter Assessments Diagnosis Acute [...] of vomiting not specified, unspecified vomiting type Chief Complaint and Reason for Visit Chief Complaint Admit Date ACUTE OPIATE WITHDRAWAL May 03 9:18pm Additional Source Comments INFORMATION SOURCE (unrecogn ized section and content) DATE [facility]ATED [facility] DATE CREATED AUTHOR AUTHOR'S ORGANIZ ATION 11/12/2018 [facility] DATE CREATED AUTHOR AUTHOR'S ORGANIZ ATION 05/18/2019 [facility] DATE CREATED AUTHOR AUTHOR'S ORGANIZ ATION 11/08/2019 [facility] DATE CREATED AUTHOR AUTHOR'S ORGANIZ ATION 07/05/2020 [facility] DATE CREATED AUTHOR AUTHOR'S ORGANIZ ATION 10/31/2022 [facility] DATE CREATED AUTHOR AUTHOR'S ORGANIZ ATION 11/02/2022 [facility] DATE CREATED AUTHOR AUTHOR'S ORGANIZ ATION [facility] Reason for Visit (unrecogniz ed section and content) Reason Comments Back Pain Reason Comments Dizziness Sore Throat Reason Comments Back Pain lower Reason Comments Emesis Reason Comments Abdominal Pain States pain is LLQ Reason Comments Nausea Routine Visit Spotting since night. Had w/previous . Natalie Dean RN - 03/07/2019 12:48 PM Dianna Faith Jr., MD - 03/07/2019 11:40 AM Natalie Astorga RN - 03/07/2019 11:37 AM Natalie Astorga RN - 03/07/2019 11:31 AM EDT ED Notes (unrecognized secti on and content) PT ambulates per self to lobby. Pt alert, oriented and stable at ky. ED PROVIDER NOTE [facility] EMERGENCY [facility] NAME: Felisa Schreiber AGE: 28 y.o. : 1990 VISIT DATE: 03/07/2019 CSN: [id number] PCP: Physician No Chief Complaint Patient presents with Back Pain Patient states for the past 24 hours she has had back pain, nausea, and chills. She is also had urinary frequency. She states the last time I felt like this, I had an infection in my ovary and had to get admitted to [facility]. Past Medical History: Diagnosis Date Anxiety Depression [...] file Gets together: Not on file Attends christianity service: Not on file Active member of [...] Yellow Clarity, Urine Cloudy (A) Clear Specific [place] 1.015 1.005 - 1.025 pH, Urine 6.0 [...] YONATAN to schedule appointment in 1-[address] [place], [place] [id number] Contact information for after-discharge care Follow-up information [...] Associated Order(s): EKG 12-lead ED PROVIDER NOTE [facility] EM[facility] NAME: Felisa Schreiber AGE: 29 y.o. : 1990 VISIT DATE: 09/19/2019 CSN: [id number] PCP: Physician No Chief Complaint Patient presents [...] file Gets together: Not on file Attends christianity service: Not on file Active member of [...] Print Route: Oral Abdi Tello MD 09/19/19 0830 PRESENTS TO THE ED FOR DIZZINESS, LIGHT-HEADED, SORE THROAT, AND COUGH SINCE YESTERDAY. documented in this encounter Presents to ED c/o bilateral lower back pain x3 days. ED PROVIDER NOTE [facility] NAME: Felisa Schreiber AGE: 29 y.o. : 1990 VISIT DATE: 10/21/2019 CSN: [id number] PCP: Physician No Chief Complaint Patient presents [...] file Gets together: Not on file Attends christianity service: Not on file Active member of [...] ED Disposition ED Disposition Condition Comment Discharge Fortino Schreiber discharged to home/self care in stable condition. Follow-up Information 1. Primary care provider of your choosing from provided list. Contact information for after-discharge care Follow-up information has not been specified. New Prescriptions cephALEXin (KEFLEX) 500 MG capsule Take 1 (one) capsule (500 mg total) by mouth 4 (four) times a day for 7 days . Michael Brooks DO 10/21/19 4018 documented in this encounter Pt. Transferred to [facility]. Pt. To transfer to [facility] via private auto. Pt. Arrives with nausea and pain in left lower quad of abdomin. Pt. Believes she has a tubal and wants checked for . documented in this encounter Pt back from ultrasound [facility] ED Provider Note: NAME: Felisa Schreiber 29 y.o. CSN: [id number] PCP: Physician No History: Chief Complaint: Abdominal [...] file Gets together: Not on file Attends christianity service: Not on file Active member of [...] Procedure Abnormality Status --------- ------ CBC Auto Differential[[id number]] Final result Please view results for these [...] ensure that there is no occult ectopic. [facility] Workstation ID: [id number] Procedures: Procedures ED Course / Medical Decision Making: Patient's ultrasound did not show anything that looked specifically like an ectopic I think this is just a very early . 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 States has taken 4 preg tests, a;; negative but has not had period yet this month. Describes pain as as pulling. documented in this encounter Patient given specimen container w/sticker to take home to obtain specimen. Will drop-off at [facility]. Presents to the ED c/o nausea and requesting phenergan. Patient was seen here 2 days ago and sent to [facility] for an ultrasound. She was discharge from [...] you with the consent of such client. Care Teams (unrecognized sec tion and content) Team Status: Active Member Role/Relationship Status Dates Barb Love [employer]PR[employer]CTS OPERATOR, BYPRODUCTS OPERATOR-C Primary Care Provider Active Team Status: Active Member Role/Relationship Status Dates Dr. Ángel Smith , Referring Provider Active S tart: May 03, 2025 Dr. Ángel Smith , DO Emergency Provider Active S tart: May 03, 2025 Barb Love [employer]PR[employer] OPERATOR, BYPRODUCTS OPERATOR-C Primary Care Provider Active Start: May 03, 2025 Dr. Hui Berry MD Admit Provider Active St art: May 03, 2025 Dr. Hui Berry MD Attending Provider Active Start: May 03, 2025 Goals (unrecognized section and content) Goals may be documented in a n alternate section FOR RECORDS PERTAINING TO PATIENTS WHO ARE [...] BE BASED ON THE PRIMARY CLINICAL RECORDS. [employer] provides no warranty or guarantee of the accuracy or completeness of information in this document.
[2025-05-03 22:01] VITALS: BMI 19.3
[2025-05-03 22:04] VITALS: BP 123/72; PULSE 89; RESP 16; TEMP 36.7; O2SAT 97
[2025-05-03] MEDS: Lactated Ringers 1,000 ML 125 ML IV (22:35)
--- OUTSIDE RECORDS SUMMARY | 2025-05-03 22:35 | XMS RPT_ITS | CCD ---
Author Organization [facility] Care Team Providers Care Adjunct English Instructor Name Role Phone MARIAJOSE EDMONDSON Admitting Unavailable [...] Dr. Ángel Smith DO Emergency Provider Ivan RETAIL EVENT COORDINATOR-CBarb Primary Care Provider [phone] Kristi MCGOWAN, Dr. Hui John Admit Provider Dr. Hui Berry MD Attending Provider Medications Current Medications Medication Drug Class(es) Dates Sig (Normalized) Sig (Original) brompheniramine maleate 0.4 mg/ml / dextromethorphan hydrobromide 2 mg/ml / pseudoephedrine hydrochloride 6 mg/ml oral solution (5 sources) alpha-Adrenergic Agonist, Uncompetitive B-mbsmcl-V-aspartat e Receptor Antagonist, Sigma-1 Agonist Start: 05-31-2021 take 5 mL by mouth four times daily brompheniramine/p seudoephedrine/de xtromethorphan [id number]/5 mL oral syrup ; 5 milliliter(s) orally [...] Auto (Unsp spec) [#/Vol] 1.00 10*3/uL 0.83-4.[address] [facility] Absolute neutrophil countOrd ered By: Ángel Smith on 05-03-2025 Neutrophils (Bld) [#/Vol] 11.4 10*3/uL High 2.0-7.[address] [facility] Amphetamine detection with 1 000 ng/mL as cutoffOrdered By: Ángel Smith on 05-03-2025 Amphetamines Screen method >1000 ng/mL Ql (U) Negative < 200 ng/mL [facility] Anion gap in Serum or Plasma Ordered By: Ángel Smith on 05-03-2025 Anion gap [Moles/Vol] 15 mmol/L 5-15 [facility] Automated lymphocyte count a s percentage of total leukocytesOrdered By: Ángel Smith on 05-03-2025 Lymphocytes/100 WBC Auto (Unsp spec) 7.7 % Low 19-[address] [facility] BUN/creatinine ratioOrdered By: Ángel Ungveronica on 05-03-2025 Urea nitrogen/Creatinine [Mass ratio] 12.1 mg/mg 10-[address] [facility] Basophil percentageOrdered B y: Ángel Smith on 05-03-2025 Basophils/100 WBC (Bld) 0.3 % 0-1 [facility] Bilirubin, totalOrdered By: Ángel Smith on 05-03-2025 Bilirubin [Mass/Vol] 0.49 mg/dL 0.00-1.30 [facility] Carbon dioxide, total [Moles /volume] in Central venous bloodOrdered By: Ángel Smith on 05-03-2025 CO2 [Moles/Vol] 19.1 mmol/L Low 21.0-32.[address] [facility] Chloride assayOrdered By: Serena Smith on 05-03-2025 Chloride [Moles/Vol] 103 mmol/L 98-108 [facility] Eosinophil percentageOrdered By: Ángel Smith on 05-03-2025 Eosinophils/100 WBC (Bld) 0.0 % 0-[address] [facility] Erythrocyte distribution wid th ratioOrdered By: Ángel Smith on 05-03-2025 Erythrocyte distribution width (RBC) [Ratio] 11.9 % 11.6-14.[address] [facility] Erythrocyte distribution wid th standard deviationOrdered By: Ángel Ungveronica on 05-03-2025 Erythrocyte distribution width (RBC) [Ratio] 38.2 fl 35.1-43.[address] [facility] Glomerular filtration rate ( GFR) estimation/1.73 sq m using serum, plasma, or whole bOrdered By: Ángel Smith on 05-03-2025 GFR/1.73 sq M.predicted among non-blacks MDRD (S/P/Bld) [Vol rate/Area] 115 mL/min/{1.73_m2} >[address] [facility] Comment on above: mL/min/1.73m2 CKD-EP I Creatinine Equation (2020) Hematocrit Auto (Bld) [Volum e fraction]Ordered By: Ángel Smith on 05-03-2025 Hematocrit (Bld) [Volume fraction] 40.6 % 37-[address] [facility] Hemoglobin measurementOrdere d By: Ángel Smith on 05-03-2025 Hemoglobin (Bld) [Mass/Vol] 14.0 g/dL 12.0-15.[address] [facility] Immature granulocytes/100 WB C Auto (Bld)Ordered By: Ángel Smith on 05-03-2025 Immature granulocytes/100 WBC (Bld) 0.300 % 0.0-0.[address] [facility] Comment on above: IG% - Immature Granu locytes (promyelocytes, myelocytes and metamyelocytes) > 1% indicates that a LEFT SHIFT is Present. Laboratory - Chemistry and C hemistry - challengeOrdered By: Ángel Smith on 05-03-2025 AST [Catalytic activity/Vol] 21 U/L <[address] [facility] MCV (mean corpuscular volume ) determinationOrdered By: Ángel Smith on 05-03-2025 MCV (RBC) [Entitic vol] 86.9 fL 81-99 [facility] Mean corpuscular hemoglobin (MCH) determinationOrdered By: Ángel Smith on 05-03-2025 MCH (RBC) [Entitic mass] 30.0 pg 27.0-32.[address] [facility] Mean corpuscular hemoglobin concentration (MCHC) determinationOrdered By: Ángel Smith on 05-03-2025 MCHC (RBC) [Mass/Vol] 34.5 g/dL 32-36 [facility] Mean platelet volume determi nationOrdered By: Ángel Smith on 05-03-2025 Platelet mean volume (Bld) [Entitic vol] 11.2 fL 6.2-12.[address] [facility] Monocyte percentageOrdered B y: Ángel Smith on 05-03-2025 Monocytes/100 WBC (Bld) 4.1 % 0-10 [facility] Neutrophil percentageOrdered By: Ángel Smith on 05-03-2025 Neutrophils/100 WBC (Bld) 87.6 % High 47-[address] [facility] No Panel InformationOrdered By: Ángel Smith on 05-03-2025 Urine Buprenorphine Qualitative Negative < 200 ng/mL [facility] Urine Oxycodone Screen Negative < 100 ng/mL [facility] Nucleated red blood cell per centageOrdered By: Ángel Smith on 05-03-2025 Nucleated RBC/100 WBC (Bld) [Ratio] 0 % 0-[address] [facility] Platelet countOrdered By: Serena Smith on 05-03-2025 Platelets (Bld) [#/Vol] 221 10*3/uL 150-[address] [facility] Potassium measurement (mass/ volume)Ordered By: Ángel Smith on 05-03-2025 Potassium (Unsp spec) [Mass/Vol] 3.8 mmol/L 3.3-5.[address] [facility] Quantitative urine opiates m easurementOrdered By: Ángel Smith on 05-03-2025 Opiates Ql (U) Negative < 300 ng/mL [facility] RBC Auto (Bld) [#/Vol]Ordere d By: Ángel Smith on 05-03-2025 RBC (Bld) [#/Vol] 4.67 10*6/uL 4.2-5.4 [facility] Screening urine fentanyl wendy surementOrdered By: Ángel Smith on 05-03-2025 fentaNYL Screen Ql (U) Positive [facility] Comment on above: If confirmation test ing is needed, a separate order will be required to send out testing to the reference laboratory. Serum beta-hCG test, qualita tiveOrdered By: Ángel Smith on 05-03-2025 Beta HCG ( test) Ql Negative [facility] Serum creatinine measurement (mass/volume)Ordered By: Ángel Smith on 05-03-2025 Creatinine [Mass/Vol] 0.70 mg/dL 0.70-1.20 [facility] Serum globulin measurementOr dered By: Ángel Smith on 05-03-2025 Globulin (S) [Mass/Vol] 2.9 g/dL 2.2-4.2 [facility] Serum glucose measurement (m ass/volume)Ordered By: Remus Smith on 05-03-2025 Glucose [Mass/Vol] 128 mg/dL High 70-99 [facility] Serum or plasma alanine tian otransferase (ALT) measurementOrdered By: Remus Ungveronica on 05-03-2025 ALT [Catalytic activity/Vol] 18 U/L <[address] [facility] Serum or plasma albumin preeti urement (mass/volume)Ordered By: Remus Ungur on 05-03-2025 Albumin [Mass/Vol] 4.6 g/dL 3.5-5.0 [facility] Serum or plasma albumin/glob ulin mass ratioOrdered By: Remus Ungveronica on 05-03-2025 Albumin/Globulin [Mass ratio] 1.6 {ratio} 0.9-2.[address] [facility] Serum or plasma alkaline bobbi sphatase measurementOrdered By: Remus Ungveronica on 05-03-2025 ALP [Catalytic activity/Vol] 66 U/L 35-[address] [facility] Serum or plasma calcium preeti urement (mass/volume)Ordered By: Remus Ungveronica on 05-03-2025 Calcium [Mass/Vol] 9.9 mg/dL 7.6-11.0 [facility] Serum or plasma ethanol preeti urement (mass/volume)Ordered By: Remus Ungveronica on 05-03-2025 Ethanol [Mass/Vol] mg/dL <10.1 [facility] Comment on above: This test is for med ical purposes only. The legal definition of intoxication varies according to local law. Serum or plasma urea nitroge n measurement (mass/volume)Ordered By: Remus Luis on 05-03-2025 Urea nitrogen [Mass/Vol] 8 mg/dL 4-[address] [facility] Sodium levelOrdered By: Remu s Luis on 05-03-2025 Sodium [Moles/Vol] 138 mmol/L 133-145 [facility] Total proteinOrdered By: Rem us Ungur on 05-03-2025 Protein [Mass/Vol] 7.6 g/dL 5.9-8.4 [facility] Urine benzodiazepine levelOr dered By: Remus Ungveronica on 05-03-2025 Benzodiazepines Ql (U) Negative < 200 ng/mL [facility] Urine cocaine levelOrdered B y: Remus Ungur on 05-03-2025 Cocaine Ql (U) Positive < 300 ng/mL [facility] Comment on above: If confirmation test ing is needed, a separate order will be required to send out testing to the reference laboratory. Urine umfkz-[id number]-lsxburtvztghmp abinol (THC) measurementOrdered By: Remus Ungur on 05-03-2025 Cannabinoids Screen Ql (U) Negative < 50 ng/mL [facility] Urine phencyclidine (PCP) de tectionOrdered By: Remus Ungur on 05-03-2025 Phencyclidine Ql (U) Negative < 25 ng/mL [facility] White blood cell (WBC) count Ordered By: Remus Ungveronica on 05-03-2025 WBC (Bld) [#/Vol] 13.0 10*3/uL High 4.4-11.0 [facility] COVID-19/INFLUENZA A,B MOLEC ULARon 06-11-2024 SARS-CoV-2 (COVID-19) Ab IA Ql SARS-COV-2 (KATE) Detected INFLUENZA A (KATE) Not Detected INFLUENZA B (KATE) Not Detected Abnormal Not Detected [facility] Comment on above: Performed By: #### L [id number] #### [facility] [address] [address] Maxi Brian M.D. [id number] Provider Note - ED v3on 02-0 Provider [...] CARE RESULTS: Recent Lab Results: Nitrate positive tjynl-lh-bijd urinalysis will be sent for culture and sensitivity. VITAL SIGNS: T PRBP SpO2O2(LPM) %FiO2 Method 30-Oct-2022 11:15:[id number] 95RA [facility] MDM/ED COURSE: 1) acute cystitis with nitrate positive urine: Patient be treated empirically with Ceftin will await C&S, and call patient with results when available. Encouraged to push fluids 2) URI symptoms: Patient be treated supportively, encouraged to push fluids take [id number]-zrpbvnw medications as needed she agrees plan of [...] Updated: 30-Oct-2022 12:11 by Omar Elliott (PAC) [facility] URINE CULTURE,BACTERIALon URINE CULTURE,BACTERIAL PATIENT: FELISA SCHREIBER [facility]ATION: [facility]#: [id number] : 86 AGE: SEX: F ORDERED BY: [...] DEPENDENT NS=NONSUSCEPTIBLE X=REPORTED IN ERROR __ Normal [facility] Comment on above: Performed By: #### U [facility] #### [facility] [address] [place] [address] Provider Note - ED v3on 09-24 Provider [...] Instructions: null Drug Name: brompheniramine/pse udoephedrine/dextro methorphan [id number]/5 mL oral syrup Instructions: 5 milliliter(s) orally 4 times a day, As Needed -for congestion - for cough Drug Name: fluticasone 50 mcg/inh nasal spray Instructions: 50 microgram(s) in each nostril once a day SIGNIFICANT EVENTS: Past Surgical History Description:OPEN HEART SURGERY. 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: Is : no REVIEW OF SYSTEMS CONSTITUTIONAL: [...] SIGNS: T PRBP SpO2O2(LPM) %FiO2 Method 06-Oct-2022 10:01:[id number] 96RA MDM MDM/ED COURSE: 1) URI with [...] Last Updated: 06-Oct-2022 11:18 by Omar Elliott ([facility]) Normal [facility] COVID-19, MOLECULARon 2019 SARS-COV-2 RNA (ARCELIA) Not Detected Normal Not Detecte d [facility] Comment on above: Order Comment: Niesha Hwang [phone] Result Comment: This test was performed under [...] at the following links: For Healthcare Providers: https://www.fda.gov/media/802189/download For Patients: https://www.fda.gov/media/966813/download Performed By: #### L [id number] #### [facility] [address] [place] [address] Russ Olson M.D. [id number] [facility] 11-04-2019 Anion gap [Moles/Vol] 11 mmol/L 10 - 2 0 mmol/L [facility] Calcium [Mass/Vol] 8.8 mg/dL 8.4 - 10. 2 mg/dL [facility] Chloride [Moles/Vol] 104 mmol/L 98 - 10 8 mmol/L [facility] Creatinine [Mass/Vol] 0.69 mg/dL 0.40 - 1.10 [facility] GFR/1.73 sq M predicted among non-blacks MDRD (S/P/Bld) [Vol rate/Area] The eGFR should be used for monitoring renal function only and not for medication dosing. [facility] GFR/1.73 sq M.predicted CKD-EPI (S/P/Bld) [Vol rate/Area] 116 >=60 mL/min/1.73 m2 [facility] Glucose [Mass/Vol] 75 mg/dL 65 - 99 mg/dL [facility] HCO3 [Moles/Vol] 24 mmol/L 21 - 32 mmol/L [facility] Potassium [Moles/Vol] 3.3 mmol/L Low 3.5 - 5.1 mmol/L [facility] Sodium [Moles/Vol] 136 mmol/L 135 - 145 mmol/L [facility] Urea nitrogen [Mass/Vol] 10 mg/dL 8 - 25 mg/d L [facility] Urea nitrogen/Creatinine [Mass ratio] 14.5 mg/mg [facility] CBC WITH AUTO DIFFERENTIALon 11-04-2019 Basophils (Bld) [#/Vol] 0.05 10*3/uL [facility] Basophils/100 WBC (Bld) 0.6 % [facility] Eosinophils (Bld) [#/Vol] 0.12 10*3/uL [facility] Eosinophils/100 WBC (Bld) 1.4 % [facility] Erythrocyte distribution width (RBC) [Entitic vol] 13.3 % 11.6 - 14.8 % [facility] Hematocrit (Bld) [Volume fraction] 42.0 % 36 - 46 % [facility] Hemoglobin (Bld) [Mass/Vol] 14.4 g/dL 12 - 16 g/dL [facility] Immature granulocytes (Bld) [#/Vol] 0.03 10*3/uL [facility] Immature granulocytes/100 WBC (Bld) 0.30 % [facility] Comment on above: The IG parameter is the percentage of metamyelocytes, myelocytes, and promyelocytes. Lymphocytes (Bld) [#/Vol] 2.24 10*3/uL [facility] Lymphocytes/100 WBC (Bld) 25.7 % [facility] MCH (RBC) [Entitic mass] 31.8 pg 26 - 34 pg [facility] MCHC (RBC) [Mass/Vol] 34.3 g/dL 31 - 37 g/dL [facility] MCV (RBC) [Entitic vol] 92.7 fL 80 - 100 fL [facility] Monocytes (Bld) [#/Vol] 0.66 10*3/uL [facility] Monocytes/100 WBC (Bld) 7.6 % [facility] Neutrophils (Bld) [#/Vol] 5.63 10*3/uL [facility] Neutrophils/100 WBC (Bld) 64.4 % [facility] Nucleated RBC (Bld) [#/Vol] 0.00 10*3/uL [facility] Nucleated RBC/100 WBC (Bld) [Ratio] 0.0 % [facility] Platelet mean volume (Bld) [Entitic vol] 11.1 fL 9 - 15.5 fL [facility] Platelets (Bld) [#/Vol] 196 10*3/uL [facility] RBC (Bld) [#/Vol] 4.53 10*6/uL [facility] WBC (Bld) [#/Vol] 8.73 10*3/uL [facility] HCG (QUANTITATIVE)on 020 Beta HCG ( test) Ql (U) Males and non females: <5 mIU/mL Females during : 3-4 weeks 9-130 mIU/mL 4-5 weeks 75-2600 mIU/mL 5-6 weeks 850-20,800 mIU/mL 6-7 weeks 4000-100,200 mIU/mL 7-12 weeks 11,500-289,000 mIU/mL 12-16 weeks 18,300-137,000 mIU/mL 16-29 weeks 1,400-53,000 mIU/mL 29-41 weeks 940-60,000 mIU/mL [facility] HCG Qn 32 m[IU]/mL High [facility] Otheron 11-04-2019 Interpretation and review of laboratory results Abnormal [facility] POC , Urineon 11-04 HCG ( test) Ql (U) Positive Abnormal Negative [facility] Interpretation and review of laboratory results Abnormal [facility] HCG ( test) Ql (U) Positive Abnormal Negative [facility] Interpretation and review of laboratory results Abnormal [facility] Urinalysis Dipstick, Aut oon 11-04-2019 Bilirubin Ql (U) Negative Negative [facility] Glucose Ql (U) Negative Negative mg/dL [facility] Hemoglobin Ql (U) Negative Negative [facility] Interpretation and review of laboratory results Normal [facility] Ketones Ql (U) Negative Negative mg/dL [facility] Leukocyte esterase Test strip Ql (U) Negative Negative [facility] Nitrite Ql (U) Negative Negative [facility] pH (U) 6.5 [pH] [facility] Protein Ql (U) Negative Negative mg/dL [facility] Specific gravity (U) [Rel density] 1.020 [facility] Urobilinogen Qn (U) 1.0 mg/dL <2.0 [facility] POC , Urineon 10-21 Beta HCG ( test) Ql (U) Dilute urine specimens, as indicated by a low specific gravity (<1.010) may not contain financial foundations representative levels of hCG. If is still suspected, a serum test or repeat urine test using a first morning urine specimen should be considered. [facility] HCG ( test) Ql (U) Negative Negative [facility] Interpretation and review of laboratory results Normal [facility] POC Urinalysis Dipstick, Aut oon 10-21-2019 Bilirubin Ql (U) Negative Negative [facility] Glucose Ql (U) Negative Negative mg/dL [facility] Hemoglobin Ql (U) Trace-intact Abnormal Negative [facility] Interpretation and review of laboratory results Abnormal [facility] Ketones Ql (U) Negative Negative mg/dL [facility] Leukocyte esterase Test strip Ql (U) Trace Abnormal Negative [facility] Nitrite Ql (U) Positive Abnormal Negative [facility] pH (U) 6.5 [pH] [facility] Protein Ql (U) Negative Negative mg/dL [facility] Specific gravity (U) [Rel density] 1.025 [facility] Urobilinogen Qn (U) 0.2 mg/dL <2.0 [facility] ECG 12-LEADon 09-19-2019 Abdi Tello MD 09/19/2019 5:50 PM EKG 12-lead Date/Time: 09/19/2019 5:00 PM Performed by: Abdi Tello MD Authorized by: Abdi Tello MD Previous ECG: no previous ECG available Rhythm: sinus rhythm BPM: 82 Conduction: conduction normal ST Segments: ST segments normal QRS axis: normal T Waves: T waves normal Other: no other findings Clinical impression: normal ECG [facility] POC , Urineon 09-19 Beta HCG ( test) Ql (U) Dilute urine specimens, as indicated by a low specific gravity (<1.010) may not contain financial [employer] representative levels of hCG. If is still suspected, a serum test or repeat urine test using a first morning urine specimen should be considered. [facility] HCG ( test) Ql (U) Negative Negative [facility] Interpretation and review of laboratory results Normal [facility] POC Rapid Strep Aon 09-19-20 19 Interpretation and review of laboratory results Normal [facility] S. pyogenes Ag Ql (Throat) Negative Negative [facility] POC Urinalysis Dipstick, Aut oon 09-19-2019 Bilirubin Ql (U) Negative Negative [facility] Glucose Ql (U) Negative Negative mg/dL [facility] Hemoglobin Ql (U) Negative Negative [facility] Interpretation and review of laboratory results Normal [facility] Ketones Ql (U) Negative Negative mg/dL [facility] Leukocyte esterase Test strip Ql (U) Negative Negative [facility] Nitrite Ql (U) Negative Negative [facility] pH (U) 5.5 [pH] [facility] Protein Ql (U) Negative Negative mg/dL [facility] Specific gravity (U) [Rel density] 1.020 [facility] Urobilinogen Qn (U) 0.2 mg/dL <2.0 [facility] ealt BMPon 03-07-2019 Anion gap molar conc 12 mmol/L 10 - 20 mmol/L [facility] Calcium mass conc 8.8 mg/dL 8.4 - 10.2 mg/dL [facility] Chloride molar conc 105 mmol/L 98 - 108 mmol/L [facility] Creatinine mass conc 0.86 mg/dL 0.4 - 1 .1 mg/dL [facility] GFR/1.73 sq M predicted among non-blacks MDRD vol rate/area (S/P/Bld) The eGFR should be used for monitoring renal function only and not for medication dosing. [facility] GFR/1.73 sq M.predicted CKD-EPI vol rate/area (S/P/Bld) 91 >=60 mL/min/1.73 m2 [facility] Glucose mass conc 83 mg/dL 65 - 99 mg/dL [facility] HCO3 molar conc 25 mmol/L 21 - 32 mmol/L [facility] Potassium molar conc 3.5 mmol/L 3.5 - 5 .1 mmol/L [facility] Sodium molar conc 138 mmol/L 135 - 145 mmol/L [facility] Urea nitrogen mass conc 10 mg/dL 8 - 25 mg/dL [facility] Urea nitrogen/Creatinine mass ratio 11.6 mg/mg [facility] CBC WITH AUTO DIFFERENTIALon 03-07-2019 Basophils #/vol (Bld) 0.03 10*3/uL [facility] Basophils/100 WBC (Bld) 0.3 % [facility] Eosinophils #/vol (Bld) 0.03 10*3/uL [facility] Eosinophils/100 WBC (Bld) 0.3 % [facility] Erythrocyte distribution width Entitic volume (RBC) 11.8 % 11.6 - 14.8 % [facility] Hematocrit Volume Fraction (Bld) 37.7 % 36 - 46 % [facility] Hemoglobin mass conc (Bld) 12.8 g/dL 12 - 16 g/dL [facility] Immature granulocytes #/vol (Bld) 0.02 10*3/uL [facility] Immature granulocytes/100 WBC (Bld) 0.20 % [facility] Comment on above: The IG parameter is the percentage of metamyelocytes, myelocytes, and promyelocytes. Interpretation and review of laboratory results Abnormal [facility] Lymphocytes #/vol (Bld) 1.35 10*3/uL [facility] Lymphocytes/100 WBC (Bld) 13.3 % [facility] MCH Entitic mass (RBC) 30.0 pg 26 - 34 pg [facility] MCHC mass conc (RBC) 34.0 g/dL 31 - 37 g/dL [facility] MCV Entitic volume (RBC) 88.5 fL 80 - 100 fL [facility] Monocytes #/vol (Bld) 0.93 10*3/uL High [facility] Monocytes/100 WBC (Bld) 9.1 % [facility] Neutrophils #/vol (Bld) 7.81 10*3/uL High [facility] Neutrophils/100 WBC (Bld) 76.8 % [facility] Platelet mean volume Entitic volume (Bld) 11.0 fL 9 - 15.5 fL [facility] Platelets #/vol (Bld) 231 10*3/uL [facility] RBC #/vol (Bld) 4.26 10*6/uL [facility] WBC #/vol (Bld) 10.17 10*3/uL [facility] Hepatic Function Panel (LFT) on 03-07-2019 Albumin mass conc 3.8 g/dL 3.2 - 5.2 g/dL [facility] ALP enzyme act/vol 71 U/L 40 - 140 U/L [facility] ALT enzyme act/vol 16 U/L 14 - 65 U/L [facility] ealt AST enzyme act/vol 14 U/L 0 - 45 U/L [facility] Bilirubin mass conc 0.7 mg/dL 0 - 1.3 mg/dL [facility] Bilirubin.conjugated mass conc 0.1 mg/dL 0 - 0.4 mg/dL [facility] Protein mass conc 8.0 g/dL 6 - 8 g/dL [facility] Otheron 03-07-2019 Interpretation and review of laboratory results Normal [facility] URINALYSISon 03-07-2019 Bacteria Auto Ql (U) Many Abnormal None Se en /hpf [facility] Bilirubin Ql (U) Negative Negative [facility] th Clarity Refractometry automated Nom (U) Cloudy Abnormal Clear [facility] Color Nom (U) Yellow Colorless, Yellow [facility] Epithelial cells.squamous Auto #/area (Urine sed) 3 [facility] Glucose Automated test strip mass conc (U) Negative Negative mg/dL [facility] Hemoglobin Automated test strip Ql (U) Small Abnormal Negative [facility] Interpretation and review of laboratory results Abnormal [facility] Ketones mass conc (U) Negative Negati ve mg/dL [facility] Leukocyte esterase Automated test strip Ql (U) Small Abnormal Negative [facility] Mucus Auto #/area (Urine sed) Few Abnormal None Seen, Rare /lpf [facility] Nitrite Automated test strip Ql (U) Positive Abnormal Negative [facility] pH (U) 6.0 [pH] [facility] Protein mass conc (U) Negative Negati ve mg/dL [facility] RBC Auto #/area (Urine sed) 3 [facility] Specific gravity Relative Density (U) 1.015 [facility] Urobilinogen mass conc (U) <2.0 <2.0 mg/dL [facility] WBC Auto #/area (Urine sed) 60 High [facility] Microscopic examination is performed on all urinalysis samples and only positive findings are reported. The test for blood on the chemical analytic portion of urinalysis may also be positive due to hemoglobinuria and myoglobinuria and if red blood cells are present they are quantified by microscopic examination. [facility] Urine Pregnancyon 03-07-2019 HCG ( test) Ql (U) Negative Negative [facility] Interpretation and review of laboratory results Normal [facility] CNOVon 10-29-2018 CNOV Office Visit ([facility]) ---- FELISA SCHREIBER ([id number]) 1990 F Date Time Provider Department 10/29/18 2:30 PM MARIAJOSE EDMONDSON [facility] During your visit today, we [...] external genitalia normal, normal Bartholin's glands, urethra, Villalba's glands, no vulvar lesions, no cervical lesions, [...] Order(s):GC/CHLAMYD IA DNA DET [SQGCCAMP] Order #: [id number] Prescriptions as of 10/29/2018 Sig: DOXYCYCLINE MONOHYDRATE [...] by MARIAJOSE EDMONDSON MD on 10/29/18 [facility]-29-2018 Protein mass conc HNO ID: [id number] Author: Mariajose Edmondson Service: (none) Author Type: [...] external genitalia normal, normal Bartholin's glands, urethra, Villalba's glands, no vulvar lesions, no cervical lesions, [...] talking face to face. Mariajose Edmondson MD [facility] HEALTH 10-14-2018 ALLIED HEALTH HNO ID: [id number] Author: Sr Lisa Mcgee (Chaplain) Service: Spiritual Care Author Type: Road Roller Operator Type: Allied Health Filed: 10/14/2018 2:08 PM Note Text: SPIRITUAL CARE ASSESSMENT SERVICE DATE: 10/14/2018 SERVICE TIME: 1353 TYPE OF VISIT: Introductory Visit. Urgency of Visit: Routine. Visit was with: Patient . INITIAL ASSESSMENT VISIT: Additional Notes: Patient is resting and brief pastoral care introduction visit shared with patient. Pastoral care support and presence provided at bedside. Follow-up Notes: Informed patient of Road Roller Operator availability.. For immediate or Emergent need call PBX ([phone]), and ask to page for the Chaplains. For non emergent need call [phone] or submit an epic consult. SIGNATURE: Chaplain Jonatan PATIENT NAME: Felisa Schreiber DATE: October 14, 2018 TIME: 2:05 PM PAGER/CONTACT #: [phone] [facility] CBC and Differentialon 10-14 Abs Baso 0.07 k/uL Normal <0.11 [facility] Comment on above: Performed By: #### C BCDIF ####[facility] [facility]., [place] [phone] Abs Metcalfe 0.68 k/uL Normal <0.87 [facility] Comment on above: Performed By: #### C BCDIF ####[facility] [facility] [place] [phone] Abs Neut 5.32 k/uL Normal 1.45-7.50 [facility] Comment on above: Performed By: #### C BCDIF ####[address] [place] [phone] Absolute nRBC <0.01 Normal <0.01 [facility] Comment on above: Performed By: #### C BCDIF ####[address] [place] [phone] Basophils/100 WBC (Bld) 0.9 % Normal [facility] Comment on above: Performed By: #### C BCDIF ####[address] [place] [phone] DTYPE Auto Diff Normal [facility] Comment on above: Performed By: #### C BCDIF ####[address] [place] [phone] Eosinophils #/vol (Bld) 0.19 10*3/uL Normal <0.46 [facility] Comment on above: Performed By: #### C BCDIF ####[address] [place] [phone] Eosinophils/100 WBC (Bld) 2.3 % Normal [facility] Comment on above: Performed By: #### C BCDIF ####[address] [phone] Erythrocyte distribution width Ratio (RBC) 12.0 % Normal 11.5-15.0 [facility] Comment on above: Performed By: #### C BCDIF ####[address] [place] [phone] Hematocrit Volume Fraction (Bld) 42.9 % Normal 36.0-46.0 [facility] Comment on above: Performed By: #### C BCDIF ####[address] [place] [phone] Hemoglobin mass conc (Bld) 14.0 g/dL Normal 11.5-15.5 [facility] Comment on above: Performed By: #### C BCDIF ####[address] [place] [phone] Lymphocytes #/vol (Bld) 1.92 10*3/uL Normal 1.00-4.00 [facility] Comment on above: Performed By: #### C BCDIF ####[address] [place] [phone] Lymphocytes/100 WBC (Bld) 23.5 % Normal [facility] Comment on above: Performed By: #### C BCDIF ####[address] [place]., [place] [phone] MCH Entitic mass (RBC) 30.2 pG Normal 26.0-34.0 [facility] Comment on above: Performed By: #### C BCDIF ####[address] [place] [phone] MCHC mass conc (RBC) 32.6 g/dL Normal 30.5-36.0 [facility] Comment on above: Performed By: #### C BCDIF ####[address] [place] [phone] MCV Entitic volume (RBC) 92.5 fL Normal 80.0-100.0 [facility] Comment on above: Performed By: #### C BCDIF ####[address] [place] [phone] Monocytes/100 WBC (Bld) 8.3 % Normal [facility] Comment on above: Performed By: #### C BCDIF ####[address] [place]., [place] [phone] Neutrophils/100 WBC (Bld) 65.0 % Normal [facility] Comment on above: Performed By: #### C BCDIF ####[address] [place] [phone] NRBCs 0.0 /100 WBC Normal 0 [facility] Comment on above: Performed By: #### C BCDIF ####[address] [place]., [place] [phone] Platelet mean volume Entitic volume (Bld) 11.4 fL Normal 9.0-12.7 [facility] Comment on above: Performed By: #### C BCDIF ####[address] [place]., [place] [phone] Platelets #/vol (Bld) 294 10*3/uL Normal 150-400 [facility] Comment on above: Performed By: #### C BCDIF ####[address] [place]., [place] [phone] RBC #/vol (Bld) 4.64 10*6/uL Normal 3.90-5.[address] [facility] Comment on above: Performed By: #### C BCDIF ####[address] [place] [phone] WBC #/vol (Bld) 8.18 10*3/uL Normal 3.70-11.[address] [facility] Comment on above: Performed By: #### C BCDIF ####[address] [place]., [place] [phone] HISTORY PHYSICALon 9 HISTORY PHYSICAL HNO ID: [id number] Author: Mariajose Edmondson Service: Gynecology Author Type: Physician Type: HANDP Filed: 10/14/2018 7:46 AM Note Text: CATEGORY CONSULTANT H And P SERVICE DATE: 10/14/2018 SERVICE [...] : Negative for dysuria, frequency and incontinence CATEGORY CONSULTANT: Negative for abnormal vaginal bleeding, abnormal vaginal [...] in ED Rectovaginal: deferred Extremities: No edema REED REPAIRER: Ao x 3 Impression/Recommen dations 28 year old G 3 P 3 with LLQ pain suspected PID PLAN: 1. Continue triple antibiotics ampicillin + gentamycin and clindamycin 2. Will folow up with cultures 3. Repeat CBC today AM 4. Possible discharge today PM SIGNATURE: Mariajose Edmondson MD PATIENT NAME: Felisa Schreiber DATE: October 14, 2018 TIME: 7:37 AM [facility] NURSING PROGon 10-14-2018 Protein mass conc HNO ID: [id number] Author: Carol (Rn) KENIA Gonzalez Service: (none) Author Type: Registered Nurse Type: Nursing Progress Note Filed: 10/14/2018 6:30 PM Note Text: Nursing Progress Note Patient Name: Felisa Schreiber Patient Location: [place] [address] [address]* Daily Note: 0800: Assumed care of pt. [...] note was completed by: Carol Gonzalez RN [facility] PLAN OF CAREon 10-14-2018 PLAN OF CARE HNO ID: [id number] Author: Babs Lu (Silver Service Waiter) Service: (none) Author Type: Light Bulb Assembler Type: Plan of Care Filed: 10/14/2018 1:23 PM Note Text: APPOINTMENT CLERK BEDSIDE DELIVERY SURVEY 1. Patient to use [facility] Bedside Delivery - YES 2. If fax, patient would like us to fax prescriptions to Pharmacy of choice a. Pharmacy: b. Location: c. Phone: 3. Insurance card on file - YES 4. Credit card for payment - N/A No prescriptions yet. Please page upon discharge. [facility] CASE MGT INIT ASSESon 2018 CASE MGT INIT [place] HNO ID: [id number] Author: Prince (Rn) KENIA Sargent Service: Care [...] to life as it was Health Insurance: [place] - Health Issues Impacting Discharge Plan: ovarian abcess Last Admission Date: none Is this Within the Past 30 days? No Advance Directive: Current Advance Directive: None Conference Specialist Attempted to Assist with AD Completion: Yes [...] None Has the Patient Been in a Long-Term Facility in the Past 30 days? No [...] 0 I feel financially burdened by my [id number] expenses for my prescription medication: Disagree completely [...] other than being in tx with [facility] [phone] with plans to return once cleared FREEDOM OF CHOICE EXPLAINED: Yes 10/13/18-pt Preference: return to rehab POTENTIAL TRANSITION PLANS Rehab Facility Met with pt at bedside. 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 From [facility] [phone] with plans to return once cleared . Provided [place] of Choice and [facility] information. Received checklist How to Best Manage Your Health. No concerns expressed at this time. SIGNATURE: Prince Sargent RN PATIENT NAME: Felisa Schreiber DATE: October 13, 2018 TIME: 8:57 AM PAGER/CONTACT #: [phone] Normal [facility] CBCon 10-13-2018 Absolute nRBC <0.01 Normal <0.01 [facility] Comment on above: Performed By: #### C BC, CMP ####[address] [place] [phone] Erythrocyte distribution width Ratio (RBC) 12.0 % Normal 11.5-15.0 [facility] Comment on above: Performed By: #### C BC, CMP ####[address] [place] [phone] Hematocrit Volume Fraction (Bld) 39.9 % Normal 36.0-46.0 [facility] Comment on above: Performed By: #### C BC, CMP ####[address] [place] [phone] Hemoglobin mass conc (Bld) 13.2 g/dL Normal 11.5-15.5 [facility] Comment on above: Performed By: #### C BC, CMP ####[address] [place] [phone] MCH Entitic mass (RBC) 30.2 pG Normal 26.0-34.0 [facility] Comment on above: Performed By: #### C BC, CMP ####[address] [place] [phone] MCHC mass conc (RBC) 33.1 g/dL Normal 30.5-36.0 [facility] Comment on above: Performed By: #### C BC, CMP ####[address] [place] [phone] MCV Entitic volume (RBC) 91.3 fL Normal 80.0-100.0 [facility] Comment on above: Performed By: #### C BC, CMP ####[address] [place]., [place] [phone] Platelet mean volume Entitic volume (Bld) 11.6 fL Normal 9.0-12.7 [facility] Comment on above: Performed By: #### C BC, CMP ####[address] [place]., [place] [phone] Platelets #/vol (Bld) 304 10*3/uL Normal 150-400 [facility] Comment on above: Performed By: #### C BC, CMP ####[address] [place]., [place] [phone] RBC #/vol (Bld) 4.37 10*6/uL Normal 3.90-5.[address] [facility] Comment on above: Performed By: #### C BC, CMP ####[address] [place]., [place] [phone] WBC #/vol (Bld) 9.93 10*3/uL Normal 3.70-11.[address] [facility] Comment on above: Performed By: #### C BC, CMP ####[address] [place]., [place] [phone] Comp Metabolic Panelon 10-13 Albumin mass conc 4.5 g/dL Normal 4.0-4.[address] [facility] Comment on above: Performed By: #### C BC, CMP ####[address] [place]., [place] [phone] ALP enzyme act/vol 66 U/L Normal 34-[address] [facility] Comment on above: Performed By: #### C BC, CMP ####[address] [place]., [place] [phone] ALT enzyme act/vol 14 U/L Normal 0-[address] [facility] Comment on above: Performed By: #### C BC, CMP ####[address] [place]., [place] [phone] Anion gap molar conc 13 mmol/L Normal 0-15 [facility] Comment on above: Performed By: #### C BC, CMP ####[address] [place]., [place] [phone] AST enzyme act/vol 14 U/L Normal 0-[address] [facility] Comment on above: Performed By: #### C BC, CMP ####[address] [place]., [place] [phone] Bilirubin mass conc 0.5 mg/dL Normal 0.2-1.3 [facility] Comment on above: Performed By: #### C BC, CMP ####[address] [place]., [place] [phone] Calcium mass conc 9.8 mg/dL Normal 8.5-10.[address] [facility] Comment on above: Performed By: #### C BC, CMP ####[address] [place]., [place] [phone] Chloride molar conc 103 mmol/L Normal 98-107 [facility] Comment on above: Performed By: #### C BC, CMP ####[address] [place]., [place] [phone] CO2 molar conc 26 mmol/L Normal 22-29 [facility] Comment on above: Performed By: #### C BC, CMP ####[address] [place]., [place] [phone] Creatinine mass conc 0.67 mg/dL Normal 0.51-0.95 [facility] Comment on above: Performed By: #### C BC, CMP ####[facility] [place] [address] [place] [phone] eGFR- Amer. >60 Normal >[address] [facility] Comment on above: Performed By: #### C BC, CMP ####[address] [place] [phone] GFR/1.73 sq M predicted among non-blacks MDRD vol rate/area (S/P/Bld) mL/min/{1.73_m2} Normal >[address] [facility] Comment on above: Result Comment: eGFR (Estimated GFR) Units of measure: mL/min/1.73 meters squared eGFR is derived from the 4 variable MDRD equation for glomerular filtration rate (GFR) based on a stable serum creatinine, gender, and age. According to KDOQI guidelines, an eGFR <60 mL/min/1.73m2 is sufficient to diagnose a patient with chronic kidney disease. Performed By: #### C BC, CMP ####[address] [place]., [place] [phone] Glucose mass conc 75 mg/dL Normal 74-[address] [facility] Comment on above: Performed By: #### C BC, CMP ####[address] [place]., [place] [phone] Potassium molar conc 4.2 mmol/L Normal 3.4-4.5 [facility] Comment on above: Performed By: #### C BC, CMP ####[address] [place] [phone] Protein mass conc 8.4 g/dL Normal 6.6-8.[address] [facility] Comment on above: Performed By: #### C BC, CMP ####[address] [place] [phone] Sodium molar conc 142 mmol/L Normal 136-[address] [facility] Comment on above: Performed By: #### C BC, CMP ####[address] [place]., [place] [phone] Urea nitrogen mass conc 13 mg/dL Normal 6-20 [facility] Comment on above: Performed By: #### C BC, CMP ####[facility] [facility]., [place] [phone] NURSING PROGon 10-13-2018 Protein mass conc HNO ID: [id number] Author: Reina John (Rn) KENIA Encarnacion Service: (none) Author Type: Registered Nurse Type: Nursing Progress Note Filed: 10/14/2018 8:21 AM Note Text: Nursing Progress Note Patient Name: Felisa Schreiber Patient Location: [id number]/[facility] U-045* Daily Note:1930 Patient resting in bed,alert and oriented x 3. Independent. 2200 Medicated for pain. 0000 Sleeping,no signs of distress. [address] Edmondson.CBC with diff ordered. This note was completed by: Reina Encarnacion RN Normal [facility] Basic Metabolic Panlon 10-12 Anion gap molar conc 12 mmol/L Normal 0-15 [facility] Comment on above: Performed By: #### C BCDIF, BMP ####[facility] [facility]., [place] [phone] Calcium mass conc 10.1 mg/dL Normal 8.5-10.[address] [facility] Comment on above: Performed By: #### C BCDIF, BMP ####[facility] [facility]., [place] [phone] Chloride molar conc 103 mmol/L Normal 98-107 [facility] Comment on above: Performed By: #### C BCDIF, BMP ####[facility] [facility] [place]., [place] [phone] CO2 molar conc 24 mmol/L Normal 22-29 [facility] Comment on above: Performed By: #### C BCDIF, BMP ####[address] [place] [phone] Creatinine mass conc 0.70 mg/dL Normal 0.51-0.95 [facility] Comment on above: Performed By: #### C BCDIF, BMP ####[address] [place] [phone] eGFR- Amer. >60 Normal >[address] [facility] Comment on above: Performed By: #### C BCDIF, BMP ####[address] [place] [phone] GFR/1.73 sq M predicted among non-blacks MDRD vol rate/area (S/P/Bld) mL/min/{1.73_m2} Normal >[address] [facility] Comment on above: Result Comment: eGFR (Estimated GFR) Units of measure: mL/min/1.73 meters squared eGFR is derived from the 4 variable MDRD equation for glomerular filtration rate (GFR) based on a stable serum creatinine, gender, and age. According to KDOQI guidelines, an eGFR <60 mL/min/1.73m2 is sufficient to diagnose a patient with chronic kidney disease. Performed By: #### C BCDIF, BMP ####[address] [place] [phone] Glucose mass conc 85 mg/dL Normal 74-[address] [facility] Comment on above: Performed By: #### C BCDIF, BMP ####[address] [place] [phone] Potassium molar conc 4.5 mmol/L Normal 3.4-4.5 [facility] Comment on above: Performed By: #### C BCDIF, BMP ####[address] [place] [phone] Sodium molar conc 139 mmol/L Normal 136-[address] [facility] Comment on above: Performed By: #### C BCDIF, BMP ####[facility] [facility]., [place] [phone] Urea nitrogen mass conc 11 mg/dL Normal 6-20 [facility] Comment on above: Performed By: #### C BCDIF, BMP ####[facility] [facility]., [place] [phone] Blood Cultureon 10-12-2018 Bacteria identified Cx Nom (Bld) Sp. Request/Comment: - The blood culture bottles are underfilled. Adding volume lower or higher than the 8 to 10 mL per bottle, which is the manufacturers recommended volume, may adversely affect the recovery and/or detection of organisms. 10.2 CC Culture Result - No growth 5 days [facility] Comment on above: Performed By: #### B LCUL ####[place] [address] [place] [phone] Bacteria identified Cx Nom (Bld) Sp. Request/Comment: - The blood culture bottles are underfilled. Adding volume lower or higher than the 8 to 10 mL per bottle, which is the manufacturers recommended volume, may adversely affect the recovery and/or detection of organisms. 4.7 CC Culture Result - No growth 5 days [facility] Comment on above: Performed By: #### B LCUL ####[facility] [place], [place] [phone] CBC and Differentialon 10-12 Abs Baso 0.06 k/uL Normal <0.11 [facility] Comment on above: Performed By: #### C BCDIF, BMP ####[facility] [facility]., [place] [phone] Abs Metcalfe 0.82 k/uL Normal <0.87 [facility] Comment on above: Performed By: #### C BCDIF, BMP ####[facility] [facility]., [place] [phone] Abs Neut 9.83 k/uL High 1.45-7.50 [facility] Comment on above: Performed By: #### C BCDIF, BMP ####[address] [place] [phone] Absolute nRBC <0.01 Normal <0.01 [facility] Comment on above: Performed By: #### C BCDIF, BMP ####[address] [place] [phone] Basophils/100 WBC (Bld) 0.5 % Normal [facility] Comment on above: Performed By: #### C BCDIF, BMP ####[address] [phone] DTYPE Auto Diff Normal [facility] Comment on above: Performed By: #### C BCDIF, BMP ####[address] [place] [phone] Eosinophils #/vol (Bld) 0.13 10*3/uL Normal <0.46 [facility] Comment on above: Performed By: #### C BCDIF, BMP ####[address] [place] [phone] Eosinophils/100 WBC (Bld) 1.0 % Normal [facility] Comment on above: Performed By: #### C BCDIF, BMP ####[address] [place] [phone] Erythrocyte distribution width Ratio (RBC) 11.9 % Normal 11.5-15.0 [facility] Comment on above: Performed By: #### C BCDIF, BMP ####[address] [phone] Hematocrit Volume Fraction (Bld) 40.3 % Normal 36.0-46.0 [facility] Comment on above: Performed By: #### C BCDIF, BMP ####[address] [place] [phone] Hemoglobin mass conc (Bld) 13.1 g/dL Normal 11.5-15.5 [facility] Comment on above: Performed By: #### C BCDIF, BMP ####[address] [place] [phone] Lymphocytes #/vol (Bld) 1.82 10*3/uL Normal 1.00-4.00 [facility] Comment on above: Performed By: #### C BCDIF, BMP ####[address] [phone] Lymphocytes/100 WBC (Bld) 14.4 % Normal [facility] Comment on above: Performed By: #### C BCDIF, BMP ####[address] [place] [phone] MCH Entitic mass (RBC) 29.8 pG Normal 26.0-34.0 [facility] Comment on above: Performed By: #### C BCDIF, BMP ####[address] [place] [phone] MCHC mass conc (RBC) 32.5 g/dL Normal 30.5-36.0 [facility] Comment on above: Performed By: #### C BCDIF, BMP ####[address] [place] [phone] MCV Entitic volume (RBC) 91.6 fL Normal 80.0-100.0 [facility] Comment on above: Performed By: #### C BCDIF, BMP ####[address] [place] [phone] Monocytes/100 WBC (Bld) 6.5 % Normal [facility] Comment on above: Performed By: #### C BCDIF, BMP ####[address] [place] [phone] Neutrophils/100 WBC (Bld) 77.6 % Normal [facility] Comment on above: Performed By: #### C BCDIF, BMP ####[address] [place]., [place] [phone] NRBCs 0.0 /100 WBC Normal 0 [facility] Comment on above: Performed By: #### C BCDIF, BMP ####[address] [place]., [place] [phone] Platelet mean volume Entitic volume (Bld) 12.7 fL Normal 9.0-12.7 [facility] Comment on above: Performed By: #### C BCDIF, BMP ####[address] [place] [phone] Platelets #/vol (Bld) 269 10*3/uL Normal 150-400 [facility] Comment on above: Result Comment: [facility] le checked for a clot. Performed By: #### C BCCYRUSF, BMP ####[address] [place] [phone] RBC #/vol (Bld) 4.40 10*6/uL Normal 3.90-5.[address] [facility] Comment on above: Performed By: #### C BCDIF, BMP ####[address] [place]., [place] [phone] WBC #/vol (Bld) 12.66 10*3/uL High 3.70-11.[address] [facility] Comment on above: Performed By: #### C BCDIF, BMP ####[address] [place]., [place] [phone] ED NOTEon 10-12-2018 ED NOTE HNO ID: [id number] Author: Dahlia Sun) KENIA Montes De Oca Service: (none) Author Type: Registered Nurse Type: ED Notes Filed: 10/12/2018 9:11 PM Note Text: Report given to Arash 440-1 [facility] ED NOTE HNO ID: [id number] Author: Dahlia Sun) KENIA Montes De Oca Service: (none) Author Type: Registered Nurse Type: ED Notes Filed: 10/12/2018 9:11 PM Note Text: Pharmacy sent Clindamycin down to the ED and stated to start that first. [facility] ED NOTE HNO ID: [id number] Author: Dahlia GrullonRn) KENIA Montes De Oca Service: (none) Author Type: Registered Nurse Type: ED Notes Filed: 10/12/2018 5:37 PM Note Text: Pt. To ultrasound. [facility] ED NOTE HNO ID: [id number] Author: Dahlia Montes De Oca RN Service: (none) Author Type: Registered Nurse Type: ED Notes Filed: 10/12/2018 5:38 PM Note Text: PA at bedside performing pelvic exam. [facility] ED NOTE HNO ID: [id number] Author: Carey Hernández LPN Service: (none) Author Type: LICENSED NURSE Type: ED Notes Filed: 10/12/2018 4:58 PM Note Text: Annika PALUMBO at bedside assessing pt. [facility] ED NOTE HNO ID: [id number] Author: Carey Hernández LPN Service: (none) Author Type: LICENSED NURSE Type: ED Notes Filed: 10/12/2018 4:58 PM Note Text: Clean catch urine specimen obtained and sent. [facility] ED NOTE HNO ID: [id number] Author: Carey Hernández LPN Service: (none) Author Type: LICENSED NURSE Type: ED Notes Filed: 10/12/2018 4:49 PM Note Text: Pt. Assisted to restroom in attempt to provide urine specimen. Pt. Having unprotected sex, states chance of . [facility] ED NOTE HNO ID: [id number] Author: Carey Hernández LPN Service: (none) Author Type: LICENSED NURSE Type: ED Notes Filed: 10/12/2018 4:50 PM Note Text: Pt. Arrived via EMS from [facility] for Left Lower Quadrant Abdominal Pain that [...] up, bed in locked and low position [facility] ED NOTE HNO ID: [id number] Author: Last (Medic) Mari Service: (none) Author Type: Salesperson [employer] and Light Bulb Assembler Type: ED Notes Filed: 10/12/2018 4:42 PM Note Text: Bed: ED-20 Expected date: Expected time: Means of arrival: Comments: [facility] ED PROV NOTEon 10-12-2018 Protein mass conc HNO ID: [id number] Author: Tarsha Jim Service: Emergency Medicine Author Type: Physician Technical Staff Assistant Type: ED Provider Notes Filed: 10/13/2018 3:12 [...] yesterday. She is in drug treatment at [facility]. She has been there since the . [...] ultrasound report I spoke to Dr. Smith 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 on-call I discussed the patient and was [...] comfortable with staying. I relayed to the 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 that the patient should not be getting narcotics that she is in drug treatment the patient does not want any. Patient states she is more comfortable with the Toradol she received The patient was ADMITTED TO: Regular nursing floor. Condition at time of disposition: stable SIGNATURE: JR Hernandez) Diandra 10/12/182118 Mitesh Shelton 10/12/18 2241 Tarsha Toro) Jim 10/13/18 1512 [facility] GC/Chlamydia Amplifon 2018 Chlamydia Amplif Positive Critically abnormal [facility] Comment on above: Result Comment: In l ow prevalence populations, the likelihood of a false positive may be higher than a true positive. Retesting by another method may be appropriate for patients who lack risk factors or clinical signs and symptoms consistent with infection. Performed By: #### G CCT ####[place] [id number] [place], [place] [phone] [phone] GC Amplification Negative Normal [facility] Comment on above: Performed By: #### G CCT ####[address] [id number] [phone] GC/Chlam Amp Source Vaginal Normal [facility] Comment on above: Performed By: #### G CCT ####[address] [place]., [place] [phone] Memorial Hospital[address] [place], [place] [phone] Trichomonas Prepon 9 Trichomonas Prep Smear Result - Negative for Trichomonas vaginalis antigen Normal [facility] Comment on above: Performed By: #### T MIRLANDE #### [facility] [address] [place] [address] US DOPPLER COMPLETEon 2018 US DOPPLER COMPLETE [...] of ovarian torsion. Suspect left tubo-ovarian abscess. Catering Truck Operator: CATRACHITA Transcribe Date/Time: Oct 12 2018 6:27P Dictated by : KUN DRUMMOND MD This examination was interpreted and the report reviewed and electronically signed by: KUN DRUMMOND MD on Oct 12 2018 6:46PM EST [id number] [id number] [facility] US FEMALE PELVIS TRANSABD LT Don [...] structure. Although there is no hyperemia the igles are thick and irregular which is concerning for tubo-ovarian abscess. Pelvis free fluid: Small free fluid in the cul-de-sac IMPRESSION: No evidence of ovarian torsion. Suspect left tubo-ovarian abscess. Catering Truck Operator: CATRACHITA Transcribe Date/Time: Oct 12 2018 6:27P Dictated by : KUN DRUMMOND MD This examination was interpreted and the report reviewed and electronically signed by: UKN DRUMMOND MD on Oct 12 2018 6:46PM EST [id number] ACN [facility] US FEMALE PELVIS TRANSVAGon 10-12-2018 US [...] of ovarian torsion. Suspect left tubo-ovarian abscess. Catering Truck Operator: [facility] Transcribe Date/Time: Oct 12 2018 6:27P Dictated by : KUN DRUMMOND MD This examination was interpreted and the report reviewed and electronically signed by: KUN DRUMMOND MD on Oct 12 2018 6:46PM EST [id number] Normal [facility] Urinalysis with Microscopico n 10-12-2018 Bacteria LM.HPF #/area (Urine sed) Present Critically abnormal 0 [facility] Comment on above: Performed By: #### U AWMIC #### [facility] [address] [facility] [place] [address] Bilirubin, Urine Negative Normal Negative [facility] Comment on above: Performed By: #### U AWMIC #### [place] [id number] [facility] [place] [address] Cast SEE COMMENT Normal 0 [facility] Comment on above: Result Comment: 0 Performed By: #### U AWMIC #### [facility] [address] [facility] [place] [address] Clarity Nom (U) Cloudy Critically abnormal Clear [facility] Comment on above: Performed By: #### U AWMIC #### [address] [place] [address] Color Nom (U) Yellow Normal Yellow [facility] Comment on above: Performed By: #### U AWMIC #### [address] [place] [address] Crystals LM Nom (Urine sed) SEE COMMENT Critically abnormal 0 [facility] Comment on above: Result Comment: Many Amorphous Performed By: #### U AWMIC #### [address] [place] [address] Epithelial cells LM.HPF #/area (Urine sed) SEE COMMENT Normal [facility] Comment on above: Result Comment: Mode rate Performed By: #### U AWMIC #### [address] [place] [address] Glucose Ql (U) Negative Normal Negative [facility] Comment on above: Performed By: #### U AWMIC #### [address] [place] [address] Hemoglobin/Blood,Ur Negative Normal Negative [facility] Comment on above: Performed By: #### U AWMIC #### [address] [place] [address] Ketones Ql (U) Negative Normal Negative [facility] Comment on above: Performed By: #### U AWMIC #### [address] [place] [address] Leukest Negative Normal Negative [facility] Comment on above: Performed By: #### U AWMIC #### [address] [place] [address] Nitrite Ql (U) Negative Normal Negative [facility] Comment on above: Performed By: #### U AWMIC #### [facility] [address] [facility] [place] [address] pH (Bld) 8.0 Normal 4.6-8.0 [facility] Comment on above: Performed By: #### U AWMIC #### [facility] [address] [facility] [place] [address] Protein mass conc (U) Negative Normal Negative [facility] Comment on above: Performed By: #### U AWMIC #### [facility] [address] [facility] [place] [address] RBC #/vol (U) 0-3 Normal 0-3 [facility] Comment on above: Performed By: #### U AWMIC #### [facility] [address] [facility] [place] [address] Specific [place], Ur 1.020 Normal 1.001-1.035 [facility] Comment on above: Performed By: #### U AWMIC #### [facility] [address] [facility] [place] [address] Urobilinogen Qn (U) Normal Normal Normal [facility] Comment on above: Performed By: #### U AWMIC #### [facility] [address] [facility] [place] [address] WBC #/vol (Bld) 0-5 Normal 0-5 [facility] Comment on above: Performed By: #### U AWMIC #### [facility] [address] [facility] [place] [address] Urine Cultureon 10-12-2018 Bacteria identified Cx Nom [...] <=0.25 F Ertapenem SUSCEPTIBLE <=0.5 F Critically [facility] Comment on above: Performed By: #### U RCUL ####[facility] [place], [place] [phone] Vital Signs Date Time Vital Sign Value Performing Clinician Facility 05-03-2025 21:00-0400 Diastolic blood pressure 89 mm[Hg] Dr. Ángel Smith DO Work Phone: [phone] [place] [address] 05-03-2025 21:00-0400 Heart rate 80 /min Dr. Ángel Smith DO Work Phone: [phone])[phone] [place] [address] 05-03-2025 21:00-0400 SaO2% (BldA) [Mass fraction] 100 % Dr. Ángel Smith DO Work Phone: [facility] 05-03-2025 21:00-0400 Systolic blood pressure 132 mm[Hg] Dr. Ángel Smith DO Work Phone: [phone] [place] [address] 05-03-2025 20:31-0400 Body temperature 98.3 [degF] Dr. Ángel Smith DO Work Phone: [phone] [place] [address] 05-03-2025 20:31-0400 Respiratory rate 18 /min Dr. Ángel Smith DO Work Phone: 1([phone])[phone] [place] [address] 05-03-2025 18:35-0400 Body height 154.[address] Ángel Smith DO Work Phone: [phone] [place] [address] 05-03-2025 18:35-0400 Body mass index (BMI) [Ratio] 19.2 kg/m2 Dr. Ángel Smith DO Work Phone: [facility] 05-03-2025 18:35-0400 Body weight 46.[address] Ángel Smith DO Work Phone: [facility] 10-30-2022 13:15-0500 Body height 154.9 cm No Pcp Required [facility] 10-30-2022 13:15-0500 Body temperature 97.88 [degF] No Pcp Required [facility] 10-30-2022 13:15-0500 Diastolic blood pressure 78 mm[Hg] No Pcp Required [facility] 10-30-2022 13:15-0500 Heart rate 94 /min No Pcp Required [facility] 10-30-2022 13:15-0500 SaO2% (BldA) [Mass fraction] 95 % No Pcp Required [facility] 10-30-2022 13:15-0500 Systolic blood pressure 124 mm[Hg] No Pcp Required [facility] 07-07-2021 13:20-0400 Body height 154.9 cm No Pcp Required [facility] 07-07-2021 13:20-0400 Body temperature 98.06 [degF] No Pcp Required [facility] 07-07-2021 13:20-0400 Diastolic blood pressure 69 mm[Hg] No Pcp Required [facility] 07-07-2021 13:20-0400 Heart rate 82 /min No Pcp Required [facility] 07-07-2021 13:20-0400 Respiratory rate 16 /min No Pcp Required [facility] 07-07-2021 13:20-0400 SaO2% (BldA) [Mass fraction] 100 % No Pcp Required [facility] 07-07-2021 13:20-0400 Systolic blood pressure 109 mm[Hg] No Pcp Required [facility] 06-20-2021 12:56-0400 Body height 154.9 cm No Pcp Required [facility] 06-20-2021 12:56-0400 Body temperature 98.06 [degF] No Pcp Required [facility] 06-20-2021 12:56-0400 Diastolic blood pressure 82 mm[Hg] No Pcp Required [facility] 06-20-2021 12:56-0400 Heart rate 88 /min No Pcp Required [facility] 06-20-2021 12:56-0400 SaO2% (BldA) [Mass fraction] 98 % No Pcp Required [facility] 06-20-2021 12:56-0400 Systolic blood pressure 130 mm[Hg] No Pcp Required [facility] 05-31-2021 16:04-0400 Body height 154.9 cm No Pcp Required [facility] 05-31-2021 16:04-0400 Body temperature 97.7 [degF] No Pcp Required [facility] 05-31-2021 16:04-0400 Diastolic blood pressure 81 mm[Hg] No Pcp Required [facility] 05-31-2021 16:04-0400 Heart rate 79 /min No Pcp Required [facility] 05-31-2021 16:04-0400 Respiratory rate 16 /min No Pcp Required [facility] 05-31-2021 16:04-0400 SaO2% (BldA) [Mass fraction] 98 % No Pcp Required [facility] 05-31-2021 16:04-0400 Systolic blood pressure 123 mm[Hg] No Pcp Required [facility] 11-06-2019 16:59-0500 BMI (Body Mass Index) 26.45 kg/m2 [facility] 11-06-2019 16:59-0500 Body Temperature 97.59 [degF] [facility] 11-06-2019 16:59-0500 Body weight 63.5 kg [facility] 11-06-2019 16:59-0500 BP Diastolic 74 mm[Hg] [facility] 11-06-2019 16:59-0500 BP Systolic 114 mm[Hg] [facility] 11-06-2019 16:59-0500 Height 154.9 cm [facility] 11-06-2019 16:59-0500 Pulse (Heart Rate) 96 /min [facility] 11-06-2019 16:59-0500 Pulse Oximetry 100 % Abdi Tello [facility] 11-06-2019 16:59-0500 Respiratory Rate 18 /min Abdi Tello [facility] 11-04-2019 21:35-0500 Pulse (Heart Rate) 76 /min Leila [facility] 11-04-2019 21:35-0500 Pulse Oximetry 98 % [facility] [...] 18:12-0500 Pulse Oximetry 99 % Marty Apple [facility] 11-04-2019 18:09-0500 Body Temperature 98.1 [degF] Marty Apple [facility] 11-04-2019 18:09-0500 BP Diastolic 85 mm[Hg] Marty Apple [facility] 11-04-2019 18:09-0500 BP Systolic 129 mm[Hg] Marty Apple [facility] 11-04-2019 18:09-0500 Pulse (Heart Rate) 98 /min Marty Apple [facility] 11-04-2019 18:09-0500 Respiratory Rate 16 /min Marty Apple [facility] 10-21-2019 17:44-0500 BP Diastolic 83 mm[Hg] [facility] 10-21-2019 17:44-0500 BP Systolic 129 mm[Hg] [facility] 10-21-2019 17:41-0500 BMI (Body Mass Index) 26.45 kg/m2 [facility] 10-21-2019 17:41-0500 Body Temperature 98.01 [degF] [facility] 10-21-2019 17:41-0500 Body weight 63.5 kg [facility] 10-21-2019 17:41-0500 Height 154.9 cm [facility] 10-21-2019 17:41-0500 Pulse (Heart Rate) 98 /min [facility] 10-21-2019 17:41-0500 Pulse Oximetry 96 % [facility] 10-21-2019 17:41-0500 Respiratory Rate 16 /min [facility] 09-19-2019 16:06-0500 BMI (Body Mass Index) 26.45 kg/m2 [facility] 09-19-2019 16:06-0500 Body Temperature 97.81 [degF] [facility] 09-19-2019 16:06-0500 Body weight 63.5 kg [facility] 09-19-2019 16:06-0500 BP Diastolic 90 mm[Hg] [facility] 09-19-2019 16:06-0500 BP Systolic 125 mm[Hg] [facility] 09-19-2019 16:06-0500 Height 154.9 cm [facility] 09-19-2019 16:06-0500 Pulse (Heart Rate) 90 /min [facility] 09-19-2019 16:06-0500 Pulse Oximetry 98 % [facility] 09-19-2019 16:06-0500 Respiratory Rate 18 /min [facility] 03-07-2019 11:33-0400 BMI (Body Mass Index) 25.7 kg/m2 [facility] 03-07-2019 11:33-0400 Body Temperature 98.2 [degF] [facility] 03-07-2019 11:33-0400 BP Diastolic 66 mm[Hg] [facility] 03-07-2019 11:33-0400 BP Systolic 123 mm[Hg] [facility] 03-07-2019 11:33-0400 Height 154.9 cm [facility] 03-07-2019 11:33-0400 Pulse (Heart Rate) 94 /min [facility] 03-07-2019 11:33-0400 Pulse Oximetry 98 % Dianna Sanford [facility] 03-07-2019 11:33-0400 Respiratory Rate 16 /min Dianna Sanford [facility] 03-07-2019 11:33-0400 Weight 61.69 kg Dianna Sanford [facility] Encounters Encounter Date Encounter Type Care Provider Facility Start: 05-03-2025 Evaluation and manag ement of inpatient Dr. Hui Beryr MD -Medical Surgical 3 Work Phone: Start: 06-11-2024 End: 06-12-2024 Emergency department patient visit PHYSICIAN GODWIN [facility] Start: 10-30-2022 End: 10-30-2022 Emergency department patient visit Omar Elliott [facility] Urgent [facility] 02 Start: 10-06-2022 End: 10-06-2022 Emergency department patient visit PAC Omar Humphreys Vidrine Facility:[id number] Start: 07-07-2021 End: 07-07-2021 Emergency department patient visit Malathi Aguirre [facility]gent [facility] 05 Start: 06-20-2021 End: 06-20-2021 Emergency department patient visit Omar Elliott [facility]gent [facility] 02 Start: 05-31-2021 End: 05-31-2021 Emergency department patient visit Omar Elliott [facility] 02 Start: 07-05-2020 End: 07-05-2020 Patient encounter procedure GONZALO BOBBY [facility] Start: 11-06-2019 End: 11-06-2019 Emergency department patient visit PHYSICIAN GODWIN [facility] Start: 11-06-2019 End: 11-06-2019 Emergency department patient visit Abdi Tello Work Phone: [facility] Comment on above: Nausea and vomiting, intractability of vomiting not specified, unspecified vomiting type (Primary Dx) Start: 11-04-2019 End: 11-04-2019 Emergency department patient visit Leila Juarez Work Phone: [facility] Department Comment on above: Less than 8 weeks ge station of (Primary Dx) Start: 11-04-2019 End: 11-04-2019 Emergency department patient visit Marty Apple Work Phone: [facility] Department Comment on above: Abdominal pain mamadouin g in first trimester (Primary Dx); Gastroenteritis Start: 10-21-2019 End: 10-21-2019 Emergency department patient visit PHYSICIAN NO [facility] Start: 10-21-2019 End: 10-21-2019 Emergency department patient visit Michael FriedmanChani Cecilia Work Phone: [facility] Comment on above: Acute UTI (Primary D x) Start: 09-19-2019 End: 09-19-2019 Emergency department patient visit PHYSICIAN NO [facility] Start: 09-19-2019 End: 09-19-2019 Emergency department patient visit Abdi Ghoshn Adam Baervell Work Phone: [facility] Comment on above: Lightheadedness (Jodi neil Dx); Hypertension, unspecified type; Acute pharyngitis, unspecified etiology Start: 03-07-2019 End: 03-07-2019 Emergency department patient visit PHYSICIAN NO [facility] Start: 03-07-2019 End: 03-07-2019 Emergency department patient visit Dianna Sanford Work Phone: [facility] Department Comment on above: Acute UTI (Primary D x) Start: 10-29-2018 End: 10-30-2018 [facility] Start: 10-12-2018 End: 10-14-2018 Evaluation and management of inpatient [facility] Procedures Date Procedure Procedure Detail Performing Clinician [...] 10-21-2019 Choriogonadotropin ( test) [Presence] in Urine [facility] Start: 10-21-2019 Urnls dip stick/tabl et rgnt auto w/o microscopy [facility] Start: 09-19-2019 Choriogonadotropin ( test) [Presence] in Urine [facility] Start: 09-19-2019 Iaadiadoo streptococ cus group a [facility] Start: 09-19-2019 Urnls dip stick/tabl et rgnt auto w/o microscopy [facility] Start: 09-19-2019 12 [...] Author Start: 05-03-2025 Serologic test for syphilis [facility] Start: 05-03-[address] [facility] Start: 05-03-2025 Admission procedure [facility] Start: 05-03-2025 Verification routine [facility] Start: 05-03-2025 Hospital admission, emergency, from emergency room, medical nature [facility] Start: 01-28-2024 Screening for malign ant neoplasm of cervix PAP SMEAR [facility] Start: 01-28-2020 Depression screening using PHQ-9 (Patient Health Questionnaire 9) score DEPRESSION SCREENING (PHQ9) [facility] Start: 01-28-2020 History and physical examination, annual for health maintenance Wellness Visit [facility] Start: 05-25-2019 Influenza vaccinatio n given [facility] Start: 1988 Depression screening using PHQ-9 (Patient Health Questionnaire 9) score DEPRESSION SCREENING (PHQ9) [facility] Start: 1990 Tetanus vaccination TETANUS EVERY 10 YR [facility] End: 03-07-2019 Bacteria identified Aer cx Nom (Unsp spec) Urine Aerobic Culture Microbiology Routine Once for 1 Occurrences starting 03/07/2019 until 03/07/2019 [facility] Comment on above: Once for 1 Occurrenc es starting 03/07/2019 until 03/07/2019 Bacteria identified Aer cx Nom (Unsp spec) [facility] End: 10-21-2019 Bacteria identified Aer cx Nom (Unsp spec) Urine Aerobic Culture Microbiology Routine Once for 1 Occurrences starting 10/21/2019 until 10/21/2019 [facility] Comment on above: Once for 1 Occurrenc es starting 10/21/2019 until 10/21/2019 End: 11-06-2019 Clostridium difficile toxin assay Clostridium difficile Testing Microbiology Routine Once for 1 Occurrences starting 11/06/2019 until 11/06/2019 [facility] Comment on above: Once for 1 Occurrenc es starting 11/06/2019 until 11/06/2019 End: 09-19-2019 S. pyogenes Org specific cx Ql (Throat) Strep A Culture, Throat Microbiology Routine Once for 1 Occurrences starting 09/19/2019 until 09/19/2019 [facility] Comment on above: Once for 1 Occurrenc es starting 09/19/2019 until 09/19/2019 S. pyogenes Org spec ific cx Ql (Throat) Strep A Culture, Throat Microbiology Routine 09/19/2019 5:39 PM EST [facility] Transvaginal obstetr ic ultrasonography US Obstetric Transvaginal Imaging YONATAN 11/04/2019 9:37 PM EST [facility] Payers Date Payer Category Payer Medicaid [employer] MEDICAID [employer] MEDICAID xxxxxxxxxxx 2018-Present xxxxxxxxxxx [id number] 2018 Medicaid [id number] 2018 Medicaid [id number] 1988 Unknown [id number] 1988 Unknown [id number] 1988 Unknown [id number] 1988 Unknown [id number] 1988 Unknown [id number] 1988 Unknown [id number] 1988 Unknown [id number] 1988 Unknown [id number] 1988 Unknown [id number] Unknown [employer] Social History Date Type Detail Facility Start: 03-07-2019 End: 05-03-2025 Tobacco smoking status PAIS Current every day smoker [facility] History of tobacco use Cigarette Smoker [facility] Start: 03-07-2019 End: 11-06-2019 Cigarettes smoked current (pack per day) - Reported [facility] Sex Assigned At Not on file [facility] Start: 09-19-2019 End: 11-06-2019 Alcohol intake Ex-drinker (finding) [facility] Tobacco smoking consumption unknown [facility] Start: 1990 Sex Assigned At Female W [facility] Goals Date Patient Goal Desired Activity /State Comment on above: Mild to moderate exe rcise under the guidance of your physician is usually safe and encouraged. Evaluation note Note Date & Type Note Facility Evaluation note No assessment information availa ble [facility] Work Phone: Reason for referral (narrative) Note Date & Type Note Facility Reason for referral (narrative) No reason for referral information available 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 No May 03, 2025 7:19pm Hospital Course Note HNO ID: [id number] Author: Lauren Edmondson Service: Gynecology Author Type: [...] Everywhere. * UTI (Urinary Tract Infection): Female ([place]) documented in this encounter* Instructions* Abdi Tello [...] [place] ED PCP ACCEPTING NEW PATIENTS IN [facility] * Lightheadedness or Faintness ([place]) * Sore Throat ([place]) * Hypertension ([place]) documented in this encounter* Attachments The following attachments cannot be sent through Care Everywhere. * UTI (Urinary Tract Infection): Female ([place]) documented in this encounter* Attachments The following attachments cannot be sent through Care Everywhere. * : Abdominal Pain (Palauan) documented in this encounter* Instructions* Abdi Tello [...] through Care Everywhere. * Nausea and Vomiting ([place]auan) * : Abdominal Pain (Palauan) documented in this encounter Assessments Diagnosis Acute [...] section and content) DATE CREATED AUTHOR [facility] DATE CREATED AUTHOR AUTHOR'S ORGANIZ ATION 11/12/2018 [facility] DATE CREATED AUTHOR AUTHOR'S ORGANIZ ATION 05/18/2019 [facility] DATE CREATED AUTHOR AUTHOR'S ORGANIZ ATION 11/08/2019 [facility] DATE CREATED AUTHOR AUTHOR'S ORGANIZ ATION 07/05/2020 [facility] DATE CREATED AUTHOR AUTHOR'S ORGANIZ ATION 10/[facility] DATE CREATED AUTHOR AUTHOR'S ORGANIZ ATION 11/02/2022 [facility] DATE CREATED AUTHOR AUTHOR'S ORGANIZ ATION 07/05/20[facility] Reason for Visit (unrecogniz ed section and [...] lobby. Pt alert, oriented and stable at sd. ED PROVIDER NOTE [facility] EMERGENCY DEPARTMENT NAME: Felisa Schreiber AGE: 28 y.o. : 1990 VISIT DATE: 03/07/2019 CSN: [id number] PCP: Physician No Chief Complaint Patient presents with Back Pain Patient states for the past 24 hours she has had back pain, nausea, and chills. She is also had urinary frequency. She states the last time I felt like this, I had an infection in my ovary and had to get admitted to [facility]. Past Medical History: Diagnosis Date Anxiety Depression [...] file Gets together: Not on file Attends congregation service: Not on file Active member of [...] Yellow Clarity, Urine Cloudy (A) Clear Specific [place] 1.015 1.005 - 1.025 pH, Urine 6.0 [...] YONATAN to schedule appointment in 1-[address] [place], [place] [id number] Contact information for after-discharge care Follow-up information [...] Associated Order(s): EKG 12-lead ED PROVIDER NOTE [facility] EMERGENCY DEPARTMENT NAME: Felisa Schreiber AGE: 29 y.o. : 1990 VISIT DATE: 09/19/2019 CSN: [id number] PCP: Physician No Chief Complaint Patient presents [...] file Gets together: Not on file Attends congregation service: Not on file Active member of [...] Print Route: Oral Abdi Tello MD 09/19/19 9010 PRESENTS TO THE ED FOR DIZZINESS, LIGHT-HEADED, SORE THROAT, AND COUGH SINCE YESTERDAY. documented in this encounter Presents to ED c/o bilateral lower back pain x3 days. ED PROVIDER NOTE [facility] EMERGENCY DEPARTMENT NAME: Felisa Schreiber AGE: 29 y.o. : 1990 VISIT DATE: 10/21/2019 CSN: [id number] PCP: Physician No Chief Complaint Patient presents [...] file Gets together: Not on file Attends congregation service: Not on file Active member of [...] 7 days . Michael Brooks DO 10/21/19 6308 documented in this encounter Pt. Transferred to [facility]. Pt. To transfer to [facility] via private auto. Pt. Arrives with nausea and pain in left lower quad of abdomin. Pt. Believes she has a tubal and wants checked for . documented in this encounter Pt back from ultrasound [facility] ED Provider Note: NAME: Felisa Schreiber 29 y.o. CSN: [id number] PCP: Physician No History: Chief Complaint: Abdominal [...] file Gets together: Not on file Attends congregation service: Not on file Active member of [...] Procedure Abnormality Status --------- ------ CBC Auto Differential[[id number]] Final result Please view results for these [...] ensure that there is no occult ectopic. [facility] Workstation ID: [id number] Procedures: Procedures ED Course / Medical Decision Making: Patient's ultrasound did not show anything that looked specifically like an ectopic I think this is just a very early . She will need to be followed by her 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 doctor for serial quant's and a repeat [...] discharged to home Susi Pena PA-C Physicians Technical Staff Assistant [facility] Emergency Department Susi Pena PA-C 11/04/192221 Bed: 33 Expected date: Expected time: Means of arrival: Comments: closed Sent form [facility] with c/o LLQ pain. States has taken 4 preg tests, a;; negative but has not had period yet this month. Describes pain as as pulling. documented in this encounter Patient given specimen container w/sticker to take home to obtain specimen. Will drop-off at [facility]. Presents to the ED c/o nausea and requesting phenergan. Patient was seen here 2 days ago and sent to [facility] for an ultrasound. She was discharge from [...] Active Member Role/Relationship Status Dates Barb Love RETAIL EVENT COORDINATOR, RETAIL EVENT COORDINATOR-C Primary Care Provider Active Team Status: Active Member Role/Relationship Status Dates Dr. Ángel Smith , Referring Provider Active S tart: May 03, 2025 Dr. Ángel Smith , DO Emergency Provider Active S tart: May 03, 2025 Barb Love RETAIL EVENT COORDINATOR, RETAIL EVENT COORDINATOR-C Primary Care Provider Active Start: May 03, [...] BE BASED ON THE PRIMARY CLINICAL RECORDS. [employer] provides no warranty or guarantee of the accuracy or completeness of information in this document.
[2025-05-04 05:17] VITALS: BP 141/90; PULSE 75; RESP 16; TEMP 36.7; O2SAT 100
[2025-05-04 08:16] VITALS: BP 149/70; PULSE 75; RESP 16; TEMP 36.8; O2SAT 100
[2025-05-04 09:44] LABS: HIV Nonreactive (Nonreactive); Syphilis Antibodies Nonreactive (Nonreactive)
[2025-05-04 10:43] LABS: Hepatitis B Surface Antigen Nonreactive (Nonreactive); Hepatitis C Antibody REAC (Nonreactive)
[2025-05-04 11:15] VITALS: BP 142/78; PULSE 75; RESP 16; TEMP 36.8; O2SAT 100
--- NOTE | 2025-05-04 12:24 | ADDICTION ---
Patient was sleeping when attempted to meet for RAMP assessments. Will try again in the morning.
--- NOTE | 2025-05-04 12:26 | PCM.PROGNOTE ---
Subjective Subjective Patient seen and examined with her nurse by her bedside. She complained of some shakes and tremors and abdominal cramps. Review of systems is otherwise negative. I was subsequently informed by patient's nurse that patient is actually withdrawing from methadone. The addiction medicine coordinator had spoken to Dr. Dias about the addiction medicine specialist who said that patient may take a longer time to withdrawal from the methadone and to increase the methadone stable to start with 80 mg of buprenorphine. Objective Data Objective Data Vital Signs: Vital Signs Temp Pulse Resp BP Pulse Ox O2 Del Method 98.3 F 75 16 142/78 H 100 Room Air 05/04/25 11:15 05/04/25 11:15 05/04/25 11:15 05/04/25 11:15 05/04/25 11:15 05/04/25 11:15 Oxygen Delivery Method Room Air Weight: 102 lb Body Mass Index (BMI) 19.3 Intake & Output: Intake and Output for Last 24 Hours 05/02/25 05/03/25 05/04/25 23:59 23:59 23:59 Intake Total 1806.25 / 1806.25 Balance 1806.25 / 1806.25 Medical Nutrition Assessment Dietitian: Malnutrition Criteria Met Start: 05/04/25 11:54 Freq: Status: Active Protocol: Document 05/04/25 11:54 KAVITHA (Rec: 05/04/25 11:54 [email or web address] [id number]) Nutrition Malnutrition Evidence of Yes Malnutrition Exists Malnutrition (severe Social/Behavioral/Environmental ): Evidenced By Suboptimal Energy Intake (Severe),Weight Loss (Severe) Clinical Problem Acute Disease or Injury Related Malnutrition Etiology related to polysubstance use and inadequate energy intake Signs/Symptoms as evidenced by po intake meeting <75% of estimated nutritional needs and unintended wt loss of ~18.5% in past three weeks. Status Active Problem Recommendation Dietitian Continue Regular diet w/ snacks tid as ordered Recommendations/ Will order 4 oz chocolate EPHP tid w/ meals for Changes increased nutrition if consumed Lab / Micro Data 05/03/25 19:00 05/03/25 19:00 Labs: Laboratory Results - last 24 hr 05/03/25 19:00: WBC 13.0 H, RBC 4.67, Hgb 14.0, Hct 40.6, MCV 86.9, MCH 30.0, MCHC 34.5, RDW Std Deviation 38.2, RDW Coeff of Evangelista 11.9, Plt Count 221, MPV 11.2, Immature Gran % (Auto) 0.300, Neut % (Auto) 87.6 H, Lymph % (Auto) 7.7 L, [place] % (Auto) 4.1, Eos % (Auto) 0.0, Baso % (Auto) 0.3, Absolute Neuts (auto) 11.4 H, Absolute Lymphs (auto) 1.00, Nucleated RBC % 0, Sodium 138, Potassium 3.8, Chloride 103, Carbon Dioxide 19.1 L, Anion Gap 15, BUN 8, Creatinine 0.70, Estim Creat Clear Calc 80.83, Est GFR (MDRD) Non-Af 115, BUN/Creatinine Ratio 12.1, Glucose 128 H, Calcium 9.9, Total Bilirubin 0.49, AST 21, ALT 18, Alkaline Phosphatase 66, Total Protein 7.6, Albumin 4.6, Globulin 2.9, Albumin/Globulin Ratio 1.6, Serum , Qual NEGATIVE, Urine Opiates Screen NEGATIVE, U Buprenorphine Qual NEGATIVE, Ur Oxycodone Screen NEGATIVE, Urine Methadone Screen PRESUMPTIVE POSITIVE, Urine Fentanyl Screen PRESUMPTIVE POSITIVE, Ur Barbiturates Screen NEGATIVE, Ur Phencyclidine Scrn NEGATIVE, Ur Amphetamines Screen NEGATIVE, U Benzodiazepines Scrn NEGATIVE, Urine Cocaine Screen PRESUMPTIVE POSITIVE, U Cannabinoids Screen NEGATIVE, Ethyl Alcohol < 10.1 05/04/25 06:06: Syphilis Total Ab Nonreactive, Hep Bs Antigen Nonreactive, Hep Bs Antibody Nonreactive, Hepatitis C Antibody REAC, HIV 1&2 Antibody Nonreactive Physical Exam Const alert and oriented x3 Constitutional Narrative: in mild distress due to withdrawal symptoms General Appearance: cooperative HEENT normocephalic, head/scalp atraumatic, moist oral mucous membranes and oropharynx normal Eyes PERRL Neck no lymphadenopathy and supple Lymph Lymphatic: no lymphedema noted Resp normal respiratory effort, normal air movement and clear to auscultation bilaterally Cardio regular rate, regular rhythm, S1 normal heart sound, S2 normal heart sound and no murmurs GI normal to inspection, nondistended, normoactive bowel sounds, soft to palpation, non-tender and non-distended Extremity normal capillary refill General Extremity: no tenderness to palpation of joints or extremities Skin General Skin Exam: no breakdown Neuro CN's II-XII intact bilaterally, no focal motor deficits and no sensory deficits noted Motor Exam: general weakness Psych thought process normal and cooperative Appearance: appropriate Assessment & Plan Assessment/Plan (1) Opiate withdrawal: PLAN: Plan #Acute opioid withdrawal Attends outpatient substance withdrawal from methadone note just opiates. According to addiction medicine, she will take a longer time to go through the withdrawal process. Buprenorphine taper increased to starting dose of 8mg Monitor CINA score. Adjunctive meds for symptomatic relief. #Hepatitis C: Patient tested positive for hepatitis C. Will check RNA level to evaluate for active infection. #Nicotine dependence: Counseled to quit. Nicotine patch 21 mg daily. #DVT prophylaxis: Low risk. Encourage ambulation. Charges/Coding Visit Charges Inpatient E&M: 03767 Subs Hosp L2
[2025-05-04 16:15] VITALS: BP 133/84; PULSE 74; RESP 16; TEMP 36.4; O2SAT 100
[2025-05-04 22:00] VITALS: BP 144/92; PULSE 78; RESP 15; TEMP 36.8; O2SAT 100
[2025-05-05 04:50] VITALS: BP 134/79; PULSE 66; RESP 15; TEMP 36.8; O2SAT 100
[2025-05-05 10:34] VITALS: BP 121/84; PULSE 70; RESP 16; TEMP 36.7; O2SAT 99
--- NOTE | 2025-05-05 13:43 | PN_ITS ---
Subjective Subjective Patient seen and examined. She complained of abdominal cramps and tremors. I saw her with her nurse by her bedside. Her nurse informs me that overnight, addiction medicine specialist was contacted and she recommended making the buprenorphine scheduled every 8 hours. Objective Data Objective Data Vital Signs: Vital Signs Temp Pulse Resp BP Pulse Ox O2 Del Method 98.0 F 70 16 121/84 H 99 Room Air 05/05/25 10:34 05/05/25 10:34 05/05/25 10:34 05/05/25 10:34 05/05/25 10:34 05/05/25 10:34 Oxygen Delivery Method Room Air Weight: 102 lb Body Mass Index (BMI) 19.3 Intake & Output: Intake and Output for Last 24 Hours 05/03/25 05/04/25 05/05/25 23:59 23:59 23:59 Intake Total Balance Medical Nutrition Assessment Dietitian: Malnutrition Criteria Met Start: 05/04/25 11:54 Freq: Status: Active Protocol: Document 05/04/25 11:54 KAVITHA (Rec: 05/04/25 11:54 SLA [id number]) Nutrition Malnutrition Evidence of Yes Malnutrition Exists Malnutrition (severe Social/Behavioral/Environmental ): Evidenced By Suboptimal Energy Intake (Severe),Weight Loss (Severe) Clinical Problem Acute Disease or Injury Related Malnutrition Etiology related to polysubstance use and inadequate energy intake Signs/Symptoms as evidenced by po intake meeting <75% of estimated nutritional needs and unintended wt loss of ~18.5% in past three weeks. Status Active Problem Recommendation Dietitian Continue Regular diet w/ snacks tid as ordered Recommendations/ Will order 4 oz chocolate EPHP tid w/ meals for Changes increased nutrition if consumed Lab / Micro Data 05/03/25 19:00 05/03/25 19:00 Physical Exam Const alert and oriented x3 Constitutional Narrative: in mild distress due to withdrawal symptoms General Appearance: cooperative HEENT normocephalic, head/scalp atraumatic, moist oral mucous membranes and oropharynx normal Eyes PERRL Neck no lymphadenopathy and supple Lymph Lymphatic: no lymphedema noted Resp normal respiratory effort, normal air movement and clear to auscultation bilaterally Cardio regular rate, regular rhythm, S1 normal heart sound, S2 normal heart sound and no murmurs GI normal to inspection, nondistended, normoactive bowel sounds, soft to palpation, non-tender and non-distended Extremity normal capillary refill General Extremity: no tenderness to palpation of joints or extremities Skin General Skin Exam: no breakdown Neuro CN's II-XII intact bilaterally, no focal motor deficits and no sensory deficits noted Motor Exam: general weakness Psych thought process normal and cooperative Appearance: appropriate Assessment & Plan Assessment/Plan (1) Opiate withdrawal: PLAN: Plan #Acute opioid withdrawal * substance withdrawal from methadone note just opiates. According to addiction medicine, she will take a longer time to go through the withdrawal process. Buprenorphine taper increased to starting dose of 8mg * Per addiction medicine buprenorphine dose made scheduled Q8 last night by addiction medicine specialist * Monitor CINA score. Adjunctive meds for symptomatic relief. * addiction medicine consulted * #Hepatitis C: Patient tested positive for hepatitis C. Will check RNA level to evaluate for active infection. #Nicotine dependence: Counseled to quit. Nicotine patch 21 mg daily. #DVT prophylaxis: Low risk. Encourage ambulation. Charges/Coding Visit Charges Inpatient E&M: 47527 Subs Hosp L2
[2025-05-05 17:00] VITALS: BP 146/90; PULSE 62; RESP 16; TEMP 36.5; O2SAT 100
[2025-05-05] MEDS: hydrOXYzine PAM 25 MG Capsule 50 MG PO (17:01)
[2025-05-05 22:00] VITALS: BP 110/63; PULSE 71; RESP 15; TEMP 36.8; O2SAT 100
[2025-05-06 04:58] VITALS: BP 127/78; PULSE 70; RESP 15; TEMP 36.7; O2SAT 99
[2025-05-06 09:46] VITALS: BP 163/90; PULSE 77; RESP 16; TEMP 36.8; O2SAT 100
--- NOTE | 2025-05-06 14:18 | NURSING ---
went in to check on patient at 1400 pt was not in room. zip ties were broken off of black box and gown was laying beside the bed. checked pts bathroom pt was not there notified charge nurse and Dr. Salazar that patient had left.
--- NOTE | 2025-05-06 14:19 | DS.PCM_ITS ---
Providers Date of Admission: 05/03/25 Date of Discharge: 05/06/25 Primary Care Physician: Barb Love NP, CLASSIFIED COPY CONTROL CLERK-C Reason For Visit: ACUTE OPIATE WITHDRAWAL Diagnosis Discharge Diagnosis (1) Opiate withdrawal: Status: Acute Code(s): F11.93 - Opioid use, unspecified with withdrawal Plan #Acute opioid withdrawal * substance withdrawal from methadone note just opiates. According to addiction medicine, she will take a longer time to go through the withdrawal process. Buprenorphine taper increased to starting dose of 8mg * Per addiction medicine buprenorphine dose made scheduled Q8 last night by addiction medicine specialist * Monitor CINA score. Adjunctive meds for symptomatic relief. * addiction medicine consulted * #Hepatitis C: Patient tested positive for hepatitis C. Will check RNA level to evaluate for active infection. #Nicotine dependence: Counseled to quit. Nicotine patch 21 mg daily. #DVT prophylaxis: Low risk. Encourage ambulation. Hospital Course Operations None Procedures None Summary of Care Provided Minutes Spent on Discharge: 42 Hospital Course: Patient is a 34-year-old female with a past medical history as outlined including nicotine dependence, anxiety and depression as well as opiate use disorder was admitted to the ED on 05/03/2025 for acute opioid withdrawal. She had previously been on methadone with the last refill being 06/10/2024 and then she was transitioned to methadone. She had missed her appointment for the methadone and had been using heroin and cocaine recently prior to admission. She came in requested for acute opioid detox. He admitted to diaphoresis and lethargy as well as fatigue and chills and piloerection. Her last use of heroin was the day prior to admission. Labs essentially were unremarkable apart from hepatitis C antibody being positive. Urine tox was ordered. Serum alcohol level was less than 0.1. She was admitted and managed for acute opioid withdrawal. She was started on opioid withdrawal protocol with buprenorphine. Addiction medicine reviewed patient and felt that since she was withdrawing from methadone her buprenorphine dose should be increased. Was therefore increased to 80 mg and it was made scheduled Q8 hourly. Addiction medicine subsequently decreased the dosage to 4 mg after 1 day. Patient however requested that it be increased to 8 mg as she felt she was having withdrawal symptoms but I discussed with the addiction medicine coordinator who stated that they wanted the patient to remain on the 4 mg of buprenorphine for that day. Patient was seen on 05/06/2025 with her nurse by her bedside and complained of tremors and shakes as well as chills and feelings of withdrawal. She did not indicate that she was going to sign out AGAINST MEDICAL ADVICE at that time. As stated she had requested for her dosage to be increased to 8 mg. I was subsequently informed in the afternoon that patient had signed out AGAINST MEDICAL ADVICE. Patient therefore left AGAINST MEDICAL ADVICE on 05/06/2025. Patient was seen and examined on the day she signed out AGAINST MEDICAL ADVICE as noted above. Labs and vitals reviewed. Physical Exam Const alert and oriented x3 Constitutional Narrative: looked anxious General Appearance: cooperative HEENT normocephalic, head/scalp atraumatic, hearing grossly normal bilaterally and moist oral mucous membranes Mouth: oral and palatal mucosa normal Eyes PERRL, EOMs intact bilaterally and conjunctivae normal Neck no lymphadenopathy and supple Lymph Lymphatic: no lymphedema noted Resp normal respiratory effort, normal air movement and clear to auscultation bilaterally Cardio regular rate, regular rhythm, S1 normal heart sound, S2 normal heart sound and no murmurs GI normal to inspection, nondistended, normoactive bowel sounds, soft to palpation, non-tender and non-distended Extremity normal to inspection, full ROM and normal capillary refill General Extremity: no tenderness to palpation of joints or extremities Skin no rashes or lesions noted General Skin Exam: no breakdown Neuro oriented x3, CN's II-XII intact bilaterally, moves all extremities, no focal motor deficits and no sensory deficits noted Sensorium / Orientation: awake Motor Exam: general weakness Psych Mood & Affect: anxious Medical Records Data Medical Nutrition Assessment Dietitian: Malnutrition Criteria Met Start: 05/04/25 11:54 Freq: Status: Active Protocol: Document 05/06/25 10:39 RMA (Rec: 05/06/25 10:39 RMA [id number]) Nutrition Malnutrition Evidence of Yes Malnutrition Exists Malnutrition (severe Chronic ): Evidenced By Suboptimal Energy Intake (Severe),Weight Loss (Severe) Clinical Problem Chronic Disease or Condition Related Malnutrition Etiology Severe protein-calorie malnutrition in the context of chronic disease related to substance abuse and inadequate energy/oral intake Signs/Symptoms as evidenced by >10% unintentional weight loss in less than 1 month and PO meeting less than 50% estimated nutrition needs x past 1 month; BMI 19.3 Status Active Problem Recommendation Dietitian Continue Regular diet with snacks 3 times per day. Recommendations/ Will increase chocolate ensure plus HP from 120mL to Changes 240mL with meals 3 times per day. Trend weights as available. Weight / BMI Weight Weight: 102 lb Body Mass Index (BMI) 19.3 ABG / Lab / Microbiology Data 05/03/25 19:00 05/03/25 19:00 Laboratory: Laboratory Results - last 24 hr 05/04/25 06:06: Miscellaneous Test COMMENT D/C Instructions Discharge Activity: Return to Normal Activity DC O2, CPAP, BIPAP Needs Home O2 Discharge instructions: No Meaningful Use Info Meaningful Use Meaningful Use Diagnoses (Choose all that apply): None applicable Discharge Plan Admission Admit Date/Time: 05/03/25 20:18 Primary Reason for Your Visit: acute opioid withdrawal Attending Provider: Rosario Salazar Primary Care Provider: Barb Love NP Consulting Providers: Hui Berry Discharge Orders/Prescriptions Referrals / Follow Up: Barb Love NP, CLASSIFIED COPY CONTROL CLERK-C [Primary Care Provider] - Disposition Disposition (needs filled in before D/C Order can be placed): Against Medical Advice Charges/Coding Visit Charges Inpatient E&M: 86288 Disch Hosp >30min
[2025-05-08 14:08] LABS: HCV Quant. RNA PCR HCV Not Detected IU/mL (.)
== END 2025-05-06 12:17 | disposition left against medical advice (07) | DRG 894 ==
LOC: ED 20:19 → MS3 22:32
PROVIDERS: Admitting Provider Family Medicine; Emergency Provider Emergency Medicine; Referring Provider Emergency Medicine; Visit Provider Student in an Organized Health Care Education/Training Program
DX: F11.93 Opioid use, unspecified with withdrawal (principal); E43 Unspecified severe protein-calorie malnutrition; Z68.1 Body mass index [BMI] 19.9 or less, adult; B19.20 Unspecified viral hepatitis C without hepatic coma; F14.90 Cocaine use, unspecified, uncomplicated; F17.210 Nicotine dependence, cigarettes, uncomplicated; F41.9 Anxiety disorder, unspecified
CPT/HCPCS: 36415; 80053; 80307; 82077; 84703; 85025; 86703; 86706; 86780; 86803; 87340; 87522; 97802; 97803; 99283; 99406